=== PATIENT | female | born 1970 | race Caucasian/White ===

== ENCOUNTER 2016-07-06 16:05 | Inpatient (IN) | payer OTHER ==
[~2016-07-06] VITALS: Ht 160 cm; Wt 72.5 kg
[~2016-07-06 16:05] MED LIST: CYCL-36 PO; FURO20 PO; HYDR-3129 PO; HYDR-3533 PO; LABE100 PO; NYST100010 TOP; PREN0.01 PO; ZOLP1TAB32 PO
[2016-07-06 16:06] VITALS: BP 142/93; PULSE 133; RESP 16; TEMP 99; O2SAT 99
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
[2016-07-06] MEDS ORDERED: SODIUM CHLOR 0.9% 1000 ML INJ 1,000 ML IV ONE (16:45)
[2016-07-06 17:11] LABS: AUTOMATED NEUTROPHIL # 8.7 TH/MM3 (1.8-7.7); BASOPHIL # 0.1 TH/MM3 (0-0.2); BASOPHIL % 0.9 % (0.0-2.0); EOSINOPHIL # 0.5 TH/MM3 (0-0.4); EOSINOPHIL % 4.8 % (0.0-4.0); HEMATOCRIT 39.6 % (35.0-46.0); LYMPH % 3.5 % (9.0-44.0); LYMPHOCYTE # 0.4 TH/MM3 (1.0-4.8); MEAN CELL VOLUME 93.4 FL (80.0-100.0); MEAN CORPUSCULAR HEMOGLOBIN 30.7 PG (27.0-34.0); MEAN CORPUSCULAR HGB CONC 32.9 % (32.0-36.0); NEUT % 83.8 % (16.0-70.0); PLATELET COUNT 51 TH/MM3 (150-450); RED BLOOD COUNT 4.24 MIL/MM3 (4.00-5.30); RED CELL DISTRIBUTION WIDTH 16.9 % (11.6-17.2); WHITE BLOOD COUNT 10.3 TH/MM3 (4.0-11.0)
[2016-07-06 17:14] LABS: HEMO FLAGS AUTO DIFF
[2016-07-06 17:41] LABS: BICARBONATE 21.6 MEQ/L (21.0-32.0)
[2016-07-06 17:46] LABS: POTASSIUM 4.9 MEQ/L (3.5-5.1)
[2016-07-06 17:59] LABS: BANDS 35 % (0-6); METAMYELOCYTES 4 % (0-1); MYELOCYTES 1 % (0-0); NEUTROPHIL # MANUAL DIFF 8.9 TH/MM3 (1.8-7.7); PLATELET ESTIMATE SMEAR LOW (NORMAL); PLATELET MORPHOLOGY NORMAL (NORMAL); POLYS (SEG NEUTROPHILS) 46 % (16-70); SCAN/DIFF FINAL DIFF MANUAL; WBC DIFF SAMPLE 100
[2016-07-06] MEDS ORDERED: SODIUM CHLOR 0.9% 1000 ML INJ 1,000 ML IV SCH (19:01)
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
[2016-07-06 19:15] VITALS: BP 151/75; PULSE 127; RESP 21; TEMP 98.8; O2SAT 99
[2016-07-06] MEDS ORDERED: ACETAMINOPHEN/CODEINE 300 MG/30 MG TAB PO ONE (19:15)
--- NOTE | 2016-07-06 19:37 | RADRPT ---
EXAM DATE/TIME: 07/06/2016 19:23 [facility] COMPARISON: CHEST SINGLE AP, February 10, 2016, 15:49. INDICATIONS : Chest pain. MEDICAL HISTORY : SURGICAL HISTORY : None. ENCOUNTER: Initial ACUITY: 1 day PAIN SCORE: 0/10 LOCATION: Bilateral chest FINDINGS: A single view of the chest demonstrates the lungs to be symmetrically aerated without evidence of mas s, infiltrate or effusion. The cardiomediastinal contours are unremarkable. Osseous structures are intact. CONCLUSION: No acute disease. Iban Mann MD on July 06, 2016 at 19:34 Board Certified Radiologist. This report was verified electronically.
[2016-07-06 21:12] VITALS: BP 142/74; PULSE 110; RESP 20; O2SAT 97
[2016-07-06] MEDS ORDERED: ONDANSETRON HCL 4 MG/2 ML VIAL IV PUSH PRN (21:15)
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
[2016-07-06] MEDS: LORazepam 2 MG/ML VIAL IV PUSH PRN (21:44)
--- NOTE | 2016-07-06 23:30 | RADRPT ---
EXAM DATE/TIME: 07/06/2016 22:23 [facility] COMPARISON: No previous studies available for comparison. INDICATIONS : Increased labs. MEDICAL HISTORY : Hypertension. . Migraines. Asthma. Back pain. Anxiety. SURGICAL HISTORY : Tonsillectomy. Gastric bypass. Dilation and curettage. Urethral stretching. ENCOUNTER: Initial ACUITY: 1 day PAIN SCORE: 4/10 LOCATION: Bilateral flank MEASUREMENTS: RIGHT KIDNEY: 12.2 x 6.1 x 5.9 cm LEFT KIDNEY: 12.4 x 6.1 x 6.6 cm FINDINGS: RIGHT KIDNEY: Renal cortex is normal in thickness and echotexture. No hydronephrosis, stone, or mass. LEFT KIDNEY: Renal cortex is normal in thickness and echotexture. No hydronephrosis, stone, or mass. BLADDER: Within normal limits given the degree of distension. CONCLUSION: Normal examination. Juan Alberto Raya MD on July 06, 2016 at 23:28 Board Certified Radiologist. This report was verified electronically.
[2016-07-07] VITALS (9 sets, daily range): BP systolic 129–154; BP diastolic 66–92; PULSE 120–132; RESP 20–35; TEMP 97.6–99.8; O2SAT 94–96
[2016-07-07] MEDS: MORPHINE SULFATE 4 MG/ML INJ IV PUSH PRN ×4 (00:42→21:47)
[2016-07-07 05:43] LABS: HEMATOCRIT 32.8 % (35.0-46.0); MEAN CELL VOLUME 92.3 FL (80.0-100.0); MEAN CORPUSCULAR HEMOGLOBIN 31.7 PG (27.0-34.0); MEAN CORPUSCULAR HGB CONC 34.4 % (32.0-36.0); PLATELET COUNT 26 TH/MM3 (150-450); RED BLOOD COUNT 3.56 MIL/MM3 (4.00-5.30); RED CELL DISTRIBUTION WIDTH 17.1 % (11.6-17.2); WHITE BLOOD COUNT 6.2 TH/MM3 (4.0-11.0)
[2016-07-07 05:46] LABS: HEMO FLAGS AUTO DIFF
[2016-07-07 06:02] LABS: BICARBONATE 16.4 MEQ/L (21.0-32.0); POTASSIUM 3.8 MEQ/L (3.5-5.1)
[2016-07-07 06:12] LABS: CALCIUM-PROTEIN CORRECTED 7.7 MG/DL (8.5-10.1); TOTAL BILIRUBIN ADULT 1.7 MG/DL (0.2-1.0)
[2016-07-07 07:05] LABS: BANDS 21 % (0-6); METAMYELOCYTES 14 % (0-1); MYELOCYTES 3 % (0-0); NEUTROPHIL # MANUAL DIFF 5.1 TH/MM3 (1.8-7.7); POLYS (SEG NEUTROPHILS) 43 % (16-70); PROMYELOCYTES 1 % (0-0); WBC DIFF SAMPLE 100
[2016-07-07 07:06] LABS: PLATELET ESTIMATE SMEAR LOW (NORMAL); PLATELET MORPHOLOGY NORMAL (NORMAL); SCAN/DIFF FINAL DIFF MANUAL
[2016-07-07] MEDS ORDERED: DEXT 5%-NACL 0.9% 1000 ML INJ 1,000 ML IV ONE (10:00)
[2016-07-07] MEDS ORDERED: DIATRIZOATE MEGLUM/DIATRIZOATE SOD 9 ML CUP PO ONE (11:15)
--- NOTE | 2016-07-07 11:45 | EKG ---
Date Performed: 07/06/2016 Time Performed: 16:39:44 PTAGE: 46 years EKG: SINUS TACHYCARDIA MARKED LEFT AXIS DEVIATION INCOMPLETE RIGHT BUNDLE BRANCH BLOCK SEPTAL MY OCARDIAL INFARCTION ABNORMAL ECG NO PREVIOUS TRACING DOCTOR: Shayne Fraga Interpretating Date/Time 07/07/2016 11:44:21
[2016-07-07 12:08] LABS: BACTERIA, URINE MANY /hpf; BLOOD, URINE MOD (NEG); COMMENT (UR) CULTURE INDICATED; CULTURE IF INDICATED CULTURE INDICATED; GLUCOSE,URINE NEG (NEG); KETONE, URINE NEG (NEG); NITRITE,URINE NEG (NEG); SQUAMOUS EPITHELIAL CELL URINE 1 /hpf (0-5); URINE COLOR YELLOW (YELLW/STRAW)
--- NOTE | 2016-07-07 13:13 | HHI.PR ---
Objective Vitals Vital Signs Date Time Temp Pulse Resp B/P Pulse Ox O2 Delivery O2 Flow Rate FiO2 07/07/16 12:00 98.4 128 22 129/92 95 07/07/16 08:00 98.8 130 20 145/75 95 07/07/16 07:39 Room Air 07/07/16 04:00 99.2 132 22 154/79 96 07/07/16 00:42 22 07/07/16 00:00 97.6 120 22 139/84 95 07/06/16 23:52 Room Air 07/06/16 21:12 110 20 142/74 97 Room Air 07/06/16 19:15 98.8 127 21 151/75 99 Room Air 07/06/16 16:06 99.0 133 16 142/93 99 Room Air 07/06/16 07/06/16 07/07/16 15:00 23:00 07:00 Intake Total 240 ml Balance 240 ml Intake Oral 240 ml # Voids 1 # Bowel Movements 0 Result Diagram: 07/07/16 0400 07/07/16 0400 Imaging Last 72 hours Impressions Chest X-Ray 07/06/16 0000 Signed Impressions: Service Date/Time: Wednesday, July 06, 2016 19:23 - CONCLUSION: No acute disease. MD Perri Conley Richard L MD Jul 07, 2016 13:13
[2016-07-07] MEDS: AZTREONAM INJ 1,000 MG in SODIUM CHLORIDE 0.9% INJ 100 ML IV SCH (15:16)
--- NOTE | 2016-07-07 15:21 | RADRPT ---
EXAM DATE/TIME: 07/07/2016 14:39 [facility] COMPARISON: No previous studies available for comparison. INDICATIONS : Altered mental status RADIATION DOSE: 49.32 CTDIvol (mGy) MEDICAL HISTORY : Hypertension. SURGICAL HISTORY : ENCOUNTER: Initial ACUITY: 1 day PAIN SCALE: 2/10 LOCATION: TECHNIQUE: Multiple contiguous axial images were obtained of the head. Using automated exposure control and adj ustment of the mA and/or kV according to patient size, radiation dose was kept as low as reasonably a chievable to obtain optimal diagnostic quality images. FINDINGS: CEREBRUM: The ventricles are normal for age. No evidence of midline shift, mass lesion, hemorrhage or acute in farction. No extra-axial fluid collections are seen. POSTERIOR FOSSA: The cerebellum and brainstem are intact. The 4th ventricle is midline. The cerebellopontine angle i s unremarkable. EXTRACRANIAL: The visualized portion of the orbits is intact. SKULL: The calvaria is intact. No evidence of skull fracture. CONCLUSION: No acute disease. Scotty Shaw MD on July 07, 2016 at 15:19 Board Certified Radiologist. This report was verified electronically.
[2016-07-07 15:38] LABS: APTT (PATIENT) 40.6 SEC (24.3-30.1); INTERNATIONAL NORMALIZED RATIO 1.5 RATIO; PROTHROMBIN TIME - PATIENT 16.7 SEC (9.8-11.6)
--- NOTE | 2016-07-07 16:05 | RADRPT ---
EXAM DATE/TIME: 07/07/2016 14:42 [place] COMPARISON: US KIDNEY/RENAL/BLADDER, July 06, 2016, 22:23. INDICATIONS : Abdomen pain ORAL CONTRAST: Prescribed oral contrast ingested. RADIATION DOSE: 8.63 CTDIvol (mGy) MEDICAL HISTORY : Hypertension. SURGICAL HISTORY : ENCOUNTER: Initial ACUITY: 1 day PAIN SCALE: 4/10 LOCATION: TECHNIQUE: Volumetric scanning of the abdomen and pelvis was performed. Using automated exposure control and ad justment of the mA and/or kV according to patient size, radiation dose was kept as low as reasonably achievable to obtain optimal diagnostic quality images. FINDINGS: LOWER LUNGS: Small right pleural effusion is noted. Lung bases are otherwise clear. LIVER: No evidence of dilated biliary ducts or focal mass. Small gallstone is identified in the gallbladder. There is no pericholecystic fluid or wall thickening. SPLEEN: Normal size without lesion. PANCREAS: Within normal limits. KIDNEYS: The kidneys are symmetrically enlarged and demonstrate diffuse cortical thickening. There is no evide nce of hydronephrosis, nephrolithiasis or discrete mass. Mild perinephric stranding is noted. ADRENAL GLANDS: Within normal limits. VASCULAR: There is no aortic aneurysm. BOWEL/MESENTERY: Air is present throughout the GI tract. There are air-filled loops of small bowel containing air-flui d levels. Several are mildly distended. Significant gas and stool is present in the colon. There is n o significant wall edema. Post surgical changes are identified in the epigastric region. A staple line is identified along the lesser curvature of the stomach. The patient has undergone a gastric bypass with a gastrojejunos david. There is free flow of contrast into the jejunum. A fluid-filled gastric remnant is identified w hich leads to the duodenum. There is no contrast in this fluid-filled segments. ABDOMINAL WALL: Mild edematous changes are developing within the abdominal wall. RETROPERITONEUM: There is no lymphadenopathy. BLADDER: Catheter is identified. Urine bladder is collapsed. REPRODUCTIVE: Postsurgical clips are seen along the adnexa and broad ligament. INGUINAL: There is no lymphadenopathy or hernia. MUSCULOSKELETAL: Within normal limits for patient age. CONCLUSION: Status post gastric bypass with what may be a fluid-filled gastric remnant. This may be chronic howev er a blind loop syndrome should be excluded. Enlarged kidneys with diffuse cortical thickening; evaluate for possible bilateral pyelonephritis. Intestinal ileus without evidence of mechanical obstruction. Ischemic bowel should be excluded. Cholelithiasis without evidence of gallbladder inflammation. Developing anasarca Scotty Shaw MD on July 07, 2016 at 15:38 Board Certified Radiologist. This report was verified electronically.
[2016-07-07] MEDS ORDERED: SODIUM BICARBONATE 8.4% INJ 75 MEQ in SODIUM CHLOR 0.45% 1000 ML INJ 1,000 ML IV SCH (17:00)
[2016-07-07 18:08] LABS: INDIRECT BILIRUBIN 0.6 MG/DL (0.0-0.8); TOTAL BILIRUBIN ADULT 1.9 MG/DL (0.2-1.0)
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
[2016-07-07 20:01] LABS: AUTOMATED NEUTROPHIL # 7.4 TH/MM3 (1.8-7.7); BASOPHIL % 0.1 % (0.0-2.0); EOSINOPHIL # 0.2 TH/MM3 (0-0.4); EOSINOPHIL % 2.2 % (0.0-4.0); HEMATOCRIT 33.3 % (35.0-46.0); HEMO FLAGS AUTO DIFF; LYMPH % 7.2 % (9.0-44.0); LYMPHOCYTE # 0.6 TH/MM3 (1.0-4.8); MEAN CELL VOLUME 92.4 FL (80.0-100.0); MEAN CORPUSCULAR HEMOGLOBIN 31.5 PG (27.0-34.0); MEAN CORPUSCULAR HGB CONC 34.1 % (32.0-36.0); MONO % 6.3 % (0.0-8.0); NEUT % 84.2 % (16.0-70.0); RED CELL DISTRIBUTION WIDTH 17.3 % (11.6-17.2); WHITE BLOOD COUNT 8.8 TH/MM3 (4.0-11.0)
[2016-07-07 20:03] LABS: PLATELET COUNT 9 TH/MM3 (150-450)
[2016-07-07 20:28] LABS: BANDS 28 % (0-6); METAMYELOCYTES 4 % (0-1); MYELOCYTES 1 % (0-0); POLYS (SEG NEUTROPHILS) 58 % (16-70); WBC DIFF SAMPLE 100
[2016-07-07 20:29] LABS: DOHLE BODIES PRESENT (NONE SEEN); PLATELET ESTIMATE SMEAR LOW (NORMAL); PLATELET MORPHOLOGY ENLARGED (NORMAL); SCAN/DIFF FINAL DIFF MANUAL; TOXIC GRANULATION 1+ (NORMAL)
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
[2016-07-07] MEDS: SODIUM BICARBONATE 8.4% INJ 150 MEQ in DEXTROSE 5% IN WATE 1000ML INJ 1,000 ML IV SCH ×2 (21:20)
[2016-07-08] VITALS (15 sets, daily range): BP systolic 124–168; BP diastolic 65–94; PULSE 118–130; RESP 20–41; TEMP 97.8–98.8; O2SAT 88–96
[2016-07-08] MEDS: MORPHINE SULFATE 4 MG/ML INJ IV PUSH PRN (01:54)
[2016-07-08] MEDS: AZTREONAM INJ 1,000 MG in SODIUM CHLORIDE 0.9% INJ 100 ML IV SCH ×2 (01:54→15:00)
[2016-07-08] MEDS ORDERED: CHLORHEXIDINE GLUCONATE 2 % 1 PACK (2 CLOTHS)(extra cloths) TOPICAL PRN (02:45)
[2016-07-08] MEDS ORDERED: GLUCAGON 1 MG/ML VIAL OTHER PRN ×2 (04:00→09:30)
[2016-07-08] MEDS: CHLORHEXIDINE GLUCONATE 2 % 1 PACK (2 CLOTHS)(taper/protocol) TOPICAL SCH (04:00)
[2016-07-08] MEDS: DEXTROSE 50% IN WATER 50 ML VIAL(D50) IV PUSH PRN ×3 (04:25→09:35)
[2016-07-08 05:29] LABS: HEMATOCRIT 30.6 % (35.0-46.0); MEAN CORPUSCULAR HEMOGLOBIN 31.9 PG (27.0-34.0); MEAN CORPUSCULAR HGB CONC 34.7 % (32.0-36.0); PLATELET COUNT 33 TH/MM3 (150-450); RED BLOOD COUNT 3.32 MIL/MM3 (4.00-5.30); RED CELL DISTRIBUTION WIDTH 17.1 % (11.6-17.2); WHITE BLOOD COUNT 6.9 TH/MM3 (4.0-11.0)
[2016-07-08 05:32] LABS: HEMO FLAGS AUTO DIFF
[2016-07-08 05:59] LABS: APTT (PATIENT) 40.1 SEC (24.3-30.1); INTERNATIONAL NORMALIZED RATIO 1.5 RATIO; PROTHROMBIN TIME - PATIENT 16.7 SEC (9.8-11.6)
[2016-07-08 06:04] LABS: ALKALINE PHOSPHATASE 131 U/L (45-117); ALT (GPT) 160 U/L (10-53); ANION GAP 16 MEQ/L (5-15); AST (GOT) 111 U/L (15-37); BICARBONATE 18.1 MEQ/L (21.0-32.0); BLOOD UREA NITROGEN 60 MG/DL (7-18); CHLORIDE 90 MEQ/L (98-107); FERRITIN 222 NG/ML (8-252); GLOMERULAR FILTRATION RATE 9 ML/MIN (>89); MAGNESIUM 1.4 MG/DL (1.5-2.5); POTASSIUM 4.4 MEQ/L (3.5-5.1); TOTAL BILIRUBIN ADULT 2.5 MG/DL (0.2-1.0); TRANSFERRIN IRON PROFILE 131 MG/DL (200-360)
[2016-07-08 06:21] LABS: CALCIUM-PROTEIN CORRECTED 7.2 MG/DL (8.5-10.1); SODIUM (NA) 124 MEQ/L (136-145)
[2016-07-08 08:55] LABS: BANDS 49 % (0-6); METAMYELOCYTES 1 % (0-1); NEUTROPHIL # MANUAL DIFF 6.6 TH/MM3 (1.8-7.7); POLYS (SEG NEUTROPHILS) 45 % (16-70); WBC DIFF SAMPLE 100
[2016-07-08 08:56] LABS: DOHLE BODIES PRESENT (NONE SEEN)
[2016-07-08 08:57] LABS: PLATELET ESTIMATE SMEAR LOW (NORMAL); PLATELET MORPHOLOGY NORMAL (NORMAL); SCAN/DIFF FINAL DIFF MANUAL; TOXIC VACUOLATION PRESENT (NONE SEEN)
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
[2016-07-08] MEDS ORDERED: RESP: ALBUTEROL 2.5 MG/IPRATROPIUM 0.5 MG NEB (PRN) NEB (09:30)
[2016-07-08] MEDS ORDERED: DEXTROSE 50% IN WATER 50 ML VIAL(D50) IV PUSH PRN (09:30)
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
[2016-07-08] MEDS: INSULIN NovoLIN REGULAR SUPPLEMENTAL SCALE SQ SCH ×4 (10:00→22:00)
[2016-07-08] MEDS ORDERED: MAGNESIUM SULFATE 1 GM PREMIX 100 ML IV ONE (10:00)
[2016-07-08] MEDS: DILTIAZEM HCL 60 MG TAB PO SCH ×4 (10:06→20:42)
[2016-07-08] MEDS ORDERED: CALCIUM GLUCONATE INJ 1 GM in SODIUM CHLORIDE 0.9% INJ 100 ML IV ONE (11:00)
--- NOTE | 2016-07-08 12:11 | PD.ONC.PN ---
Subjective Subjective Remarks Afebrile overnight. Patient feeling fatigued. No bleeding. Just finished with echo. Objective Data Date Time Temp Pulse Resp B/P Pulse Ox O2 Delivery O2 Flow Rate FiO2 07/08/16 08:00 Nasal Cannula 5.00 07/08/16 06:00 128 07/08/16 04:00 130 07/08/16 04:00 97.8 130 32 168/72 92 07/08/16 02:00 130 07/08/16 00:00 128 07/08/16 00:00 98.0 128 32 151/70 90 07/07/16 22:00 130 07/07/16 20:00 130 07/07/16 20:00 98.3 130 35 145/66 94 07/07/16 19:00 89 Nasal Cannula 3.00 07/07/16 18:00 129 07/07/16 16:00 99.8 132 22 131/84 94 07/07/16 12:00 98.4 128 22 129/92 95 07/08/16 07/08/16 07/08/16 07:00 15:00 23:00 Intake Total 964 ml Output Total 100 ml Balance 864 ml Result Diagram: 07/08/16 0443 07/08/16 0443 Laboratory Results Laboratory Tests Test 07/07/16 07/07/16 07/07/16 07/07/16 15:10 17:35 18:45 19:40 Prothrombin Time 16.7 SEC Prothromb Time International 1.5 RATIO Ratio Activated Partial 40.6 SEC Thromboplast Time Fibrinogen 443 mg/dL Haptoglobin 182 MG/DL Phosphorus Level 5.2 MG/DL Total Bilirubin 1.9 MG/DL Direct Bilirubin 1.3 MG/DL Indirect Bilirubin 0.6 MG/DL Aspartate Amino Transf 100 U/L (AST/SGOT) Alanine Aminotransferase 188 U/L (ALT/SGPT) Alkaline Phosphatase 135 U/L Lactate Dehydrogenase 666 U/L Total Protein 5.1 GM/DL Albumin 1.8 GM/DL Complement C3 73 MG/DL Complement C4 18 MG/DL Nasal Screen MRSA (PCR) NEGATIVE White Blood Count 8.8 TH/MM3 Red Blood Count 3.60 MIL/MM3 Hemoglobin 11.3 GM/DL Hematocrit 33.3 % Mean Corpuscular Volume 92.4 FL Mean Corpuscular Hemoglobin 31.5 PG Mean Corpuscular Hemoglobin 34.1 % Concent Red Cell Distribution Width 17.3 % Platelet Count 9 TH/MM3 Mean Platelet Volume 9.2 FL Neutrophils (%) (Auto) 84.2 % Lymphocytes (%) (Auto) 7.2 % Monocytes (%) (Auto) 6.3 % Eosinophils (%) (Auto) 2.2 % Basophils (%) (Auto) 0.1 % Neutrophils # (Auto) 7.4 TH/MM3 Lymphocytes # (Auto) 0.6 TH/MM3 Monocytes # (Auto) 0.6 TH/MM3 Eosinophils # (Auto) 0.2 TH/MM3 Basophils # (Auto) 0.0 TH/MM3 CBC Comment AUTO DIFF Differential Total Cells 100 Counted Neutrophils % (Manual) 58 % Band Neutrophils % 28 % Lymphocytes % 7 % Monocytes % 2 % Neutrophils # (Manual) 8.0 TH/MM3 Metamyelocytes 4 % Myelocytes 1 % Differential Comment FINAL DIFF MANUAL Toxic Granulation 1+ Dohle Bodies PRESENT Platelet Estimate LOW Platelet Morphology Comment ENLARGED Red Cell Morphology Comment NORMAL Lactic Acid Level 2.6 mmol/L Test 07/08/16 07/08/16 07/08/16 01:29 04:43 05:18 Blood Type A POSITIVE Blood Bank Comment White Blood Count 6.9 TH/MM3 Red Blood Count 3.32 MIL/MM3 Hemoglobin 10.6 GM/DL Hematocrit 30.6 % Mean Corpuscular Volume 92.0 FL Mean Corpuscular Hemoglobin 31.9 PG Mean Corpuscular Hemoglobin 34.7 % Concent Red Cell Distribution Width 17.1 % Platelet Count 33 TH/MM3 Mean Platelet Volume 8.3 FL Neutrophils (%) (Auto) % Lymphocytes (%) (Auto) % Monocytes (%) (Auto) % Eosinophils (%) (Auto) % Basophils (%) (Auto) % Neutrophils # (Auto) TH/MM3 Lymphocytes # (Auto) TH/MM3 Monocytes # (Auto) TH/MM3 Eosinophils # (Auto) TH/MM3 Basophils # (Auto) TH/MM3 CBC Comment AUTO DIFF Differential Total Cells 100 Counted Neutrophils % (Manual) 45 % Band Neutrophils % 49 % Lymphocytes % 5 % Neutrophils # (Manual) 6.6 TH/MM3 Metamyelocytes 1 % Differential Comment FINAL DIFF MANUAL Toxic Vacuolation PRESENT Dohle Bodies PRESENT Platelet Estimate LOW Platelet Morphology Comment NORMAL Red Cell Morphology Comment NORMAL Sodium Level 124 MEQ/L Potassium Level 4.4 MEQ/L Chloride Level 90 MEQ/L Carbon Dioxide Level 18.1 MEQ/L Anion Gap 16 MEQ/L Blood Urea Nitrogen 60 MG/DL Creatinine 5.18 MG/DL Estimat Glomerular Filtration 9 ML/MIN Rate Random Glucose 144 MG/DL Lactic Acid Level 3.3 mmol/L Calcium Level 6.2 MG/DL Protein Corrected Calcium 7.2 MG/DL Phosphorus Level 3.9 MG/DL Magnesium Level 1.4 MG/DL Iron Level 28 MCG/DL Total Iron Binding Capacity 183 MCG/DL Percent Iron Saturation 15.3 % Ferritin 222 NG/ML Total Bilirubin 2.5 MG/DL Aspartate Amino Transf 111 U/L (AST/SGOT) Alanine Aminotransferase 160 U/L (ALT/SGPT) Alkaline Phosphatase 131 U/L Total Protein 5.0 GM/DL Albumin 1.7 GM/DL Vitamin B12 Level GREATER THAN 2000 PG/ML Prothrombin Time 16.7 SEC Prothromb Time International 1.5 RATIO Ratio Activated Partial 40.1 SEC Thromboplast Time Fibrinogen 377 mg/dL Culture Results Microbiology Date/Time Procedure Status Source Growth 07/07/16 11:00 Urine Culture Received Urine Clean Catch Pending 07/07/16 12:45 Aerobic Blood Culture - Preliminary Resulted Blood Peripheral Gram Negative Stanton 07/07/16 12:45 Anaerobic Blood Culture - Preliminary Resulted Gram Negative Stanton 07/07/16 12:53 Aerobic Blood Culture - Preliminary Resulted Blood Peripheral Gram Negative Stanton 07/07/16 12:53 Anaerobic Blood Culture - Preliminary Resulted Gram Negative Stanton Administered Medications Medications (Trade) Dose Ordered Sig/Dulce Route PRN Reason Start Time Stop Time Status Last Admin Dose Admin Morphine Sulfate (Morphine Inj) 2 mg Q3H PRN IV PUSH pain level 3-10 07/06/16 21:15 07/08/16 01:54 Lorazepam 1 mg 1 mg Q6H PRN IV PUSH anxiety 07/06/16 21:15 07/06/16 21:44 Aztreonam 1000 mg/ Sodium Chloride 100 ml @ 200 mls/hr Q12H IV 07/07/16 15:00 07/08/16 01:54 Sodium Bicarbonate/ Dextrose (Sodium Bicarbonate 8.4% Inj/D5W 1000 ml Inj) 1,150 ml @ 84 mls/hr [id number] IV 07/07/16 21:00 07/07/16 21:20 Chlorhexidine Gluconate (Chlorhexidine 2% Cloth) 3 pack DAILY@04 TOPICAL 4/18/17 04:00 07/12/16 04:01 07/08/16 04:00 Dextrose (D50w (Vial) Inj) 25 ml UNSCH PRN IV PUSH HYPOGLYCEMIA-SEE COMMENTS 07/08/16 04:00 07/08/16 09:35 Diltiazem HCl (Cardizem) 60 mg QID PO 07/08/16 10:00 07/08/16 10:06 Objective Remarks GENERAL: Middle aged female, lying in bed, appears weak. SKIN: Warm and dry. HEAD: Atraumatic. Normocephalic. EYES: No injection or drainage. ENT: No nasal bleeding or discharge. NECK: Trachea midline. CARDIOVASCULAR: Regular rate and rhythm. RESPIRATORY: diminished at bases. occasional rhonchi. on 5L O2 via NC. GASTROINTESTINAL: Abdomen soft, non-tender, nondistended. MUSCULOSKELETAL: Extremities without clubbing, cyanosis, or edema. No obvious deformities. NEUROLOGICAL: Awake and alert. lethargic. Assessment/Plan Problem List: (1) Thrombocytopenia Status: Acute Plan: 07/08: coags remain prolonged. thrombocytopenia likely d/t consumption with sepsis. will order u/s LE to r/o DVT. expect thrombocytopenia to resolve as sepsis resolves. --most likely due to sepsis syndrome. --other differential is TTP versus HUS versus ITP versus HIT. --peripheral blood smear reviewed with pathologist-->Significant numbers of red cell fragment schistocytes are not present and the microangiopathic hemolytic process is not favored. L --LDH is high at 666 which I believe is due to liver injury and not from the hemolysis. Therefore, I do not think that we are dealing with either TTP or HUS. --if platelet count drops to less than 10, recommend transfusion of platelets Assessment 46y/o female with acute thrombocytopenia. h/o Morbid obesity, s/p gastric bypass Anxiety Ureteral stenosis Attending Statement sob and rtestless BC = Gram negative E. Coli Thrombocytopenia is due to sepsis and DIC consult ID for A/B MG. Has Dawna Guy Jul 08, 2016 12:11 Kalpana Logan MD Jul 08, 2016 20:52
[2016-07-08] MEDS: RESP: ALBUTEROL 2.5 MG/IPRATROPIUM 0.5 MG NEB (SCH) NEB ×3 (12:34→21:09)
[2016-07-08] MEDS: SODIUM BICARBONATE 8.4% INJ 150 MEQ in DEXTROSE 5% IN WATE 1000ML INJ 1,000 ML IV SCH ×2 (12:36)
--- NOTE | 2016-07-08 14:54 | EC ---
Study Study Date:07/08/2016 STUDY CONCLUSIONS SUMMARY - Left ventricle: The cavity size was normal. Wall thickness was normal. Systolic function was mildly reduced. The estimated ejection fraction was in the range of 45% to 50%. Diffuse hypokinesis. - Aortic valve: Valve area: 3.14cm^2 (Vmax). Impressions: No evidence of endocarditis. If LV function is below 40, please consider prescribing an ACEI or ARB or document rationale for non-use. PROCEDURE DATA STUDY STATUS: Elective. Procedure: Transthoracic echocardiography. Image quality was good. Scanning was performed from the parasternal, apical, and subcostal acoustic windows. Study completion: The patient tolerated the procedure well. Transthoracic echocardiography. M-mode, complete 2D, complete spectral Doppler, and color Doppler. Height: Height: 63in. Weight: Weight: 153.7lb. Body mass index: BMI: 27.3kg/m^2. Body surface area: BSA: 1.73m^2. Patient status: Inpatient. CARDIAC ANATOMY LEFT VENTRICLE: The cavity size was normal. Wall thickness was normal. Systolic function was mildly reduced. The estimated ejection fraction was in the range of 45% to 50%. Diffuse hypokinesis. AORTIC VALVE: Trileaflet; normal thickness leaflets. Doppler: Transvalvular velocity was within the normal range. There was no stenosis. No regurgitation. Valve area: 3.14cm^2 (Vmax). Indexed valve area: 1.82cm^2/m^2 (Vmax). AORTA: Aortic root: The aortic root was normal in size. MITRAL VALVE: Structurally normal valve. Doppler: Transvalvular velocity was within the normal range. There was no evidence for stenosis. No regurgitation. Valve area by pressure half-time: 5.79cm^2. Indexed valve area by pressure half-time: 3.35cm^2/m^2. LEFT ATRIUM: The atrium was normal in size. RIGHT VENTRICLE: The cavity size was normal. Wall thickness was normal. PULMONIC VALVE: Doppler: Transvalvular velocity was within the normal range. There was no evidence for stenosis. No regurgitation. TRICUSPID VALVE: Structurally normal valve. Doppler: Transvalvular velocity was within the normal range. No regurgitation. PULMONARY ARTERY: The main pulmonary artery was normal-sized. Systolic pressure was within the normal range. RIGHT ATRIUM: The atrium was normal in size. PERICARDIUM: There was no pericardial effusion. SYSTEMIC VEINS: Inferior vena cava: The vessel was normal in size. Patient weight: 153.7lb _Ejection fraction:_ 65-75% _Fractional shortening:_ 32% up to 5Kg 5-11.5Kg 11.6-22.9Kg 23-45Kg 45-57Kg Aortic Root 7-13 <17 13-22 17-27 17-27 LA diam 6-13 <23 24-38 33-47 37-40 RVID 10-17 7-15 7-15 7-18 8-17 LVIDd 12-22 <32 24-38 33-47 37-40 LVPW 2-4 3-6 5-7 6-8 7-8 IVS 2-4 3-6 5-7 6-8 7-8 BASIC MEASUREMENTS ADULT NORMAL Left ventricle LV internal dimension, ED, chordal *41.7 mm 43-52 level, PLAX LV internal dimension, ES, chordal 33.9 mm 23-38 level, PLAX Fractional shortening, chordal level, *19 % >29 PLAX LV posterior wall thickness, ED 10.4 mm IVS/LVPW ratio, ED 1.03 <1.3 Volume, ED, MOD, 1-plane 79 ml Volume, ES, MOD, 1-plane 42 ml Ejection fraction, MOD, 1-plane 47 % Stroke volume, MOD, 1-plane 37 ml Volume index, ED, MOD, 1-plane 46 ml/m^2 Volume index, ES, MOD, 1-plane 24 ml/m^2 Stroke index, MOD, 1-plane 21.4 ml/m^2 Ventricular septum Septal thickness, ED 10.7 mm Aortic valve Leaflet separation 21 mm 15-26 Aorta Root diameter, ED 32 mm Left atrium Anterior-posterior dimension 29 mm Anterior-posterior dimension index 1.68 cm/m^2 <2.2 Right ventricle RV internal dimension, ED, PLAX 23.7 mm 19-38 BASIC MEASUREMENTS ADULT NORMAL Aortic valve Leaflet separation 21 mm 15-26 Aorta Root diameter, ED 32 mm 20-37 DOPPLER MEASUREMENTS ADULT NORMAL Aortic valve Peak velocity, S 113 cm/s Valve area, Vmax 3.14 cm^2 Valve area index, Vmax 1.82 cm^2/m^2 Mitral valve Pressure half-time 38 ms Valve area, pressure half-time 5.79 cm^2 Valve area index, pressure half-time 3.35 cm^2/m^2 Pulmonic valve Peak velocity, S 105 cm/s LEGEND: Mean values are shown as u=mean value. Asterisk (*) tenorio values outside specified normal range. Prepared and signed by Lainey Meza [id number]
--- NOTE | 2016-07-08 17:10 | HHI.NPPN ---
Subjective General Problems: Anemia Renal Failure: Acute History of Present Illness 46-year-old female with a past medical history of morbid obesity, anxiety, history of urethral stenosis came to the hospital with back pain and dark urine. I was called to see the patient for elevated BUN and creatinine. The patient previously has creatinine of 0.4-0.5 this was in 2014. Additional Remarks Patient is alert, with nasal cannula, not in distress. Review of Systems General Constitutional: Fatigue Cardiovascular Cardiac: Palpitations, LEA Objective Data Data 07/07/16 07/08/16 19:00 07:00 Intake Total 500 ml 1114 ml Output Total 600 ml 150 ml Balance -100 ml 964 ml Intake Oral 240 ml IV Total 260 ml 920 ml Platelets 194 ml Output Urine Total 600 ml 150 ml # Bowel Movements 0 Vital Signs Date Time Temp Pulse Resp B/P Pulse Ox O2 Delivery O2 Flow Rate FiO2 07/08/16 14:00 121 07/08/16 12:00 98.3 121 22 155/71 92 07/08/16 12:00 121 07/08/16 10:00 128 07/08/16 08:00 Nasal Cannula 5.00 07/08/16 08:00 98.2 126 20 166/94 92 07/08/16 08:00 126 07/08/16 06:00 128 07/08/16 04:00 130 07/08/16 04:00 97.8 130 32 168/72 92 07/08/16 02:00 130 07/08/16 00:00 128 07/08/16 00:00 98.0 128 32 151/70 90 07/07/16 22:00 130 07/07/16 20:00 130 07/07/16 20:00 98.3 130 35 145/66 94 07/07/16 19:00 89 Nasal Cannula 3.00 07/07/16 18:00 129 -: 07/08/16 0443 07/08/16 0443 Physical Exam General Appearance: No Acute Distress, Anxious Eyes Eye Exam: Pupils Equal Neck Neck Exam: Neck Supple Pulmonary Resp Exam: Breath Sounds Equal, No Distress, Rhonchi, Decreased Bases Cardiology CV Exam: Tachycardia Gastrointestinal/Abdomen GI Exam: Soft, Non-Tender, Bowel Sounds Present Extremeties Extremities Exam: Trace Edema Neurologic Neuro Exam: Alert, Awake, Oriented Psychiatric Psych Exam: Appropriate Responses Assessment/Plan Assessment Summary: MICHAEL/Acute Renal Failure Problem List: (1) Sinus tachycardia (2) Thrombocytopenia (3) Hyponatremia (4) UTI (lower urinary tract infection) (5) Bandemia (6) Elevated LFTs (7) Lactic acidosis (8) Sepsis (9) Acute kidney injury Plan Patient has low urine out put. BUN and Creatinine increased. HR still elevated, BP is stable. Peripheral smear results noted. Most likely has MICHAEL related to sepsis. MELCHOR and ANCA pending. BC growing E.Coli I will start on Lasix and if no improvement , will nee Dialysis. Fernie Vega MD Jul 08, 2016 17:10
[2016-07-08] MEDS: FUROSEMIDE 40 MG/4 ML VIAL IV PUSH SCH ×2 (17:26→20:42)
[2016-07-08 20:23] LABS: BLOOD GAS BASE EXCESS -0.7 mmol/L (-2-2); BLOOD GAS CARBOXYHEMOGLOBIN 0.5 % (0-4); BLOOD GAS HCO3 23 mmol/L (22-26); BLOOD GAS METHEMOGLOBIN 3.7 % (0-2); BLOOD GAS O2 HGB SATURATION 89 % (90-100); BLOOD GAS PCO2 33 mmHg (38-42); BLOOD GAS PO2 79 mmHg (61-120); BLOOD GAS TOTAL HGB 11.1 G/DL (12.0-16.0); TEMP CORR TO 98.6
[2016-07-08 20:24] LABS: CRITICAL VALUE YES; DRAW SITE RT RADIAL; FIO2 100 %; NUMBER OF ARTERIAL PUNCTURES 1; STAT YES; ULNAR PULSE PRESENT
--- NOTE | 2016-07-08 20:25 | RADRPT ---
EXAM DATE/TIME: 07/08/2016 18:43 [facility] COMPARISON: No previous studies available for comparison. INDICATIONS : Bilateral leg pain and swelling. MEDICAL HISTORY : Hypertension. Asthma. Sleep apnea. Urethral stretching. SURGICAL HISTORY : Tonsillectomy.Gastric bypass. D&C. ENCOUNTER: Initial ACUITY: 4 - 6 days PAIN SCORE: 5/10 LOCATION: Bilateral legs. TECHNIQUE: Venous ultrasound of the left and right leg was performed from the inguinal ligament to the proximal calf. Real-time, color Doppler and spectral tracing, compression and augmentation techniques were us ed. FINDINGS: RIGHT LEG: There is normal compressibility of the deep venous system from the inguinal region to the proximal ca lf. No echogenic clot is seen in the lumen of the common femoral, femoral, popliteal, and posterior tibial veins. There is a normal response of the venous system to proximal and distal augmentation an d respiration. LEFT LEG: There is normal compressibility of the deep venous system from the inguinal region to the proximal ca lf. No echogenic clot is seen in the lumen of the common femoral, femoral, popliteal, and posterior tibial veins. There is a normal response of the venous system to proximal and distal augmentation an d respiration. CONCLUSION: Normal examination. Iban Mann MD on July 08, 2016 at 20:22 Board Certified Radiologist. This report was verified electronically.
[2016-07-08] MEDS ORDERED: Vancomycin Consult Pharmacy 1 EA OTHER SCH (20:45)
[2016-07-08] MEDS ORDERED: FUROSEMIDE 40 MG/4 ML VIAL IV PUSH ONE (20:45)
[2016-07-08] MEDS ORDERED: VANCOMYCIN INJ 1,000 MG in SODIUM CHLOR 0.9% 250 ML INJ 250 ML IV SCH (20:45)
[2016-07-08] MEDS ORDERED: AZITHROMYCIN INJ 500 MG in SODIUM CHLOR 0.9% 250 ML INJ 250 ML IV SCH (21:00)
--- NOTE | 2016-07-08 21:40 | RADRPT ---
EXAM DATE/TIME: 07/08/2016 20:22 [facility] COMPARISON: CHEST SINGLE AP, July 06, 2016, 19:23. INDICATIONS : Short of breath. MEDICAL HISTORY : Renal insufficiency, chronic. SURGICAL HISTORY : None. ENCOUNTER: Initial ACUITY: 4 - 6 days PAIN SCORE: 10/10 LOCATION: Bilateral chest FINDINGS: There is development of bilateral airspace disease in the lungs since July 06, left greater than rig ht. Differential diagnosis includes asymmetric edema and infection. Heart size enlarged. Probable tra ce pleural fluid. No pneumothorax. CONCLUSION: 1. Development of bilateral airspace disease since July 06, left worse than right. Differential diag nosis includes asymmetric edema and infection/aspiration. Iban Mann MD on July 08, 2016 at 21:36 Board Certified Radiologist. This report was verified electronically.
[2016-07-08] MEDS ORDERED: VANCOMYCIN INJ 800 MG in SODIUM CHLOR 0.9% 250 ML INJ 250 ML IV ONE (22:00)
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
[2016-07-08] MEDS: methylPREDNISolone SOD SUCC 40 MG/1 ML VIAL IV SCH (23:16)
[2016-07-08] MEDS: MEROPENEM 1,000 MG/NS 100 ML IV SCH ×2 (23:17)
[2016-07-09] VITALS (21 sets, daily range): BP systolic 96–139; BP diastolic 55–67; PULSE 103–117; RESP 12–40; TEMP 97.8–100; O2SAT 91–99
[2016-07-09] MEDS ORDERED: ETOMIDATE 20 MG/10 ML VIAL ONE (00:46)
[2016-07-09] MEDS ORDERED: PROPOFOL 1000 MG/100 ML INJ 100 ML ONE ×2 (00:47→04:01)
[2016-07-09] MEDS ORDERED: SUCCINYLCHOLINE CHLORIDE 200 MG/10 ML VIAL ONE (00:48)
[2016-07-09 01:44] LABS: BLOOD GAS BASE EXCESS -1.1 mmol/L (-2-2); BLOOD GAS CARBOXYHEMOGLOBIN 0.1 % (0-4); BLOOD GAS HCO3 23 mmol/L (22-26); BLOOD GAS METHEMOGLOBIN 3.8 % (0-2); BLOOD GAS O2 HGB SATURATION 93 % (90-100); BLOOD GAS OXYGEN CONTENT 15.5 Vol % (12.0-20.0); BLOOD GAS PCO2 40 mmHg (38-42); BLOOD GAS PO2 283 mmHg (61-120); BLOOD GAS TOTAL HGB 11.3 G/DL (12.0-16.0); TEMP CORR TO 98.6
[2016-07-09 01:45] LABS: CRITICAL VALUE YES; OXYGEN DEVICE VENTILATOR
[2016-07-09 01:47] LABS: DRAW SITE RT RADIAL; FIO2 100 %; NUMBER OF ARTERIAL PUNCTURES 1; STAT NO; ULNAR PULSE PRESENT; VENT SETTINGS APRV/BIPHASIC
[2016-07-09] MEDS: INSULIN NovoLIN REGULAR SUPPLEMENTAL SCALE SQ SCH ×6 (02:00→21:00)
[2016-07-09] MEDS: SODIUM BICARBONATE 8.4% INJ 150 MEQ in DEXTROSE 5% IN WATE 1000ML INJ 1,000 ML IV SCH ×2 (02:27)
--- NOTE | 2016-07-09 02:58 | RADRPT ---
EXAM DATE/TIME: 07/09/2016 02:29 [facility] COMPARISON: CHEST SINGLE AP, July 08, 2016, 20:22. INDICATIONS : Respiratory disease. MEDICAL HISTORY : None. SURGICAL HISTORY : None. ENCOUNTER: Initial ACUITY: 1 day PAIN SCORE: 0/10 LOCATION: Bilateral chest FINDINGS: A single view of the chest demonstrates bilateral diffuse airspace disease with endotracheal tube and nasogastric both in good position. The cardiomediastinal contours are unremarkable. Osseous structu res are intact. CONCLUSION: Bilateral diffuse infiltrates left greater than right. Endotracheal tube is in good position Juan Alberto Raya MD on July 09, 2016 at 2:56 Board Certified Radiologist. This report was verified electronically.
[2016-07-09] MEDS: AZTREONAM INJ 1,000 MG in SODIUM CHLORIDE 0.9% INJ 100 ML IV SCH ×2 (03:50→14:10)
[2016-07-09] MEDS: CHLORHEXIDINE GLUCONATE 2 % 1 PACK (2 CLOTHS)(taper/protocol) TOPICAL SCH (03:50)
[2016-07-09] MEDS: RESP: ALBUTEROL 2.5 MG/IPRATROPIUM 0.5 MG NEB (SCH) NEB ×4 (04:01→21:31)
[2016-07-09 05:18] LABS: AUTOMATED NEUTROPHIL # 11.3 TH/MM3 (1.8-7.7); EOSINOPHIL % 0.2 % (0.0-4.0); HEMATOCRIT 32.9 % (35.0-46.0); LYMPH % 5.2 % (9.0-44.0); LYMPHOCYTE # 0.6 TH/MM3 (1.0-4.8); MEAN CELL VOLUME 91.6 FL (80.0-100.0); MEAN CORPUSCULAR HEMOGLOBIN 30.9 PG (27.0-34.0); MEAN CORPUSCULAR HGB CONC 33.7 % (32.0-36.0); MONO % 1.6 % (0.0-8.0); RED BLOOD COUNT 3.59 MIL/MM3 (4.00-5.30); RED CELL DISTRIBUTION WIDTH 16.6 % (11.6-17.2); WHITE BLOOD COUNT 12.2 TH/MM3 (4.0-11.0)
[2016-07-09 05:20] LABS: HEMO FLAGS AUTO DIFF
[2016-07-09 05:21] LABS: PLATELET COUNT 5 TH/MM3 (150-450)
[2016-07-09 05:29] LABS: INTERNATIONAL NORMALIZED RATIO 1.5 RATIO; PROTHROMBIN TIME - PATIENT 16.3 SEC (9.8-11.6)
[2016-07-09 06:04] LABS: BICARBONATE 26.6 MEQ/L (21.0-32.0); CALCIUM-PROTEIN CORRECTED 7.7 MG/DL (8.5-10.1); TOTAL BILIRUBIN ADULT 4.5 MG/DL (0.2-1.0)
[2016-07-09 06:58] LABS: BANDS 29 % (0-6); DOHLE BODIES PRESENT (NONE SEEN); MYELOCYTES 1 % (0-0); NEUTROPHIL # MANUAL DIFF 10.5 TH/MM3 (1.8-7.7); POLYS (SEG NEUTROPHILS) 56 % (16-70); TOXIC GRANULATION 1+ (NORMAL); WBC DIFF SAMPLE 100
[2016-07-09 06:59] LABS: PLATELET ESTIMATE SMEAR RARE (NORMAL); PLATELET MORPHOLOGY NORMAL (NORMAL); SCAN/DIFF FINAL DIFF MANUAL; TARGET CELLS 1+ (NORMAL)
[2016-07-09 07:00] LABS: STOMATOCYTES 1+ (NORMAL)
[2016-07-09] MEDS: PROPOFOL 1000 MG/100 ML INJ 100 ML IV SCH ×4 (08:34→23:18)
[2016-07-09] MEDS: FUROSEMIDE 40 MG/4 ML VIAL IV PUSH SCH ×2 (09:17→17:22)
[2016-07-09] MEDS: methylPREDNISolone SOD SUCC 40 MG/1 ML VIAL IV SCH ×2 (09:17→21:00)
[2016-07-09] MEDS: DILTIAZEM HCL 60 MG TAB PO SCH ×5 (09:17→21:00)
[2016-07-09] MEDS: MEROPENEM 1,000 MG/NS 100 ML IV SCH ×2 (10:35)
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
[2016-07-09] MEDS: DEXT 5%-NACL 0.9% 1000 ML INJ 1,000 ML IV SCH (10:58)
[2016-07-09] MEDS ORDERED: CALCIUM GLUCONATE INJ 1 GM in SODIUM CHLORIDE 0.9% INJ 100 ML IV ONE (11:00)
[2016-07-09] MEDS ORDERED: SODIUM CHLOR 0.9% 1000 ML INJ 1,000 ML IV PRN ×2 (11:18)
--- NOTE | 2016-07-09 11:18 | HHI.NPPN ---
Subjective General Problems: Anemia Renal Failure: Acute History of Present Illness 46-year-old female with a past medical history of morbid obesity, anxiety, history of urethral stenosis came to the hospital with back pain and dark urine. I was called to see the patient for elevated BUN and creatinine. The patient previously has creatinine of 0.4-0.5 this was in 2014. Additional Remarks Patient is now intubated and sedated. Review of Systems General Constitutional: Fatigue Cardiovascular Cardiac: Palpitations, LEA Objective Data Data 07/08/16 07/09/16 19:00 07:00 Intake Total 1128 ml 2305 ml Output Total 100 ml 100 ml Balance 1028 ml 2205 ml Intake Oral 120 ml 240 ml IV Total 1008 ml 2004 ml Tube Feeding 61 ml Output Urine Total 100 ml 100 ml # Bowel Movements 0 0 Vital Signs Date Time Temp Pulse Resp B/P Pulse Ox O2 Delivery O2 Flow Rate FiO2 07/09/16 10:45 50 07/09/16 10:00 110 07/09/16 08:42 97 50 07/09/16 08:30 100.0 113 18 139/63 96 07/09/16 08:00 114 07/09/16 08:00 50 07/09/16 08:00 100.0 114 12 136/65 96 07/09/16 07:00 96 Mechanical Ventilator 50 07/09/16 06:00 115 07/09/16 06:00 50 07/09/16 04:01 97 70 07/09/16 04:00 114 07/09/16 04:00 98.6 114 12 133/57 97 07/09/16 04:00 100 07/09/16 02:00 116 07/09/16 01:48 97 75 07/09/16 01:00 100 07/09/16 01:00 96 100 07/09/16 00:00 117 07/09/16 00:00 97.8 117 40 131/67 94 07/08/16 22:00 118 07/08/16 21:09 96 Non-Rebreather 07/08/16 20:00 121 07/08/16 20:00 118 07/08/16 20:00 98.5 121 41 124/65 88 07/08/16 19:00 93 Non-Rebreather 15.00 07/08/16 18:05 94 Non-Rebreather 15.00 07/08/16 18:00 122 07/08/16 16:48 90 Nasal Cannula 6.00 07/08/16 16:00 124 07/08/16 16:00 98.8 124 24 145/66 90 07/08/16 14:00 121 07/08/16 12:00 98.3 121 22 155/71 92 07/08/16 12:00 121 -: 07/09/16 0446 07/09/16 0446 Microbiology 07/09/16 Legionella Antigen - Final, Complete PRESUMPTIVE NEGATIVE FOR LEGIONELLA P... 07/09/16 Streptococcus pneumoniae Antigen (M - Final, Complete PRESUMPTIVE NEGATIVE FOR STREPTOCOCCU... Physical Exam General Appearance Remarks Intubated and sedated. Eyes Eye Exam: Pupils Equal Neck Neck Exam: Neck Supple Pulmonary Resp Exam: Breath Sounds Equal, No Distress, Rhonchi, Decreased Bases Cardiology CV Exam: Tachycardia Gastrointestinal/Abdomen GI Exam: Soft, Non-Tender, Bowel Sounds Present Extremeties Extremities Exam: Trace Edema Neurologic Neuro Exam: Sedated Assessment/Plan Assessment Summary: MICHAEL/Acute Renal Failure Problem List: (1) Sinus tachycardia (2) Thrombocytopenia (3) Hyponatremia (4) UTI (lower urinary tract infection) (5) Bandemia (6) Elevated LFTs (7) Lactic acidosis (8) Sepsis (9) Acute kidney injury Plan Patient has low urine out put. BUN and Creatinine increased. HR still elevated, BP is stable. Peripheral smear results noted. Most likely has MICHAEL related to sepsis. MELCHOR and ANCA pending. BC growing E.Coli ID following. Now platelets decrease to 5, got transfusion. Will need to start HD. To get Vascath by Fernie Blue MD Jul 09, 2016 11:18
[2016-07-09] MEDS ORDERED: ONDANSETRON HCL 4 MG/2 ML VIAL IV PRN (11:30)
[2016-07-09] MEDS ORDERED: ALBUMIN HUMAN 25% 25 GM/100 ML BAGP IV PRN (11:30)
[2016-07-09] MEDS ORDERED: diphenhydrAMINE HCL 25 MG CAP PO PRN (11:30)
[2016-07-09] MEDS ORDERED: ACETAMINOPHEN 325 MG TAB PO PRN (11:30)
[2016-07-09] MEDS ORDERED: GELATIN 12 MM/7 MM FOAM TOP PRN (11:30)
[2016-07-09] MEDS ORDERED: NITROGLYCERIN 0.4 MG SL 25 TABS/BTL SL PRN (11:30)
[2016-07-09] MEDS ORDERED: cloNIDine HCL 0.1 MG TAB PO PRN (11:30)
[2016-07-09] MEDS ORDERED: MANNITOL 12.5 GM/50 ML VIAL IV PRN (11:30)
[2016-07-09 12:00] LABS: APTT (PATIENT) 31.3 SEC (24.3-30.1)
[2016-07-09 12:08] LABS: BLOOD GAS BASE EXCESS 1.3 mmol/L (-2-2); BLOOD GAS CARBOXYHEMOGLOBIN 0.2 % (0-4); BLOOD GAS HCO3 25 mmol/L (22-26); BLOOD GAS METHEMOGLOBIN 3.7 % (0-2); BLOOD GAS O2 HGB SATURATION 88 % (90-100); BLOOD GAS OXYGEN CONTENT 12.7 Vol % (12.0-20.0); BLOOD GAS PCO2 39 mmHg (38-42); BLOOD GAS PO2 73 mmHg (61-120); BLOOD GAS TOTAL HGB 10.2 G/DL (12.0-16.0); CRITICAL VALUE YES; OXYGEN DEVICE VENTILATOR; TEMP CORR TO 98.6
[2016-07-09 12:09] LABS: DRAW SITE RT RADIAL; FIO2 50 %; NUMBER OF ARTERIAL PUNCTURES 1; VENT SETTINGS VT 450/14/5PEEP
[2016-07-09 12:10] LABS: STAT NO; ULNAR PULSE PRESENT
--- NOTE | 2016-07-09 13:46 | PD.ONC.PN ---
Subjective Subjective Remarks Tmax 100F overnight. Patient intubated last night. No reported bleeding. Objective Data Date Time Temp Pulse Resp B/P Pulse Ox O2 Delivery O2 Flow Rate FiO2 07/09/16 10:45 50 07/09/16 10:00 110 07/09/16 08:42 97 50 07/09/16 08:30 100.0 113 18 139/63 96 07/09/16 08:00 114 07/09/16 08:00 50 07/09/16 08:00 100.0 114 12 136/65 96 07/09/16 07:00 96 Mechanical Ventilator 50 07/09/16 06:00 115 07/09/16 06:00 50 07/09/16 04:01 97 70 07/09/16 04:00 114 07/09/16 04:00 98.6 114 12 133/57 97 07/09/16 04:00 100 07/09/16 02:00 116 07/09/16 01:48 97 75 07/09/16 01:00 100 07/09/16 01:00 96 100 07/09/16 00:00 117 07/09/16 00:00 97.8 117 40 131/67 94 07/08/16 22:00 118 07/08/16 21:09 96 Non-Rebreather 07/08/16 20:00 121 07/08/16 20:00 118 07/08/16 20:00 98.5 121 41 124/65 88 07/08/16 19:00 93 Non-Rebreather 15.00 07/08/16 18:05 94 Non-Rebreather 15.00 07/08/16 18:00 122 07/08/16 16:48 90 Nasal Cannula 6.00 07/08/16 16:00 124 07/08/16 16:00 98.8 124 24 145/66 90 07/08/16 14:00 121 07/09/16 07/09/16 07/09/16 07:00 15:00 23:00 Intake Total 1214 ml Output Total 50 ml Balance 1164 ml Result Diagram: 07/09/16 0446 07/09/16 0446 Laboratory Results Laboratory Tests Test 07/08/16 07/09/16 07/09/16 07/09/16 20:14 01:32 04:46 07:45 Blood Gas Puncture Site RT RADIAL RT RADIAL Blood Gas Patient Temperature 98.6 98.6 Blood Gas HCO3 23 mmol/L 23 mmol/L Blood Gas Base Excess -0.7 mmol/L -1.1 mmol/L Blood Gas Oxygen Saturation 89 % 93 % Arterial Blood pH 7.46 7.38 Arterial Blood Partial 33 mmHg 40 mmHg Pressure CO2 Arterial Blood Partial 79 mmHg 283 mmHg Pressure O2 Arterial Blood Oxygen Content 14.0 Vol % 15.5 Vol % Arterial Blood 0.5 % 0.1 % Carboxyhemoglobin Arterial Blood Methemoglobin 3.7 % 3.8 % Blood Gas Hemoglobin 11.1 G/DL 11.3 G/DL Oxygen Delivery Device Non-Rebreathing VENTILATOR Mask Blood Gas Inspired Oxygen 100 % 100 % Blood Gas Ventilator Setting APRV/BIPHASIC White Blood Count 12.2 TH/MM3 Red Blood Count 3.59 MIL/MM3 Hemoglobin 11.1 GM/DL Hematocrit 32.9 % Mean Corpuscular Volume 91.6 FL Mean Corpuscular Hemoglobin 30.9 PG Mean Corpuscular Hemoglobin 33.7 % Concent Red Cell Distribution Width 16.6 % Platelet Count 5 TH/MM3 Mean Platelet Volume 10.3 FL Neutrophils (%) (Auto) 93.0 % Lymphocytes (%) (Auto) 5.2 % Monocytes (%) (Auto) 1.6 % Eosinophils (%) (Auto) 0.2 % Basophils (%) (Auto) 0.0 % Neutrophils # (Auto) 11.3 TH/MM3 Lymphocytes # (Auto) 0.6 TH/MM3 Monocytes # (Auto) 0.2 TH/MM3 Eosinophils # (Auto) 0.0 TH/MM3 Basophils # (Auto) 0.0 TH/MM3 CBC Comment AUTO DIFF Differential Total Cells 100 Counted Neutrophils % (Manual) 56 % Band Neutrophils % 29 % Lymphocytes % 8 % Monocytes % 6 % Neutrophils # (Manual) 10.5 TH/MM3 Myelocytes 1 % Differential Comment FINAL DIFF MANUAL Toxic Granulation 1+ Dohle Bodies PRESENT Platelet Estimate RARE Platelet Morphology Comment NORMAL Target Cells 1+ Stomatocytes 1+ Prothrombin Time 16.3 SEC Prothromb Time International 1.5 RATIO Ratio Sodium Level 124 MEQ/L Potassium Level 5.0 MEQ/L Chloride Level 84 MEQ/L Carbon Dioxide Level 26.6 MEQ/L Anion Gap 13 MEQ/L Blood Urea Nitrogen 68 MG/DL Creatinine 5.79 MG/DL Estimat Glomerular Filtration 8 ML/MIN Rate Random Glucose 93 MG/DL Calcium Level 6.6 MG/DL Protein Corrected Calcium 7.7 MG/DL Total Bilirubin 4.5 MG/DL Aspartate Amino Transf 83 U/L (AST/SGOT) Alanine Aminotransferase 118 U/L (ALT/SGPT) Alkaline Phosphatase 146 U/L Total Protein 5.0 GM/DL Albumin 1.6 GM/DL Blood Bank Comment Test 07/09/16 07/09/16 11:15 12:00 Activated Partial 31.3 SEC Thromboplast Time Fibrinogen 443 mg/dL Blood Gas Puncture Site RT RADIAL Blood Gas Patient Temperature 98.6 Blood Gas HCO3 25 mmol/L Blood Gas Base Excess 1.3 mmol/L Blood Gas Oxygen Saturation 88 % Arterial Blood pH 7.43 Arterial Blood Partial 39 mmHg Pressure CO2 Arterial Blood Partial 73 mmHg Pressure O2 Arterial Blood Oxygen Content 12.7 Vol % Arterial Blood 0.2 % Carboxyhemoglobin Arterial Blood Methemoglobin 3.7 % Blood Gas Hemoglobin 10.2 G/DL Oxygen Delivery Device VENTILATOR Blood Gas Ventilator Setting VT 450/14/5PEEP Blood Gas Inspired Oxygen 50 % Culture Results Microbiology Date/Time Procedure Status Source Growth 07/07/16 11:00 Urine Culture - Final Complete Urine Clean Catch Escherichia Coli 07/07/16 12:45 Aerobic Blood Culture - Preliminary Resulted Blood Peripheral Escherichia Coli 07/07/16 12:45 Anaerobic Blood Culture - Final Resulted Escherichia Coli 07/07/16 12:53 Aerobic Blood Culture - Final Complete Blood Peripheral Escherichia Coli 07/07/16 12:53 Anaerobic Blood Culture - Final Complete Escherichia Coli 07/09/16 02:50 Legionella Antigen - Final Complete Urine Catheterized Urine PRESUMPTIVE NEGATIVE FOR LEGIONELLA P... 07/09/16 02:50 Streptococcus pneumoniae Antigen (M - Final Complete Urine Catheterized Urine PRESUMPTIVE NEGATIVE FOR STREPTOCOCCU... Imaging Studies Last 24 hours Impressions Chest X-Ray 07/09/16 0000 Signed Impressions: Service Date/Time: Saturday, July 09, 2016 02:29 - CONCLUSION: Bilateral diffuse infiltrates left greater than right. Endotracheal tube is in good position Juan Alberto Raya MD Administered Medications Medications (Trade) Dose Ordered Sig/Dulce Route PRN Reason Start Time Stop Time Status Last Admin Dose Admin Morphine Sulfate (Morphine Inj) 2 mg Q3H PRN IV PUSH pain level 3-10 07/06/16 21:15 07/08/16 01:54 Lorazepam 1 mg 1 mg Q6H PRN IV PUSH anxiety 07/06/16 21:15 07/06/16 21:44 Aztreonam/Sodium Chloride (Azactam Inj/NS Inj) 100 ml @ 200 mls/hr Q12H IV 07/07/16 15:00 07/09/16 03:50 Chlorhexidine Gluconate (Chlorhexidine 2% Cloth) 3 pack DAILY@04 TOPICAL 07/08/16 04:00 07/12/16 04:01 07/09/16 03:50 Dextrose (D50w (Vial) Inj) 25 ml UNSCH PRN IV PUSH HYPOGLYCEMIA-SEE COMMENTS 07/08/16 04:00 07/08/16 09:35 Diltiazem HCl (Cardizem) 60 mg QID PO 07/08/16 10:00 07/09/16 09:17 Furosemide (Lasix Inj) 40 mg Q8H IV PUSH 07/08/16 18:00 07/09/16 09:17 Methylprednisolone Sodium Succinate 40 mg 40 mg Q12H IV 07/08/16 21:00 07/09/16 09:17 Propofol 100 ml @ 0 mls/hr TITRATE IV 07/09/16 04:45 07/09/16 12:53 Dextrose/Sodium Chloride (D5W-NS 1000 ml Inj) 1,000 ml @ 75 mls/hr [id number] IV 07/09/16 10:00 07/09/16 10:58 Objective Remarks GENERAL: Intubated, sedated female supine in bed. SKIN: Warm and dry. HEAD: Normocephalic. EYES: No injection or drainage. NECK: Supple, trachea midline. CARDIOVASCULAR: Regular rate and rhythm RESPIRATORY: Breath sounds equal bilaterally. No accessory muscle use. GASTROINTESTINAL: Abdomen soft nondistended. EXTREMITIES: No cyanosis NEUROLOGICAL: sedated. Assessment/Plan Problem List: (1) Thrombocytopenia Status: Acute Plan: 07/09: monitor and transfuse as needed. expect platelets to improve as sepsis improves. agree with platelet transfusion this morning 07/08: coags remain prolonged. thrombocytopenia likely d/t consumption with sepsis. will order u/s LE to r/o DVT. expect thrombocytopenia to resolve as sepsis resolves. --most likely due to sepsis syndrome. --other differential is TTP versus HUS versus ITP versus HIT. --peripheral blood smear reviewed with pathologist-->Significant numbers of red cell fragment schistocytes are NOT present and the microangiopathic hemolytic process is not favored. L --LDH is high at 666 which I believe is due to liver injury and not from the hemolysis. Therefore, I do not think that we are dealing with either TTP or HUS. --if platelet count drops to less than 10, recommend transfusion of platelets --LE U/S shows no DVT Assessment 46y/o female with acute thrombocytopenia. h/o Morbid obesity, s/p gastric bypass Anxiety Ureteral stenosis Attending Statement now on vent. plat 5K, tx plat today. monitor fibrinogen and transfuse cryo if <100. pt has E.coli urosepsis. ID is managing A/B. Dawna López Jul 09, 2016 13:45 Kalpana Logan MD Jul 09, 2016 22:45
[2016-07-09] MEDS: LEVOFLOXACIN 500 MG PREMIX INJ 100 ML IV SCH (16:26)
--- NOTE | 2016-07-09 16:37 | PD.RAD ---
Post Procedure Progress Note Pre Procedure Diagnosis: (1) Sepsis (2) Lactic acidosis (3) Renal insufficiency Post Procedure Diagnosis: (1) Sepsis (2) Lactic acidosis (3) Renal insufficiency Procedure Date: Jul 09, 2016 Supervising Radiologist: Hoang Kirk Proceduralist/Assist: Iris Cameron RT(R), RT Ashleigh(R)() Anesthesia: Local Plan of Activity Patient to Unit: Critical Care Patient Condition: Poor See PACS Report for procedural detail/treatment Central Venous Access Device Procedure 1 Right Subclavian Central Line Placement triple lumen Romanian: 7 PICC Line Length (cm): 20 Procedure 2 Right Internal Jugular Hemodialysis Catheter Non-Tunneled Placement dual lumen Romanian: 14 Length (cm): 15 Hoang Kirk MD Jul 09, 2016 16:37
[2016-07-09] MEDS ORDERED: HEPARIN SODIUM - IV 2,000 UNITS/2 ML VIAL IV FLUSH PRN (16:45)
[2016-07-09] MEDS ORDERED: SODIUM CHLORIDE 0.9% FLUSH 10 ML FLUSH IVF PRN (16:45)
--- NOTE | 2016-07-09 16:50 | HHI.IDPN ---
Subjective Subjective Remarks events noted now intubated Anuric + low grade fevers Mom, sster @ b/s Pt had rash to PCN in childhood, took Keflex in the past in her 30-ies - uneventfully: per mom Antibiotics azactam meropenem Allergies: Coded Allergies: Ibuprofen (Unverified Allergy, Severe, S/P GASTRIC BYPASS, 07/06/16) Penicillin (Verified Allergy, Severe, 07/06/16) Toradol (Unverified Allergy, Severe, S/P GASTRIC BYPASS, 07/06/16) Objective . Vital Signs Date Time Temp Pulse Resp B/P Pulse Ox O2 Delivery O2 Flow Rate FiO2 07/09/16 12:00 50 07/09/16 10:45 50 07/09/16 10:00 110 07/09/16 08:42 97 50 07/09/16 08:30 100.0 113 18 139/63 96 07/09/16 08:00 114 07/09/16 08:00 50 07/09/16 08:00 100.0 114 12 136/65 96 07/09/16 07:00 96 Mechanical Ventilator 50 07/09/16 06:00 115 07/09/16 06:00 50 07/09/16 04:01 97 70 07/09/16 04:00 114 07/09/16 04:00 98.6 114 12 133/57 97 07/09/16 04:00 100 07/09/16 02:00 116 07/09/16 01:48 97 75 07/09/16 01:00 100 07/09/16 01:00 96 100 07/09/16 00:00 117 07/09/16 00:00 97.8 117 40 131/67 94 07/08/16 22:00 118 07/08/16 21:09 96 Non-Rebreather 07/08/16 20:00 121 07/08/16 20:00 118 07/08/16 20:00 98.5 121 41 124/65 88 07/08/16 19:00 93 Non-Rebreather 15.00 07/08/16 18:05 94 Non-Rebreather 15.00 07/08/16 18:00 122 07/08/16 16:48 90 Nasal Cannula 6.00 07/08/16 07/08/16 07/09/16 15:00 23:00 07:00 Intake Total 1128 ml 1091 ml 1214 ml Output Total 100 ml 50 ml 50 ml Balance 1028 ml 1041 ml 1164 ml Intake Oral 120 ml 240 ml 0 ml IV Total 1008 ml 851 ml 1153 ml Tube Feeding 61 ml Output Urine Total 100 ml 50 ml 50 ml # Bowel Movements 0 0 0 . Laboratory Tests Test 07/07/16 07/07/16 07/08/16 07/09/16 17:35 19:40 04:43 04:46 Haptoglobin 182 MG/DL White Blood Count 8.8 TH/MM3 6.9 TH/MM3 12.2 TH/MM3 Red Blood Count 3.60 MIL/MM3 3.32 MIL/MM3 3.59 MIL/MM3 Hemoglobin 11.3 GM/DL 10.6 GM/DL 11.1 GM/DL Hematocrit 33.3 % 30.6 % 32.9 % Mean Corpuscular Volume 92.4 FL 92.0 FL 91.6 FL Mean Corpuscular Hemoglobin 31.5 PG 31.9 PG 30.9 PG Mean Corpuscular Hemoglobin 34.1 % 34.7 % 33.7 % Concent Red Cell Distribution Width 17.3 % 17.1 % 16.6 % Platelet Count 9 TH/MM3 33 TH/MM3 5 TH/MM3 Mean Platelet Volume 9.2 FL 8.3 FL 10.3 FL Neutrophils (%) (Auto) 84.2 % % 93.0 % Lymphocytes (%) (Auto) 7.2 % % 5.2 % Monocytes (%) (Auto) 6.3 % % 1.6 % Eosinophils (%) (Auto) 2.2 % % 0.2 % Basophils (%) (Auto) 0.1 % % 0.0 % Neutrophils # (Auto) 7.4 TH/MM3 TH/MM3 11.3 TH/MM3 Lymphocytes # (Auto) 0.6 TH/MM3 TH/MM3 0.6 TH/MM3 Monocytes # (Auto) 0.6 TH/MM3 TH/MM3 0.2 TH/MM3 Eosinophils # (Auto) 0.2 TH/MM3 TH/MM3 0.0 TH/MM3 Basophils # (Auto) 0.0 TH/MM3 TH/MM3 0.0 TH/MM3 CBC Comment AUTO DIFF AUTO DIFF AUTO DIFF Differential Total Cells 100 100 100 Counted Neutrophils % (Manual) 58 % 45 % 56 % Band Neutrophils % 28 % 49 % 29 % Lymphocytes % 7 % 5 % 8 % Monocytes % 2 % 6 % Neutrophils # (Manual) 8.0 TH/MM3 6.6 TH/MM3 10.5 TH/MM3 Metamyelocytes 4 % 1 % Myelocytes 1 % 1 % Differential Comment FINAL DIFF FINAL DIFF FINAL DIFF MANUAL MANUAL MANUAL Toxic Granulation 1+ 1+ Dohle Bodies PRESENT PRESENT PRESENT Platelet Estimate LOW LOW RARE Platelet Morphology Comment ENLARGED NORMAL NORMAL Red Cell Morphology Comment NORMAL NORMAL Toxic Vacuolation PRESENT Target Cells 1+ Stomatocytes 1+ Test 07/09/16 13:25 Platelet Count 33 TH/MM3 Laboratory Tests Test 07/07/16 07/07/16 07/08/16 07/08/16 17:35 19:40 04:43 11:20 Phosphorus Level 5.2 MG/DL 3.9 MG/DL Total Bilirubin 1.9 MG/DL 2.5 MG/DL Direct Bilirubin 1.3 MG/DL Indirect Bilirubin 0.6 MG/DL Aspartate Amino Transf 100 U/L 111 U/L (AST/SGOT) Alanine Aminotransferase 188 U/L 160 U/L (ALT/SGPT) Alkaline Phosphatase 135 U/L 131 U/L Lactate Dehydrogenase 666 U/L Total Protein 5.1 GM/DL 5.0 GM/DL Albumin 1.8 GM/DL 1.7 GM/DL Lactic Acid Level 2.6 mmol/L 3.3 mmol/L 3.1 mmol/L Sodium Level 124 MEQ/L Potassium Level 4.4 MEQ/L Chloride Level 90 MEQ/L Carbon Dioxide Level 18.1 MEQ/L Anion Gap 16 MEQ/L Blood Urea Nitrogen 60 MG/DL Creatinine 5.18 MG/DL Estimat Glomerular Filtration 9 ML/MIN Rate Random Glucose 144 MG/DL Calcium Level 6.2 MG/DL Protein Corrected Calcium 7.2 MG/DL Magnesium Level 1.4 MG/DL Iron Level 28 MCG/DL Total Iron Binding Capacity 183 MCG/DL Percent Iron Saturation 15.3 % Ferritin 222 NG/ML Vitamin B12 Level GREATER THAN 2000 PG/ML Test 07/09/16 04:46 Sodium Level 124 MEQ/L Potassium Level 5.0 MEQ/L Chloride Level 84 MEQ/L Carbon Dioxide Level 26.6 MEQ/L Anion Gap 13 MEQ/L Blood Urea Nitrogen 68 MG/DL Creatinine 5.79 MG/DL Estimat Glomerular Filtration 8 ML/MIN Rate Random Glucose 93 MG/DL Calcium Level 6.6 MG/DL Protein Corrected Calcium 7.7 MG/DL Total Bilirubin 4.5 MG/DL Aspartate Amino Transf 83 U/L (AST/SGOT) Alanine Aminotransferase 118 U/L (ALT/SGPT) Alkaline Phosphatase 146 U/L Total Protein 5.0 GM/DL Albumin 1.6 GM/DL Microbiology Date/Time Procedure Status Source Growth 07/07/16 11:00 Urine Culture - Final Complete Urine Clean Catch Escherichia Coli 07/07/16 12:45 Aerobic Blood Culture - Preliminary Resulted Blood Peripheral Escherichia Coli 07/07/16 12:45 Anaerobic Blood Culture - Final Resulted Escherichia Coli 07/07/16 12:53 Aerobic Blood Culture - Final Complete Blood Peripheral Escherichia Coli 07/07/16 12:53 Anaerobic Blood Culture - Final Complete Escherichia Coli 07/09/16 02:50 Legionella Antigen - Final Complete Urine Catheterized Urine PRESUMPTIVE NEGATIVE FOR LEGIONELLA P... 07/09/16 02:50 Streptococcus pneumoniae Antigen (M - Final Complete Urine Catheterized Urine PRESUMPTIVE NEGATIVE FOR STREPTOCOCCU... Imaging Last Impressions Chest X-Ray 07/09/16 0000 Signed Impressions: Service Date/Time: Saturday, July 09, 2016 02:29 - CONCLUSION: Bilateral diffuse infiltrates left greater than right. Endotracheal tube is in good position Juan Alberto Raya MD Lower Extremity Ultrasound 07/08/16 0000 Signed Impressions: Service Date/Time: Friday, July 08, 2016 18:43 - CONCLUSION: Normal examination. Iban Mann MD Head CT 07/07/16 0000 Signed Impressions: Service Date/Time: Thursday, July 07, 2016 14:39 - CONCLUSION: No acute disease. Scotty Shaw MD Abdomen/Pelvis CT 07/07/16 0000 Signed Impressions: Service Date/Time: Thursday, July 07, 2016 14:42 - CONCLUSION: Status post gastric bypass with what may be a fluid-filled gastric remnant. This may be chronic however a blind loop syndrome should be excluded. Enlarged kidneys with diffuse cortical thickening; evaluate for possible bilateral pyelonephritis. Intestinal ileus without evidence of mechanical obstruction. Ischemic bowel should be excluded. Cholelithiasis without evidence of gallbladder inflammation. Developing anasarca Scotty Shaw MD Renal Ultrasound 07/06/16 0000 Signed Impressions: Service Date/Time: Wednesday, July 06, 2016 22:23 - CONCLUSION: Normal examination. Juan Alberto Raya MD Physical Exam CONSTITUTIONAL/GENERAL: This is an adequately nourished patient, in no apparent distress. TUBES/LINES/DRAINS: SKIN: No jaundice, rashes, or lesions. Ecchymoses on upper extremities. No wounds seen anteriorly. Skin temperature appropriate. Not diaphoretic. HEAD: Atraumatic. Normocephalic. EYES: Pupils equal and round and reactive. Extraocular motions intact. Minimal scleral icterus. No injection or drainage. Fundi not examined. ENT: Hearing grossly normal. Nose without bleeding or purulent drainage. Dry mucosae . NECK: Trachea midline. Supple, nontender. No palpable thyroid enlargement or nodularity. CARDIOVASCULAR: Regular rate and rhythm without murmurs, gallops, or rubs. No JVD. Peripheral pulses symmetric. RESPIRATORY/CHEST: Symmetric, unlabored respirations. Clear to auscultation. Breath sounds equal bilaterally. No wheezes, rales, or rhonchi. GASTROINTESTINAL: Abdomen soft, non-tender, nondistended. No hepato-splenomegaly , or palpable masses. No guarding. Bowel sounds present. GENITOURINARY: Without palpable bladder distension. Quesada catheter in place with small amount of cloudy bloody urine + CVA tenderness on the R MUSCULOSKELETAL: Extremities without clubbing, cyanosis, or edema. No joint tenderness or effusion noted. No calf tenderness. No mottling or clubbing. LYMPHATICS: No palpable cervical or supraclavicular adenopathy. NEUROLOGICAL: Awake and alert. Motor and sensory grossly within normal limits. Follows commands. Normal speech, confused; oriented x 2 only Moves all extremities. PSYCHIATRIC: calm, cooperative Assessment & Plan Remarks Sepsis, E.coli 2/2 UTI 2/2 E.coli ARF 2/2 sepsis - HD is planned VDRF probably 2/2 ARDS in sepsis settings DIC trombocytoepna, severe leukocytos Bandemia Toleartaed Keflex in the past uneventfully - dc azacrtam - dc meropenem - levaquine - CFTX - FU P blood clx dw family @ b/s Tiffany Lang MD Jul 09, 2016 16:49
[2016-07-09] MEDS: cefTRIAXone INJ 1,000 MG in SODIUM CHLORIDE 0.9% INJ 100 ML IV SCH (17:22)
[2016-07-09] MEDS: GENTAMICIN SULFATE (DIALYSIS USE ONLY) 20 MG/2 ML VIAL IV PRN (19:24)
[2016-07-09] MEDS: HEPARIN SODIUM - IV 10,000 UNITS/10 ML VIAL PRN (19:24)
[2016-07-10] VITALS (18 sets, daily range): BP systolic 107–161; BP diastolic 57–84; PULSE 97–106; RESP 22–27; TEMP 97.6–99.6; O2SAT 93–96
[2016-07-10] MEDS: DEXT 5%-NACL 0.9% 1000 ML INJ 1,000 ML IV SCH (01:08)
[2016-07-10] MEDS: INSULIN NovoLIN REGULAR SUPPLEMENTAL SCALE SQ SCH ×6 (02:00→22:00)
[2016-07-10] MEDS: FUROSEMIDE 40 MG/4 ML VIAL IV PUSH SCH ×3 (02:36→17:18)
[2016-07-10] MEDS: PROPOFOL 1000 MG/100 ML INJ 100 ML IV SCH ×4 (02:37→20:43)
[2016-07-10] MEDS: RESP: ALBUTEROL 2.5 MG/IPRATROPIUM 0.5 MG NEB (SCH) NEB ×4 (03:25→19:34)
[2016-07-10] MEDS: CHLORHEXIDINE GLUCONATE 2 % 1 PACK (2 CLOTHS)(taper/protocol) TOPICAL SCH (04:00)
[2016-07-10 05:44] LABS: AUTOMATED NEUTROPHIL # 19.3 TH/MM3 (1.8-7.7); BASOPHIL % 0.1 % (0.0-2.0); EOSINOPHIL % 0.1 % (0.0-4.0); HEMATOCRIT 26.7 % (35.0-46.0); LYMPH % 2.3 % (9.0-44.0); LYMPHOCYTE # 0.5 TH/MM3 (1.0-4.8); MEAN CELL VOLUME 91.4 FL (80.0-100.0); MEAN CORPUSCULAR HGB CONC 33.9 % (32.0-36.0); MONO % 0.9 % (0.0-8.0); NEUT % 96.6 % (16.0-70.0); RED BLOOD COUNT 2.92 MIL/MM3 (4.00-5.30); RED CELL DISTRIBUTION WIDTH 16.4 % (11.6-17.2)
[2016-07-10 05:50] LABS: INTERNATIONAL NORMALIZED RATIO 1.2 RATIO; PROTHROMBIN TIME - PATIENT 13.6 SEC (9.8-11.6)
[2016-07-10 05:55] LABS: ALKALINE PHOSPHATASE 174 U/L (45-117); ALT (GPT) 80 U/L (10-53); ANION GAP 9 MEQ/L (5-15); AST (GOT) 80 U/L (15-37); BICARBONATE 30.7 MEQ/L (21.0-32.0); BLOOD UREA NITROGEN 51 MG/DL (7-18); CHLORIDE 94 MEQ/L (98-107); GLOMERULAR FILTRATION RATE 11 ML/MIN (>89); POTASSIUM 4.1 MEQ/L (3.5-5.1); SODIUM (NA) 134 MEQ/L (136-145); TOTAL BILIRUBIN ADULT 5.2 MG/DL (0.2-1.0)
[2016-07-10 05:56] LABS: HEMO FLAGS AUTO DIFF
[2016-07-10 05:57] LABS: PLATELET COUNT 14 TH/MM3 (150-450)
[2016-07-10 07:00] LABS: BANDS 20 % (0-6); METAMYELOCYTES 1 % (0-1); NEUTROPHIL # MANUAL DIFF 18.8 TH/MM3 (1.8-7.7); POLYS (SEG NEUTROPHILS) 73 % (16-70); WBC DIFF SAMPLE 100
[2016-07-10 07:01] LABS: PLATELET ESTIMATE SMEAR LOW (NORMAL); PLATELET MORPHOLOGY NORMAL (NORMAL); TARGET CELLS 1+ (NORMAL)
[2016-07-10 07:02] LABS: SCAN/DIFF FINAL DIFF MANUAL
[2016-07-10] MEDS: methylPREDNISolone SOD SUCC 40 MG/1 ML VIAL IV SCH ×2 (08:18→20:43)
[2016-07-10] MEDS: SODIUM CHLORIDE 0.9% FLUSH 10 ML FLUSH IVF SCH (08:19)
[2016-07-10] MEDS: SODIUM CHLORIDE 0.9% FLUSH 10 ML FLUSH IVF PRN (08:19)
[2016-07-10] MEDS: DILTIAZEM HCL 60 MG TAB PO SCH ×4 (09:00→20:43)
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
--- NOTE | 2016-07-10 11:01 | RADRPT ---
EXAM DATE/TIME: 07/09/2016 15:12 [facility] COMPARISON: No previous studies available for comparison. INDICATIONS : Patient with sepsis in need of central line for access. MEDICAL HISTORY : Acute renal failure Sinus tachycardia Thrombocytopenia Hyponatremia Bandemia Sepsis Lactic acidosis Urethrostenosis History of obesity Anxiety SURGICAL HISTORY : Urethral dilatation approximately 10 years ago Gastric bypass in 2000 Tonsillectomy Adenoidectomy ENCOUNTER: Initial ACUITY: 2 days PAIN SCORE: Nonresponsive. FLUORO TIME: 0.80 minutes IMAGE SERIES: 0 ACCESS: Right subclavian vein DEVICE(S): 1.) 7 Khmer triple lumen 20 cm ABX coated catheter PROCEDURE : 1. Ultrasound guided venipuncture. 2. Fluoroscopic guidance. 3. Central line placement. The risks, benefits and alternatives to the procedure were explained and verbal and written consent w as obtained. The site was prepped in sterile fashion. Full sterile technique was used, including ca p, mask, sterile gloves and gown and a large sterile sheet. Hand hygiene and 2% chlorhexidine prep w as utilized per protocol for cutaneous antisepsis with appropriate dry time for site. The skin and subcutaneous tissues were infiltrated with local anesthetic solution. A suitable site a rosa m the vein was selected with ultrasound and fluoroscopic guidance. A small incision was made. Th e vein was accessed under direct ultrasound visualization using the micropuncture technique. The shena ropuncture set was exchanged for a 0.035 wire. The tract was dilated. The catheter was advanced int o position under direct fluoroscopic visualization. The catheter was fixed in place with suture and a sterile dressing was applied. The patient tolerated the procedure well and there were no complications. CONCLUSION: Uncomplicated line placement as above. Procedure was done in conjunction with a [facility] IJ Vas-Cath placement. Hoang Kirk MD on July 10, 2016 at 10:59 Board Certified Radiologist. This report was verified electronically.
--- NOTE | 2016-07-10 11:02 | RADRPT ---
EXAM DATE/TIME: 07/09/2016 15:34 [facility] COMPARISON: No previous studies available for comparison. INDICATIONS : Patient with renal failure in need of temporary dialysis catheter placement. MEDICAL HISTORY : Acute renal failure Sinus tachycardia Thrombocytopenia Hyponatremia Bandemia Sepsis Lactic acidosis Urethrostenosis History of obesity Anxiety SURGICAL HISTORY : Urethral dilatation approximately 10 years ago Gastric bypass in 2000 Tonsillectomy Adenoidectomy ENCOUNTER: Initial ACUITY: 2 days PAIN SCORE: Nonresponsive. FLUORO TIME: 0.80 minutes IMAGE SERIES: 0 ACCESS: Right internal jugular vein DEVICE(S): 1.) 14 Tajik dual lumen 15 cm Schon catheter PROCEDURE : 1. Ultrasound guided venipuncture. 2. Fluoroscopic guidance. 3. Central line placement. The risks, benefits and alternatives to the procedure were explained and verbal and written consent w as obtained. The site was prepped in sterile fashion. Full sterile technique was used, including ca p, mask, sterile gloves and gown and a large sterile sheet. Hand hygiene and 2% chlorhexidine prep w as utilized per protocol for cutaneous antisepsis with appropriate dry time for site. The skin and subcutaneous tissues were infiltrated with local anesthetic solution. A suitable site a rosa m the vein was selected with ultrasound and fluoroscopic guidance. A small incision was made. Th e vein was accessed under direct ultrasound visualization using the micropuncture technique. The shena ropuncture set was exchanged for a 0.035 wire. The tract was dilated. The catheter was advanced int o position under direct fluoroscopic visualization. The catheter was fixed in place with suture and a sterile dressing was applied. The patient tolerated the procedure well and there were no complications. CONCLUSION: Uncomplicated line placement as above. The procedure was done in conjunction with a right subclavian central venous catheter placement Hoang Kirk MD on July 10, 2016 at 10:59 Board Certified Radiologist. This report was verified electronically.
[2016-07-10] MEDS: GENTAMICIN SULFATE (DIALYSIS USE ONLY) 20 MG/2 ML VIAL IV PRN (13:15)
[2016-07-10] MEDS: HEPARIN SODIUM - IV 10,000 UNITS/10 ML VIAL PRN (13:15)
[2016-07-10] MEDS: SODIUM CHLOR 0.9% 1000 ML INJ 1,000 ML IV PRN (13:15)
[2016-07-10 13:51] LABS: MYELOPEROXIDASE LESS THAN 1.0 AI (<1.0); PROTEINASE-3 LESS THAN 1.0 AI (<1.0)
--- NOTE | 2016-07-10 14:00 | PD.ONC.PN ---
Subjective Subjective Remarks Afebrile overnight. Remains on mechanical ventilation. No family members at bedside. Objective Data Result Diagram: 07/10/16 0500 07/10/16 0500 Culture Results Microbiology Date/Time Procedure Status Source Growth 07/09/16 02:50 Legionella Antigen - Final Complete Urine Catheterized Urine PRESUMPTIVE NEGATIVE FOR LEGIONELLA P... 07/09/16 02:50 Streptococcus pneumoniae Antigen (M - Final Complete Urine Catheterized Urine PRESUMPTIVE NEGATIVE FOR STREPTOCOCCU... 07/10/16 11:20 Aerobic Blood Culture Received Blood Peripheral Pending 07/10/16 11:20 Anaerobic Blood Culture Received Blood Peripheral Pending 07/10/16 11:23 Aerobic Blood Culture Received Blood Peripheral Pending 07/10/16 11:23 Anaerobic Blood Culture Received Blood Peripheral Pending Objective Remarks GENERAL: Intubated female supine in bed. SKIN: Warm and dry. HEAD: Normocephalic. EYES: No injection or drainage. NECK: Supple, trachea midline. CARDIOVASCULAR: +S1/S2 RESPIRATORY: anterior kim clear. GASTROINTESTINAL: Abdomen soft nondistended. EXTREMITIES: No cyanosis NEUROLOGICAL: sedated. Assessment/Plan Problem List: (1) Thrombocytopenia Status: Acute Plan: 07/10: coags improving. monitor CBC, coags. no transfusion today. 07/08: coags remain prolonged. thrombocytopenia likely d/t consumption with sepsis. will order u/s LE to r/o DVT. expect thrombocytopenia to resolve as sepsis resolves. --most likely due to sepsis syndrome. --other differential is TTP versus HUS versus ITP versus HIT. --peripheral blood smear reviewed with pathologist-->Significant numbers of red cell fragment schistocytes are NOT present and the microangiopathic hemolytic process is not favored. L --LDH is high at 666 which I believe is due to liver injury and not from the hemolysis. Therefore, I do not think that we are dealing with either TTP or HUS. --if platelet count drops to less than 10, recommend transfusion of platelets --LE U/S shows no DVT Assessment 46y/o female with acute thrombocytopenia. h/o Morbid obesity, s/p gastric bypass Anxiety Ureteral stenosis Attending Statement remains on vent blood counts slowly improving continue same plan Dawna López Jul 10, 2016 14:00 Kalpana Logan MD Jul 11, 2016 18:34
--- NOTE | 2016-07-10 16:11 | HHI.NPPN ---
Subjective General Problems: Anemia Renal Failure: Acute History of Present Illness 46-year-old female with a past medical history of morbid obesity, anxiety, history of urethral stenosis came to the hospital with back pain and dark urine. I was called to see the patient for elevated BUN and creatinine. The patient previously has creatinine of 0.4-0.5 this was in 2014. Additional Remarks Patient is clinically same, remain intubated and sedated. Review of Systems General Constitutional: Fatigue Cardiovascular Cardiac: Palpitations, LEA Objective Data Data 07/09/16 07/10/16 19:00 07:00 Intake Total 1729 ml 1650 ml Output Total 10 ml 1260 ml Balance 1719 ml 390 ml Intake Oral 0 ml IV Total 1416 ml 1200 ml Tube Feeding 253 ml 390 ml Other 60 ml 60 ml Output Urine Total 10 ml 260 ml Stool Total 0 ml 0 ml Hemodialysis 1000 ml # Bowel Movements 0 Vital Signs Date Time Temp Pulse Resp B/P Pulse Ox O2 Delivery O2 Flow Rate FiO2 07/10/16 16:00 98.6 106 22 161/84 96 07/10/16 16:00 40 07/10/16 16:00 106 07/10/16 14:00 101 07/10/16 12:00 40 07/10/16 12:00 99.6 97 27 139/79 95 07/10/16 12:00 97 07/10/16 11:32 95 40 07/10/16 10:00 98 07/10/16 08:42 95 40 07/10/16 08:00 99.5 97 24 110/57 94 07/10/16 08:00 40 07/10/16 08:00 97 07/10/16 07:00 93 Mechanical Ventilator 45 07/10/16 06:00 98 07/10/16 04:18 94 50 07/10/16 04:00 50 07/10/16 04:00 99.3 98 24 107/60 93 07/10/16 04:00 98 07/10/16 02:20 94 50 07/10/16 02:00 100 07/10/16 00:00 97.6 101 25 108/63 95 07/10/16 00:00 101 07/10/16 00:00 65 07/09/16 22:00 103 07/09/16 21:56 94 60 07/09/16 20:00 65 07/09/16 20:00 104 07/09/16 20:00 98.6 105 26 96/55 95 07/09/16 19:00 96 Mechanical Ventilator 65 07/09/16 18:00 104 07/09/16 17:34 93 60 07/09/16 17:00 105 -: 07/10/16 0500 07/10/16 0500 Microbiology 07/10/16 Aerobic Blood Culture, Received Pending 07/10/16 Anaerobic Blood Culture, Received Pending 07/10/16 Aerobic Blood Culture, Received Pending 07/10/16 Anaerobic Blood Culture, Received Pending Physical Exam General Appearance Remarks Intubated and sedated. Eyes Eye Exam: Pupils Equal Neck Neck Exam: Neck Supple Pulmonary Resp Exam: Breath Sounds Equal, No Distress, Rhonchi, Decreased Bases Cardiology CV Exam: Tachycardia Gastrointestinal/Abdomen GI Exam: Soft, Non-Tender, Bowel Sounds Present Extremeties Extremities Exam: Trace Edema Neurologic Neuro Exam: Sedated Assessment/Plan Assessment Summary: MICHAEL/Acute Renal Failure Problem List: (1) Sinus tachycardia (2) Thrombocytopenia (3) Hyponatremia (4) UTI (lower urinary tract infection) (5) Bandemia (6) Elevated LFTs (7) Lactic acidosis (8) Sepsis (9) Acute kidney injury Plan Patient has low urine out put. BUN and Creatinine increased. HR still elevated, BP is stable. Peripheral smear results noted. Most likely has MICHAEL related to sepsis. MELCHOR and ANCA negative. Only C3 slightly low. BC growing E.Coli ID following. platelets remain low. Started on HD. HD done today and 4 liters removed. Follow urine out put and BMP. HD as needed. Fernie Vega MD Jul 10, 2016 16:11
[2016-07-10] MEDS: cefTRIAXone INJ 1,000 MG in SODIUM CHLORIDE 0.9% INJ 100 ML IV SCH (17:17)
[2016-07-10] MEDS: MORPHINE SULFATE 4 MG/ML INJ IV PUSH PRN (22:22)
[2016-07-11] VITALS (19 sets, daily range): BP systolic 118–143; BP diastolic 67–92; PULSE 90–111; RESP 19–29; TEMP 98.1–100; O2SAT 95–99
[2016-07-11] MEDS: CHLORHEXIDINE GLUCONATE 2 % 1 PACK (2 CLOTHS)(taper/protocol) TOPICAL SCH (01:00)
[2016-07-11] MEDS: FUROSEMIDE 40 MG/4 ML VIAL IV PUSH SCH ×3 (01:57→17:03)
[2016-07-11] MEDS: PROPOFOL 1000 MG/100 ML INJ 100 ML IV SCH ×4 (01:57→23:11)
[2016-07-11] MEDS: INSULIN NovoLIN REGULAR SUPPLEMENTAL SCALE SQ SCH ×6 (01:58→22:00)
[2016-07-11] MEDS: RESP: ALBUTEROL 2.5 MG/IPRATROPIUM 0.5 MG NEB (SCH) NEB ×4 (03:04→21:48)
[2016-07-11 04:34] LABS: AUTOMATED NEUTROPHIL # 19.8 TH/MM3 (1.8-7.7); BASOPHIL % 0.1 % (0.0-2.0); HEMATOCRIT 27.5 % (35.0-46.0); LYMPH % 3.6 % (9.0-44.0); LYMPHOCYTE # 0.8 TH/MM3 (1.0-4.8); MEAN CELL VOLUME 92.7 FL (80.0-100.0); MEAN CORPUSCULAR HEMOGLOBIN 30.6 PG (27.0-34.0); MONO % 2.9 % (0.0-8.0); NEUT % 93.4 % (16.0-70.0); PLATELET COUNT 28 TH/MM3 (150-450); RED BLOOD COUNT 2.97 MIL/MM3 (4.00-5.30); RED CELL DISTRIBUTION WIDTH 16.6 % (11.6-17.2); WHITE BLOOD COUNT 21.2 TH/MM3 (4.0-11.0)
[2016-07-11 04:38] LABS: HEMO FLAGS AUTO DIFF
[2016-07-11 05:03] LABS: ANION GAP 8 MEQ/L (5-15); AST (GOT) 90 U/L (15-37); BICARBONATE 29.9 MEQ/L (21.0-32.0); BLOOD UREA NITROGEN 52 MG/DL (7-18); CHLORIDE 98 MEQ/L (98-107); GLOMERULAR FILTRATION RATE 14 ML/MIN (>89); SODIUM (NA) 136 MEQ/L (136-145)
[2016-07-11 05:08] LABS: ALKALINE PHOSPHATASE 208 U/L (45-117); ALT (GPT) 71 U/L (10-53); TOTAL BILIRUBIN ADULT 3.8 MG/DL (0.2-1.0)
[2016-07-11 05:21] LABS: BANDS 26 % (0-6); METAMYELOCYTES 1 % (0-1); NEUTROPHIL # MANUAL DIFF 19.5 TH/MM3 (1.8-7.7); PLATELET ESTIMATE SMEAR LOW (NORMAL); PLATELET MORPHOLOGY NORMAL (NORMAL); POLYS (SEG NEUTROPHILS) 65 % (16-70); SCAN/DIFF FINAL DIFF MANUAL; STOMATOCYTES 1+ (NORMAL); WBC DIFF SAMPLE 100
[2016-07-11] MEDS: SODIUM CHLORIDE 0.9% FLUSH 10 ML FLUSH IVF SCH (08:04)
[2016-07-11] MEDS: DILTIAZEM HCL 60 MG TAB PO SCH ×4 (08:04→21:19)
[2016-07-11] MEDS: methylPREDNISolone SOD SUCC 40 MG/1 ML VIAL IV SCH ×2 (08:04→21:19)
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
--- NOTE | 2016-07-11 10:20 | RADRPT ---
EXAM DATE/TIME: 07/11/2016 09:55 [facility] COMPARISON: CHEST SINGLE AP, July 09, 2016, 2:29. INDICATIONS : Respiratory distress. MEDICAL HISTORY : Hypertension. SURGICAL HISTORY : None. ENCOUNTER: Subsequent ACUITY: 4 - 6 days PAIN SCORE: Non-responsive. LOCATION: Bilateral chest FINDINGS: ET tube, and NG tube have not changed. Right IJ line is present with tip overlapping the expected reg ion of the SVC. Right subclavian line is present with tip overlapping the expected region of the SVC. There is improvement in the aeration of the lungs since the prior examination with residual mainly i nterstitial process remaining bilaterally. No definite pneumothorax is seen for technique. CONCLUSION: Overall improvement in the aeration of the lungs. Manny Mckeon MD on July 11, 2016 at 10:17 Board Certified Radiologist. This report was verified electronically.
--- NOTE | 2016-07-11 13:18 | PD.ONC.PN ---
Subjective Subjective Remarks Afebrile overnight. Patient remains intubated, but is off sedation and not responding yet. On CPAP today. Objective Data Date Time Temp Pulse Resp B/P Pulse Ox O2 Delivery O2 Flow Rate FiO2 07/11/16 08:13 99 40 07/11/16 08:13 40 07/11/16 08:00 40 07/11/16 07:00 96 Mechanical Ventilator 40 07/11/16 06:00 95 07/11/16 04:10 98 40 07/11/16 04:00 40 07/11/16 04:00 98.1 90 19 118/67 97 07/11/16 04:00 90 07/11/16 02:00 93 07/11/16 00:10 96 40 07/11/16 00:00 40 07/11/16 00:00 100.0 102 24 143/78 96 07/11/16 00:00 102 07/10/16 22:27 21 07/10/16 22:00 104 07/10/16 20:00 40 07/10/16 20:00 105 07/10/16 20:00 96 Mechanical Ventilator 40 07/10/16 20:00 99.2 105 26 156/78 96 07/10/16 19:33 96 40 07/10/16 18:00 106 07/10/16 16:23 96 40 07/10/16 16:00 98.6 106 22 161/84 96 07/10/16 16:00 40 07/10/16 16:00 106 07/10/16 14:00 101 07/11/16 07/11/16 07/11/16 07:00 15:00 23:00 Intake Total 392 ml Output Total 275 ml 0 ml Balance 117 ml 0 ml Result Diagram: 07/11/16 0330 07/11/16 0330 Laboratory Results Laboratory Tests Test 07/11/16 03:30 White Blood Count 21.2 TH/MM3 Red Blood Count 2.97 MIL/MM3 Hemoglobin 9.1 GM/DL Hematocrit 27.5 % Mean Corpuscular Volume 92.7 FL Mean Corpuscular Hemoglobin 30.6 PG Mean Corpuscular Hemoglobin 33.0 % Concent Red Cell Distribution Width 16.6 % Platelet Count 28 TH/MM3 Mean Platelet Volume 11.0 FL Neutrophils (%) (Auto) 93.4 % Lymphocytes (%) (Auto) 3.6 % Monocytes (%) (Auto) 2.9 % Eosinophils (%) (Auto) 0.0 % Basophils (%) (Auto) 0.1 % Neutrophils # (Auto) 19.8 TH/MM3 Lymphocytes # (Auto) 0.8 TH/MM3 Monocytes # (Auto) 0.6 TH/MM3 Eosinophils # (Auto) 0.0 TH/MM3 Basophils # (Auto) 0.0 TH/MM3 CBC Comment AUTO DIFF Differential Total Cells 100 Counted Neutrophils % (Manual) 65 % Band Neutrophils % 26 % Lymphocytes % 3 % Monocytes % 5 % Neutrophils # (Manual) 19.5 TH/MM3 Metamyelocytes 1 % Differential Comment FINAL DIFF MANUAL Platelet Estimate LOW Platelet Morphology Comment NORMAL Stomatocytes 1+ Sodium Level 136 MEQ/L Potassium Level 4.0 MEQ/L Chloride Level 98 MEQ/L Carbon Dioxide Level 29.9 MEQ/L Anion Gap 8 MEQ/L Blood Urea Nitrogen 52 MG/DL Creatinine 3.55 MG/DL Estimat Glomerular Filtration 14 ML/MIN Rate Random Glucose 120 MG/DL Calcium Level 7.7 MG/DL Total Bilirubin 3.8 MG/DL Aspartate Amino Transf 90 U/L (AST/SGOT) Alanine Aminotransferase 71 U/L (ALT/SGPT) Alkaline Phosphatase 208 U/L Total Protein 5.0 GM/DL Albumin 0.4 GM/DL Culture Results Microbiology Date/Time Procedure Status Source Growth 07/09/16 02:50 Legionella Antigen - Final Complete Urine Catheterized Urine PRESUMPTIVE NEGATIVE FOR LEGIONELLA P... 07/09/16 02:50 Streptococcus pneumoniae Antigen (M - Final Complete Urine Catheterized Urine PRESUMPTIVE NEGATIVE FOR STREPTOCOCCU... 07/10/16 11:20 Aerobic Blood Culture - Preliminary Resulted Blood Peripheral NO GROWTH IN 1 DAY 07/10/16 11:20 Anaerobic Blood Culture - Preliminary Resulted Blood Peripheral NO GROWTH IN 1 DAY 07/10/16 11:23 Aerobic Blood Culture - Preliminary Resulted Blood Peripheral NO GROWTH IN 1 DAY 07/10/16 11:23 Anaerobic Blood Culture - Preliminary Resulted Blood Peripheral NO GROWTH IN 1 DAY Imaging Studies Last 24 hours Impressions Chest X-Ray 07/11/16 0000 Signed Impressions: Service Date/Time: Monday, July 11, 2016 09:55 - CONCLUSION: Overall improvement in the aeration of the lungs. K. Mike Mckeon MD Administered Medications Medications (Trade) Dose Ordered Sig/Dulce Route PRN Reason Start Time Stop Time Status Last Admin Dose Admin Morphine Sulfate (Morphine Inj) 2 mg Q3H PRN IV PUSH pain level 3-10 07/06/16 21:15 07/10/16 22:22 Lorazepam (Ativan Inj) 1 mg Q6H PRN IV PUSH anxiety 07/06/16 21:15 07/06/16 21:44 Chlorhexidine Gluconate (Chlorhexidine 2% Cloth) 3 pack DAILY@04 TOPICAL 07/08/16 04:00 07/12/16 04:01 07/11/16 01:00 Dextrose (D50w (Vial) Inj) 25 ml UNSCH PRN IV PUSH HYPOGLYCEMIA-SEE COMMENTS 07/08/16 04:00 07/08/16 09:35 Diltiazem HCl (Cardizem) 60 mg QID PO 07/08/16 10:00 07/11/16 08:04 Furosemide (Lasix Inj) 40 mg Q8H IV PUSH 07/08/16 18:00 07/11/16 10:09 Methylprednisolone Sodium Succinate 40 mg 40 mg Q12H IV 07/08/16 21:00 07/11/16 08:04 Propofol 100 ml @ 0 mls/hr TITRATE IV 07/09/16 04:45 07/11/16 08:03 Sodium Chloride (NS 1000 ml Inj) 1,000 ml @ 0 mls/hr Q0M PRN IV For Prime & Rinse Back 07/09/16 11:18 07/10/16 13:15 Heparin Sodium (Porcine) (Heparin Inj) UNSCH PRN .XX WITH DIALYSIS 07/09/16 11:30 07/10/16 13:15 Gentamicin Sulfate 20 mg 20 mg UNSCH PRN IV WITH DIALYSIS 07/09/16 11:30 07/10/16 13:15 Levofloxacin/ Dextrose (Levaquin 500 Mg Premix Inj) 100 ml @ 100 mls/hr Q48H IV 07/09/16 14:00 07/09/16 16:26 Sodium Chloride (NS Flush) UNSCH PRN IVF SEE PROTOCOL 07/09/16 16:45 07/10/16 08:19 Sodium Chloride DAILY IVF 07/10/16 09:00 07/11/16 08:04 Ceftriaxone Sodium/Sodium Chloride (Rocephin Inj/NS Inj) 100 ml @ 200 mls/hr Q24H IV 07/09/16 18:00 07/10/16 17:17 Objective Remarks GENERAL: Intubated female supine in bed. SKIN: Warm and dry. HEAD: Normocephalic. EYES: No injection or drainage. NECK: Supple, trachea midline. CARDIOVASCULAR: +S1/S2 RESPIRATORY: anterior kim clear. GASTROINTESTINAL: Abdomen soft nondistended. EXTREMITIES: No cyanosis NEUROLOGICAL: +opens eyes. does not follow commands. does not track with eyes. Assessment/Plan Problem List: (1) Thrombocytopenia Status: Acute Plan: 07/11: platelets improved to 28K today without transfusion. will check coags. 07/10: coags improving. monitor CBC, coags. no transfusion today. 07/08: coags remain prolonged. thrombocytopenia likely d/t consumption with sepsis. will order u/s LE to r/o DVT. expect thrombocytopenia to resolve as sepsis resolves. --most likely due to sepsis syndrome. --other differential is TTP versus HUS versus ITP versus HIT. --peripheral blood smear reviewed with pathologist-->Significant numbers of red cell fragment schistocytes are NOT present and the microangiopathic hemolytic process is not favored. L --LDH is high at 666 which I believe is due to liver injury and not from the hemolysis. Therefore, I do not think that we are dealing with either TTP or HUS. --if platelet count drops to less than 10, recommend transfusion of platelets --LE U/S shows no DVT Assessment 46y/o female with acute thrombocytopenia. h/o Morbid obesity, s/p gastric bypass Anxiety Ureteral stenosis Attending Statement remains on vent. low grade fever. leucocytosis with bandemia due to sepsis plat improve to 28k without tx. a/b per ID. Dawna López Jul 11, 2016 13:18 Kalpana Logan MD Jul 11, 2016 18:37
[2016-07-11] MEDS: LEVOFLOXACIN 500 MG PREMIX INJ 100 ML IV SCH (14:11)
[2016-07-11 14:51] LABS: APTT (PATIENT) 25.6 SEC (24.3-30.1); INTERNATIONAL NORMALIZED RATIO 1.2 RATIO; PROTHROMBIN TIME - PATIENT 13.2 SEC (9.8-11.6)
[2016-07-11] MEDS ORDERED: Vancomycin Consult Pharmacy 1 EA OTHER SCH (15:00)
[2016-07-11] MEDS ORDERED: VANCOMYCIN INJ 1,250 MG in SODIUM CHLOR 0.9% 250 ML INJ 250 ML IV ONE (16:00)
[2016-07-11] MEDS: cefTRIAXone INJ 1,000 MG in SODIUM CHLORIDE 0.9% INJ 100 ML IV SCH (17:03)
--- NOTE | 2016-07-11 17:55 | HHI.NPPN ---
Subjective General Problems: Anemia Renal Failure: Acute History of Present Illness 46-year-old female with a past medical history of morbid obesity, anxiety, history of urethral stenosis came to the hospital with back pain and dark urine. I was called to see the patient for elevated BUN and creatinine. The patient previously has creatinine of 0.4-0.5 this was in 2014. Additional Remarks Patient remain intubated and sedated, now going for CT brain. Review of Systems General Constitutional: Fatigue Cardiovascular Cardiac: Palpitations, LEA Objective Data Data 07/10/16 07/11/16 19:00 07:00 Intake Total 908 ml 941 ml Output Total 4280 ml 525.0 ml Balance -3372 ml 416.0 ml IV Total 536 ml 347 ml Tube Feeding 312 ml 474 ml Other 60 ml 120 ml Output Urine Total 280 ml 525 ml Stool Total 0 ml Tube Feeding Residual Discard 0 ml Hemodialysis 4000 ml # Bowel Movements 0 0 Vital Signs Date Time Temp Pulse Resp B/P Pulse Ox O2 Delivery O2 Flow Rate FiO2 07/11/16 17:24 97 40 07/11/16 16:17 19 07/11/16 14:00 111 07/11/16 13:15 96 40 07/11/16 12:00 99.7 96 19 135/73 97 07/11/16 12:00 96 07/11/16 12:00 40 07/11/16 10:00 97 07/11/16 08:13 99 40 07/11/16 08:13 40 07/11/16 08:00 100 07/11/16 08:00 99.4 104 29 140/92 99 07/11/16 08:00 40 07/11/16 07:00 96 Mechanical Ventilator 40 07/11/16 06:00 95 07/11/16 04:10 98 40 07/11/16 04:00 40 07/11/16 04:00 98.1 90 19 118/67 97 07/11/16 04:00 90 07/11/16 02:00 93 07/11/16 00:10 96 40 07/11/16 00:00 40 07/11/16 00:00 100.0 102 24 143/78 96 07/11/16 00:00 102 07/10/16 22:27 21 07/10/16 22:00 104 07/10/16 20:00 40 07/10/16 20:00 105 07/10/16 20:00 96 Mechanical Ventilator 40 07/10/16 20:00 99.2 105 26 156/78 96 07/10/16 19:33 96 40 07/10/16 18:00 106 -: 07/11/16 0330 07/11/16 0330 Physical Exam General Appearance Remarks Intubated and sedated. Eyes Eye Exam: Pupils Equal Neck Neck Exam: Neck Supple Pulmonary Resp Exam: Breath Sounds Equal, No Distress, Rhonchi, Decreased Bases Cardiology CV Exam: Tachycardia Gastrointestinal/Abdomen GI Exam: Soft, Non-Tender, Bowel Sounds Present Extremeties Extremities Exam: Trace Edema Neurologic Neuro Exam: Sedated Assessment/Plan Assessment Summary: MICHAEL/Acute Renal Failure Problem List: (1) Sinus tachycardia (2) Thrombocytopenia (3) Hyponatremia (4) UTI (lower urinary tract infection) (5) Bandemia (6) Elevated LFTs (7) Lactic acidosis (8) Sepsis (9) Acute kidney injury Plan Patient has low urine out put. BUN and Creatinine increased. HR still elevated, BP is stable. Peripheral smear results noted. Most likely has MICHAEL related to sepsis. MELCHOR and ANCA negative. Only C3 slightly low. BC growing E.Coli ID following. platelets remain low. Started on HD. HD done yesterday. Now the urine out put is better. Will follow BMP and HD as needed. CT brain as she was not waking off sedation. Fernie Vega MD Jul 11, 2016 17:55
--- NOTE | 2016-07-11 18:02 | RADRPT ---
EXAM DATE/TIME: 07/11/2016 17:40 [facility] COMPARISON: CT BRAIN W/O CONTRAST, July 07, 2016, 14:39. INDICATIONS : Altered mental status. RADIATION DOSE: 56.35 CTDIvol (mGy) MEDICAL HISTORY : Hypertension. SURGICAL HISTORY : Tonsillectomy. ENCOUNTER: Initial ACUITY: 1 day PAIN SCALE: Non-responsive LOCATION: cranial TECHNIQUE: Multiple contiguous axial images were obtained of the head. Using automated exposure control and adj ustment of the mA and/or kV according to patient size, radiation dose was kept as low as reasonably a chievable to obtain optimal diagnostic quality images. FINDINGS: CEREBRUM: The ventricles are normal for age. No evidence of midline shift, mass lesion, hemorrhage or acute in farction. No extra-axial fluid collections are seen. POSTERIOR FOSSA: The cerebellum and brainstem are intact. The 4th ventricle is midline. The cerebellopontine angle i s unremarkable. EXTRACRANIAL: The visualized portion of the orbits is intact. SKULL: The calvaria is intact. No evidence of skull fracture. CONCLUSION: No acute intracranial process. Hoang Kirk MD on July 11, 2016 at 17:58 Board Certified Radiologist. This report was verified electronically.
[2016-07-11 19:16] LABS: BACTERIA, URINE OCC /hpf; BLOOD, URINE MOD (NEG); COMMENT (UR) CATH-CULTURE IND; CULTURE IF INDICATED CATH CULTURE IND; GLUCOSE,URINE NEG (NEG); KETONE, URINE NEG (NEG); NITRITE,URINE NEG (NEG); PH, URINE 5.5 (5.0-8.5); SQUAMOUS EPITHELIAL CELL URINE 1 /hpf (0-5); URINE COLOR YELLOW (YELLW/STRAW)
--- NOTE | 2016-07-11 21:42 | RADRPT ---
EXAM DATE/TIME: 07/11/2016 20:14 [facility] COMPARISON: CT ABDOMEN & PELVIS W/O CONTRAST, July 07, 2016, 14:42. INDICATIONS : Increased lab values. MEDICAL HISTORY : Hypertension. Migraines. Asthma. Sleep apnea. Anxiety. SURGICAL HISTORY : Tonsillectomy. Adenoidectomy. Gastric bypass. D&C. Urethral stretching. ENCOUNTER: Initial ACUITY: 1 day PAIN SCORE: 0/10 LOCATION: Bilateral upper quadrant MEASUREMENTS: LIVER: 18.43 cm length COMMON DUCT: 7 mm RIGHT KIDNEY: 12.4 x 6.3 x 6.2 cm SPLEEN: 10.6 cm length FINDINGS: LIVER: Normal echotexture without focal lesion or ductal dilatation. Hepatopedal flow. COMMON DUCT: No intraluminal mass or stone visualized. GALLBLADDER: Contains a gallstone in the neck stones, demonstrates wall thickening without pericholecystic fluid. PANCREAS: Not well seen. RIGHT KIDNEY: No hydronephrosis, stone or mass. SPLEEN: No focal lesion. CONCLUSION: 1. Small gallstone in the region of the gallbladder neck and mild gallbladder wall thickening. 2. Common bile duct is slightly prominent 7 mm. Warren Mayorga MD on July 11, 2016 at 21:38 Board Certified Radiologist. This report was verified electronically.
--- NOTE | 2016-07-11 21:49 | HHI.IDPN ---
Subjective Subjective Remarks delayed entry - pt was seen earlier today Dw RN Pt has GPC in clusters in his blood clx remins on vent UOP improved no fever , aerlier had T max 100.0 Antibiotics CFTX Allergies: Coded Allergies: Ibuprofen (Unverified Allergy, Severe, S/P GASTRIC BYPASS, 07/06/16) Penicillin (Verified Allergy, Severe, 07/06/16) Toradol (Unverified Allergy, Severe, S/P GASTRIC BYPASS, 07/06/16) Objective . Vital Signs Date Time Temp Pulse Resp B/P Pulse Ox O2 Delivery O2 Flow Rate FiO2 07/11/16 18:00 92 07/11/16 17:30 97 100 07/11/16 17:24 97 40 07/11/16 16:17 19 07/11/16 16:00 99.2 101 23 131/75 95 07/11/16 16:00 101 07/11/16 16:00 40 07/11/16 14:00 111 07/11/16 13:15 96 40 07/11/16 12:00 99.7 96 19 135/73 97 07/11/16 12:00 96 07/11/16 12:00 40 07/11/16 10:00 97 07/11/16 08:13 99 40 07/11/16 08:13 40 07/11/16 08:00 100 07/11/16 08:00 99.4 104 29 140/92 99 07/11/16 08:00 40 07/11/16 07:00 96 Mechanical Ventilator 40 07/11/16 06:00 95 07/11/16 04:10 98 40 07/11/16 04:00 40 07/11/16 04:00 98.1 90 19 118/67 97 07/11/16 04:00 90 07/11/16 02:00 93 07/11/16 00:10 96 40 07/11/16 00:00 40 07/11/16 00:00 100.0 102 24 143/78 96 07/11/16 00:00 102 07/10/16 22:27 21 07/10/16 22:00 104 07/10/16 07/10/16 07/11/16 15:00 23:00 07:00 Intake Total 908 ml 549 ml 392 ml Output Total 280 ml 4250.0 ml 275 ml Balance 628 ml -3701.0 ml 117 ml IV Total 536 ml 228 ml 119 ml Tube Feeding 312 ml 261 ml 213 ml Other 60 ml 60 ml 60 ml Output Urine Total 280 ml 250 ml 275 ml Stool Total 0 ml Tube Feeding Residual Discard 0 ml 0 ml Hemodialysis 4000 ml # Bowel Movements 0 0 0 . Laboratory Tests Test 07/10/16 07/11/16 05:00 03:30 White Blood Count 20.0 TH/MM3 21.2 TH/MM3 Red Blood Count 2.92 MIL/MM3 2.97 MIL/MM3 Hemoglobin 9.1 GM/DL 9.1 GM/DL Hematocrit 26.7 % 27.5 % Mean Corpuscular Volume 91.4 FL 92.7 FL Mean Corpuscular Hemoglobin 31.0 PG 30.6 PG Mean Corpuscular Hemoglobin 33.9 % 33.0 % Concent Red Cell Distribution Width 16.4 % 16.6 % Platelet Count 14 TH/MM3 28 TH/MM3 Mean Platelet Volume 9.9 FL 11.0 FL Neutrophils (%) (Auto) 96.6 % 93.4 % Lymphocytes (%) (Auto) 2.3 % 3.6 % Monocytes (%) (Auto) 0.9 % 2.9 % Eosinophils (%) (Auto) 0.1 % 0.0 % Basophils (%) (Auto) 0.1 % 0.1 % Neutrophils # (Auto) 19.3 TH/MM3 19.8 TH/MM3 Lymphocytes # (Auto) 0.5 TH/MM3 0.8 TH/MM3 Monocytes # (Auto) 0.2 TH/MM3 0.6 TH/MM3 Eosinophils # (Auto) 0.0 TH/MM3 0.0 TH/MM3 Basophils # (Auto) 0.0 TH/MM3 0.0 TH/MM3 CBC Comment AUTO DIFF AUTO DIFF Differential Total Cells 100 100 Counted Neutrophils % (Manual) 73 % 65 % Band Neutrophils % 20 % 26 % Lymphocytes % 2 % 3 % Monocytes % 4 % 5 % Neutrophils # (Manual) 18.8 TH/MM3 19.5 TH/MM3 Metamyelocytes 1 % 1 % Differential Comment FINAL DIFF FINAL DIFF MANUAL MANUAL Platelet Estimate LOW LOW Platelet Morphology Comment NORMAL NORMAL Target Cells 1+ Stomatocytes 1+ Laboratory Tests Test 07/10/16 07/11/16 05:00 03:30 Sodium Level 134 MEQ/L 136 MEQ/L Potassium Level 4.1 MEQ/L 4.0 MEQ/L Chloride Level 94 MEQ/L 98 MEQ/L Carbon Dioxide Level 30.7 MEQ/L 29.9 MEQ/L Anion Gap 9 MEQ/L 8 MEQ/L Blood Urea Nitrogen 51 MG/DL 52 MG/DL Creatinine 4.40 MG/DL 3.55 MG/DL Estimat Glomerular Filtration 11 ML/MIN 14 ML/MIN Rate Random Glucose 124 MG/DL 120 MG/DL Calcium Level 7.5 MG/DL 7.7 MG/DL Total Bilirubin 5.2 MG/DL 3.8 MG/DL Aspartate Amino Transf 80 U/L 90 U/L (AST/SGOT) Alanine Aminotransferase 80 U/L 71 U/L (ALT/SGPT) Alkaline Phosphatase 174 U/L 208 U/L Total Protein 4.8 GM/DL 5.0 GM/DL Albumin 1.4 GM/DL 0.4 GM/DL Microbiology Date/Time Procedure Status Source Growth 07/09/16 02:50 Legionella Antigen - Final Complete Urine Catheterized Urine PRESUMPTIVE NEGATIVE FOR LEGIONELLA P... 07/09/16 02:50 Streptococcus pneumoniae Antigen (M - Final Complete Urine Catheterized Urine PRESUMPTIVE NEGATIVE FOR STREPTOCOCCU... 07/10/16 11:20 Aerobic Blood Culture - Preliminary Resulted Blood Peripheral NO GROWTH IN 1 DAY 07/10/16 11:20 Anaerobic Blood Culture - Preliminary Resulted Blood Peripheral NO GROWTH IN 1 DAY 07/10/16 11:23 Aerobic Blood Culture - Preliminary Resulted Blood Peripheral Gram Positive Cocci 07/10/16 11:23 Anaerobic Blood Culture - Preliminary Resulted Blood Peripheral NO GROWTH IN 1 DAY 07/11/16 15:30 Aerobic Blood Culture Received Blood Peripheral Pending 07/11/16 15:30 Anaerobic Blood Culture Received Blood Peripheral Pending 07/11/16 15:30 Urine Culture Received Urine Clean Catch Pending 07/11/16 16:00 Gram Stain Received Sputum Endotracheal Pending 07/11/16 16:00 Sputum Culture Received Sputum Endotracheal Pending 07/11/16 19:29 Aerobic Blood Culture Received Blood Peripheral Pending 07/11/16 19:29 Anaerobic Blood Culture Received Blood Peripheral Pending Imaging Last Impressions Head CT 07/11/16 0000 Signed Impressions: Service Date/Time: Monday, July 11, 2016 17:40 - CONCLUSION: No acute intracranial process. Hoang Kirk MD Chest X-Ray 07/11/16 0000 Signed Impressions: Service Date/Time: Monday, July 11, 2016 09:55 - CONCLUSION: Overall improvement in the aeration of the lungs. Manny Mckeon MD Central Venous Line 07/09/16 0000 Signed Impressions: Service Date/Time: Saturday, July 09, 2016 15:12 - CONCLUSION: Uncomplicated line placement as above. Procedure was done in conjunction with a right IJ Vas-Cath placement. Hoang Kirk MD Catheter Placement X-Ray 07/09/16 0000 Signed Impressions: Service Date/Time: Saturday, July 09, 2016 15:34 - CONCLUSION: Uncomplicated line placement as above. The procedure was done in conjunction with a right subclavian central venous catheter placement Hoang Kirk MD Lower Extremity Ultrasound 07/08/16 0000 Signed Impressions: Service Date/Time: Friday, July 08, 2016 18:43 - CONCLUSION: Normal examination. Iban Mann MD Abdomen/Pelvis CT 07/07/16 0000 Signed Impressions: Service Date/Time: Thursday, July 07, 2016 14:42 - CONCLUSION: Status post gastric bypass with what may be a fluid-filled gastric remnant. This may be chronic however a blind loop syndrome should be excluded. Enlarged kidneys with diffuse cortical thickening; evaluate for possible bilateral pyelonephritis. Intestinal ileus without evidence of mechanical obstruction. Ischemic bowel should be excluded. Cholelithiasis without evidence of gallbladder inflammation. Developing anasarca Scotty Shaw MD Renal Ultrasound 07/06/16 0000 Signed Impressions: Service Date/Time: Wednesday, July 06, 2016 22:23 - CONCLUSION: Normal examination. Juan Alberto Raya MD Physical Exam CONSTITUTIONAL/GENERAL: This is an adequately nourished patient, in no apparent distress. TUBES/LINES/DRAINS: SKIN: No jaundice, rashes, or lesions. Ecchymoses on upper extremities. No wounds seen anteriorly. Skin temperature appropriate. Not diaphoretic. HEAD: Atraumatic. Normocephalic. EYES: Pupils equal and round and reactive. Extraocular motions intact. Minimal scleral icterus. No injection or drainage. Fundi not examined. ENT: Hearing grossly normal. Nose without bleeding or purulent drainage. Dry mucosae . NECK: Trachea midline. Supple, nontender. No palpable thyroid enlargement or nodularity. CARDIOVASCULAR: Regular rate and rhythm without murmurs, gallops, or rubs. No JVD. Peripheral pulses symmetric. RESPIRATORY/CHEST: Symmetric, unlabored respirations. Clear to auscultation. Breath sounds equal bilaterally. No wheezes, rales, or rhonchi. GASTROINTESTINAL: Abdomen soft, non-tender, nondistended. No hepato-splenomegaly , or palpable masses. No guarding. Bowel sounds present. GENITOURINARY: Without palpable bladder distension. Quesada catheter in place with small amount of less cloudy less bloody urine MUSCULOSKELETAL: Extremities without clubbing, cyanosis, or edema. No joint tenderness or effusion noted. No calf tenderness. No mottling or clubbing. NEUROLOGICAL: Awake and alert. Motor and sensory grossly within normal limits. Follows commands. Normal speech, confused; oriented x 2 only Moves all extremities. PSYCHIATRIC: calm, cooperative Assessment & Plan Remarks Sepsis, E.coli 2/2 UTI 2/2 E.coli ARF 2/2 sepsis - HD is planned VDRF probably 2/2 ARDS in sepsis settings DIC trombocytoepna, severe leukocytos Bandemia Toleartaed Keflex in the past uneventfully New + blood clx: GPC bacteremia ? vascath - central line? - cont levaquine - cont CFTX - will chk vanco level in am; redose - fu P blood clx - dw Dr Melissa Lang,Tiffany Morton MD Jul 11, 2016 21:49
[2016-07-12] VITALS (19 sets, daily range): BP systolic 111–142; BP diastolic 69–83; PULSE 66–104; RESP 18–22; TEMP 98.2–100.5; O2SAT 96–99
[2016-07-12] MEDS: INSULIN NovoLIN REGULAR SUPPLEMENTAL SCALE SQ SCH ×6 (02:00→21:41)
[2016-07-12] MEDS: FUROSEMIDE 40 MG/4 ML VIAL IV PUSH SCH ×3 (02:30→16:48)
[2016-07-12] MEDS: RESP: ALBUTEROL 2.5 MG/IPRATROPIUM 0.5 MG NEB (SCH) NEB ×2 (03:37→08:49)
[2016-07-12] MEDS: CHLORHEXIDINE GLUCONATE 2 % 1 PACK (2 CLOTHS)(taper/protocol) TOPICAL SCH (04:00)
[2016-07-12 04:13] LABS: HEMATOCRIT 26.8 % (35.0-46.0); MEAN CELL VOLUME 91.6 FL (80.0-100.0); MEAN CORPUSCULAR HEMOGLOBIN 31.1 PG (27.0-34.0); PLATELET COUNT 81 TH/MM3 (150-450); RED BLOOD COUNT 2.93 MIL/MM3 (4.00-5.30); RED CELL DISTRIBUTION WIDTH 16.4 % (11.6-17.2); WHITE BLOOD COUNT 22.1 TH/MM3 (4.0-11.0)
[2016-07-12 04:17] LABS: HEMO FLAGS AUTO DIFF
[2016-07-12 04:41] LABS: BICARBONATE 29.2 MEQ/L (21.0-32.0); CALCIUM-PROTEIN CORRECTED 7.7 MG/DL (8.5-10.1); POTASSIUM 4.3 MEQ/L (3.5-5.1); TOTAL BILIRUBIN ADULT 2.3 MG/DL (0.2-1.0)
[2016-07-12] MEDS: PROPOFOL 1000 MG/100 ML INJ 100 ML IV SCH (06:14)
[2016-07-12 07:01] LABS: BANDS 8 % (0-6); NEUTROPHIL # MANUAL DIFF 21.7 TH/MM3 (1.8-7.7); POLYS (SEG NEUTROPHILS) 90 % (16-70); TARGET CELLS 1+ (NORMAL); WBC DIFF SAMPLE 100
[2016-07-12 07:02] LABS: PLATELET ESTIMATE SMEAR LOW (NORMAL); PLATELET MORPHOLOGY ENLARGED (NORMAL); SCAN/DIFF FINAL DIFF MANUAL; STOMATOCYTES 1+ (NORMAL)
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
[2016-07-12] MEDS: SODIUM CHLORIDE 0.9% FLUSH 10 ML FLUSH IVF SCH (08:21)
[2016-07-12] MEDS: DILTIAZEM HCL 60 MG TAB PO SCH ×4 (08:21→19:49)
[2016-07-12] MEDS: methylPREDNISolone SOD SUCC 40 MG/1 ML VIAL IV SCH ×2 (08:21→19:49)
[2016-07-12] MEDS: MORPHINE SULFATE 4 MG/ML INJ IV PUSH PRN ×2 (08:44→16:57)
[2016-07-12] MEDS: DEXMEDETOMIDINE INJ 200 MCG in SODIUM CHLORIDE 0.9% INJ 50 ML IV SCH ×5 (11:17→22:52)
--- NOTE | 2016-07-12 12:06 | PD.ONC.PN ---
Subjective Subjective Remarks Afebrile overnight. Pt intubated on ventilator. She is awake, shaking her head "no". Per RN, she failed CPAP trials and her sedation has recently been turned back on. No bleeding. Objective Data Date Time Temp Pulse Resp B/P Pulse Ox O2 Delivery O2 Flow Rate FiO2 07/12/16 08:49 40 07/12/16 08:49 96 40 07/12/16 06:00 101 07/12/16 04:21 98 40 07/12/16 04:00 91 07/12/16 04:00 40 07/12/16 04:00 98.2 91 19 128/75 96 07/12/16 02:00 93 07/12/16 01:14 96 40 07/12/16 00:00 40 07/12/16 00:00 99.1 93 19 127/74 97 07/12/16 00:00 91 07/11/16 22:00 93 07/11/16 20:18 97 40 07/11/16 20:00 97 Mechanical Ventilator 40 07/11/16 20:00 40 07/11/16 20:00 91 07/11/16 20:00 99.1 91 20 126/76 97 07/11/16 19:00 97 Bi-Pap 40 07/11/16 18:00 92 07/11/16 17:30 97 100 07/11/16 17:24 97 40 07/11/16 16:17 19 07/11/16 16:00 99.2 101 23 131/75 95 07/11/16 16:00 101 07/11/16 16:00 40 07/11/16 14:00 111 07/11/16 13:15 96 40 07/11/16 12:00 99.7 96 19 135/73 97 07/11/16 12:00 96 07/11/16 12:00 40 07/12/16 07/12/16 07/12/16 07:00 15:00 23:00 Intake Total 213 ml Output Total 800 ml Balance -587 ml Result Diagram: 07/12/16 0335 07/12/16 0335 Laboratory Results Laboratory Tests Test 07/11/16 07/11/16 07/12/16 13:37 15:30 03:35 Prothrombin Time 13.2 SEC Prothromb Time International 1.2 RATIO Ratio Activated Partial 25.6 SEC Thromboplast Time Fibrinogen 415 mg/dL Urine Color YELLOW Urine Turbidity HAZY Urine pH 5.5 Urine Specific [place] 1.010 Urine Protein 30 mg/dL Urine Glucose (UA) NEG mg/dL Urine Ketones NEG mg/dL Urine Occult Blood MOD Urine Nitrite NEG Urine Bilirubin NEG Urine Urobilinogen LESS THAN 2.0 MG/DL Urine Leukocyte Esterase MOD Urine RBC 16 /hpf Urine WBC 49 /hpf Urine Squamous Epithelial 1 /hpf Cells Urine Amorphous Sediment RARE Urine Bacteria OCC /hpf Microscopic Urinalysis Comment CATH-CULTURE IND White Blood Count 22.1 TH/MM3 Red Blood Count 2.93 MIL/MM3 Hemoglobin 9.1 GM/DL Hematocrit 26.8 % Mean Corpuscular Volume 91.6 FL Mean Corpuscular Hemoglobin 31.1 PG Mean Corpuscular Hemoglobin 34.0 % Concent Red Cell Distribution Width 16.4 % Platelet Count 81 TH/MM3 Mean Platelet Volume 10.2 FL Neutrophils (%) (Auto) % Lymphocytes (%) (Auto) % Monocytes (%) (Auto) % Eosinophils (%) (Auto) % Basophils (%) (Auto) % Neutrophils # (Auto) TH/MM3 Lymphocytes # (Auto) TH/MM3 Monocytes # (Auto) TH/MM3 Eosinophils # (Auto) TH/MM3 Basophils # (Auto) TH/MM3 CBC Comment AUTO DIFF Differential Total Cells 100 Counted Neutrophils % (Manual) 90 % Band Neutrophils % 8 % Monocytes % 2 % Neutrophils # (Manual) 21.7 TH/MM3 Differential Comment FINAL DIFF MANUAL Platelet Estimate LOW Platelet Morphology Comment ENLARGED Target Cells 1+ Stomatocytes 1+ Sodium Level 137 MEQ/L Potassium Level 4.3 MEQ/L Chloride Level 95 MEQ/L Carbon Dioxide Level 29.2 MEQ/L Anion Gap 13 MEQ/L Blood Urea Nitrogen 102 MG/DL Creatinine 3.76 MG/DL Estimat Glomerular Filtration 13 ML/MIN Rate Random Glucose 105 MG/DL Calcium Level 6.6 MG/DL Protein Corrected Calcium 7.7 MG/DL Total Bilirubin 2.3 MG/DL Aspartate Amino Transf 46 U/L (AST/SGOT) Alanine Aminotransferase 60 U/L (ALT/SGPT) Alkaline Phosphatase 178 U/L Total Protein 4.9 GM/DL Albumin 1.5 GM/DL Random Vancomycin Level 25.5 COMMENT Culture Results Microbiology Date/Time Procedure Status Source Growth 07/10/16 11:20 Aerobic Blood Culture - Preliminary Resulted Blood Peripheral NO GROWTH IN 2 DAYS 07/10/16 11:20 Anaerobic Blood Culture - Preliminary Resulted Blood Peripheral NO GROWTH IN 2 DAYS 07/10/16 11:23 Aerobic Blood Culture - Preliminary Resulted Blood Peripheral Gram Positive Cocci 07/10/16 11:23 Anaerobic Blood Culture - Preliminary Resulted Gram Positive Cocci 07/11/16 15:30 Aerobic Blood Culture - Preliminary Resulted Blood Peripheral NO GROWTH IN 1 DAY 07/11/16 15:30 Anaerobic Blood Culture - Preliminary Resulted Blood Peripheral NO GROWTH IN 1 DAY 07/11/16 15:30 Urine Culture Received Urine Clean Catch Pending 07/11/16 16:00 Gram Stain - Final Resulted Sputum Endotracheal 07/11/16 16:00 Sputum Culture - Preliminary Resulted Sputum Endotracheal IMMATURE GROWTH - REINCUBATE 07/11/16 19:29 Aerobic Blood Culture - Preliminary Resulted Blood Peripheral NO GROWTH IN 1 DAY 07/11/16 19:29 Anaerobic Blood Culture - Preliminary Resulted Blood Peripheral NO GROWTH IN 1 DAY Administered Medications Medications (Trade) Dose Ordered Sig/Dulce Route PRN Reason Start Time Stop Time Status Last Admin Dose Admin Morphine Sulfate (Morphine Inj) 2 mg Q3H PRN IV PUSH pain level 3-10 07/06/16 21:15 07/12/16 08:44 Lorazepam (Ativan Inj) 1 mg Q6H PRN IV PUSH anxiety 07/06/16 21:15 07/06/16 21:44 Dextrose (D50w (Vial) Inj) 25 ml UNSCH PRN IV PUSH HYPOGLYCEMIA-SEE COMMENTS 07/08/16 04:00 07/08/16 09:35 Diltiazem HCl (Cardizem) 60 mg QID PO 07/08/16 10:00 07/12/16 08:21 Furosemide (Lasix Inj) 40 mg Q8H IV PUSH 07/08/16 18:00 07/12/16 08:22 Methylprednisolone Sodium Succinate 40 mg 40 mg Q12H IV 07/08/16 21:00 07/12/16 08:21 Propofol 100 ml @ 0 mls/hr TITRATE IV 07/09/16 04:45 07/12/16 06:14 Sodium Chloride (NS 1000 ml Inj) 1,000 ml @ 0 mls/hr Q0M PRN IV For Prime & Rinse Back 07/09/16 11:18 07/10/16 13:15 Heparin Sodium (Porcine) (Heparin Inj) UNSCH PRN .XX WITH DIALYSIS 07/09/16 11:30 07/10/16 13:15 Gentamicin Sulfate (Gentamicin (Dialysis) Inj) 20 mg UNSCH PRN IV WITH DIALYSIS 07/09/16 11:30 07/10/16 13:15 Acetaminophen 650 mg 650 mg UNSCH PRN PO for headach, pain, temp > 101F 07/09/16 11:30 07/11/16 14:11 Levofloxacin/ Dextrose (Levaquin 500 Mg Premix Inj) 100 ml @ 100 mls/hr Q48H IV 07/09/16 14:00 07/11/16 14:11 Sodium Chloride (NS Flush) UNSCH PRN IVF SEE PROTOCOL 07/09/16 16:45 07/10/16 08:19 Sodium Chloride DAILY IVF 07/10/16 09:00 07/12/16 08:21 Ceftriaxone Sodium 1000 mg/ Sodium Chloride 100 ml @ 200 mls/hr Q24H IV 07/09/16 18:00 07/11/16 17:03 Dexmedetomidine HCl/Sodium Chloride (Precedex Inj/NS Inj) 52 ml @ 0 mls/hr TITRATE IV 07/12/16 10:30 07/12/16 11:17 Objective Remarks GENERAL: Intubated female supine in bed. She is awake. SKIN: Warm and dry. No oozing from lines. HEAD: Normocephalic. EYES: No injection or drainage. NECK: Supple, trachea midline. CARDIOVASCULAR: +S1/S2 RESPIRATORY: anterior kim clear. GASTROINTESTINAL: Abdomen soft nondistended. EXTREMITIES: No cyanosis NEUROLOGICAL: Eyes open. Per RN, Precedex was recently turned back on. Assessment/Plan Problem List: (1) Thrombocytopenia Status: Acute Plan: 07/12: Platelets 81k today. No bleeding per RN. Continue to monitor coags , CBC. 07/11: platelets improved to 28K today without transfusion. will check coags. 07/10: coags improving. monitor CBC, coags. no transfusion today. 07/08: coags remain prolonged. thrombocytopenia likely d/t consumption with sepsis. will order u/s LE to r/o DVT. expect thrombocytopenia to resolve as sepsis resolves. --most likely due to sepsis syndrome. --other differential is TTP versus HUS versus ITP versus HIT. --peripheral blood smear reviewed with pathologist-->Significant numbers of red cell fragment schistocytes are NOT present and the microangiopathic hemolytic process is not favored. L --LDH is high at 666 which I believe is due to liver injury and not from the hemolysis. Therefore, I do not think that we are dealing with either TTP or HUS. --if platelet count drops to less than 10, recommend transfusion of platelets --LE U/S shows no DVT Assessment 46y/o female with acute thrombocytopenia. h/o Morbid obesity, s/p gastric bypass Anxiety Ureteral stenosis Attending Statement The exam, history, and the medical decision-making described in the above note were completed with the assistance of the mid-level provider. I reviewed and agree with the findings presented. I attest that I had a [id number] encounter with the patient on the same day, and personally performed and documented my assessment and findings in the medical record. 46-year-old female with Escherichia coli urosepsis with resultant renal failure requiring hemodialysis, respiratory failure and partially compensated/poorly compensated peripheral consumptive coagulopathy. Gradually recovering from the sepsis syndrome however remains dialysis dependent, remains intubated. Her coagulopathy however is improving with improvement in her platelet counts, PT/ PTT and INR levels. I'm not certain what would provoke such a severe urosepsis in an otherwise reasonably healthy young woman. The hope is her respiratory status and renal status will improve with appropriate supportive care. From a hematologic standpoint she is up improving as would be anticipated with improvement of urosepsis. Jaclyn Zhou Jul 12, 2016 12:06 Lui Montgomery MD Jul 12, 2016 15:07
--- NOTE | 2016-07-12 12:23 | HHI.NPPN ---
Subjective General Problems: Anemia Renal Failure: Acute History of Present Illness 46-year-old female with a past medical history of morbid obesity, anxiety, history of urethral stenosis came to the hospital with back pain and dark urine. I was called to see the patient for elevated BUN and creatinine. The patient previously has creatinine of 0.4-0.5 this was in 2014. Additional Remarks Patient remain intubated and on mild sedation. Review of Systems General Constitutional: Fatigue Cardiovascular Cardiac: Palpitations, LEA Objective Data Data 07/11/16 07/12/16 19:00 07:00 Intake Total 261 ml 345 ml Output Total 650 ml 1450 ml Balance -389 ml -1105 ml Intake Oral 0 ml IV Total 110 ml 203 ml Tube Feeding 91 ml 52 ml Other 60 ml 90 ml Output Urine Total 650 ml 1450 ml Tube Feeding Residual Discard 0 ml # Bowel Movements 0 0 Vital Signs Date Time Temp Pulse Resp B/P Pulse Ox O2 Delivery O2 Flow Rate FiO2 07/12/16 08:49 40 07/12/16 08:49 96 40 07/12/16 08:00 104 07/12/16 06:00 101 07/12/16 04:21 98 40 07/12/16 04:00 91 07/12/16 04:00 40 07/12/16 04:00 98.2 91 19 128/75 96 07/12/16 02:00 93 07/12/16 01:14 96 40 07/12/16 00:00 40 07/12/16 00:00 99.1 93 19 127/74 97 07/12/16 00:00 91 07/11/16 22:00 93 07/11/16 20:18 97 40 07/11/16 20:00 97 Mechanical Ventilator 40 07/11/16 20:00 40 07/11/16 20:00 91 07/11/16 20:00 99.1 91 20 126/76 97 07/11/16 19:00 97 Bi-Pap 40 07/11/16 18:00 92 07/11/16 17:30 97 100 07/11/16 17:24 97 40 07/11/16 16:17 19 07/11/16 16:00 99.2 101 23 131/75 95 07/11/16 16:00 101 07/11/16 16:00 40 07/11/16 14:00 111 07/11/16 13:15 96 40 -: 07/12/16 0335 07/12/16 0335 Microbiology 07/11/16 Aerobic Blood Culture - Preliminary, Resulted NO GROWTH IN 1 DAY 07/11/16 Anaerobic Blood Culture - Preliminary, Resulted NO GROWTH IN 1 DAY 07/11/16 Urine Culture - Preliminary, Resulted NO GROWTH IN 24 HOURS. 07/11/16 Gram Stain - Final, Resulted 07/11/16 Sputum Culture - Preliminary, Resulted IMMATURE GROWTH - REINCUBATE 07/11/16 Aerobic Blood Culture - Preliminary, Resulted NO GROWTH IN 1 DAY 07/11/16 Anaerobic Blood Culture - Preliminary, Resulted NO GROWTH IN 1 DAY Physical Exam General Appearance Remarks Intubated and sedated. Eyes Eye Exam: Pupils Equal Neck Neck Exam: Neck Supple Pulmonary Resp Exam: Breath Sounds Equal, No Distress, Rhonchi, Decreased Bases Cardiology CV Exam: Tachycardia Gastrointestinal/Abdomen GI Exam: Soft, Non-Tender, Bowel Sounds Present Extremeties Extremities Exam: Trace Edema Neurologic Neuro Exam: Sedated Assessment/Plan Assessment Summary: MICHAEL/Acute Renal Failure Problem List: (1) Sinus tachycardia (2) Thrombocytopenia (3) Hyponatremia (4) UTI (lower urinary tract infection) (5) Bandemia (6) Elevated LFTs (7) Lactic acidosis (8) Sepsis (9) Acute kidney injury Plan Patient has low urine out put. BUN and Creatinine increased. HR is better and the BP is stable. Peripheral smear results noted. Most likely has MICHAEL related to sepsis. MELCHOR and ANCA negative. Only C3 slightly low. BC growing E.Coli ID following. platelets remain low. Started on HD. Last HD done on . Now the urine out put is better. HD today and then watch for renal recovery. Fernie Vega MD Jul 12, 2016 12:23
[2016-07-12] MEDS: SODIUM CHLOR 0.9% 1000 ML INJ 1,000 ML IV PRN (12:52)
[2016-07-12] MEDS: HEPARIN SODIUM - IV 10,000 UNITS/10 ML VIAL PRN (12:52)
[2016-07-12] MEDS: GENTAMICIN SULFATE (DIALYSIS USE ONLY) 20 MG/2 ML VIAL IV PRN (12:52)
[2016-07-12] MEDS: cefTRIAXone INJ 1,000 MG in SODIUM CHLORIDE 0.9% INJ 100 ML IV SCH (16:48)
--- NOTE | 2016-07-12 17:17 | HHI.IDPN ---
Subjective Subjective Remarks low grade fever good UOP no pressors Antibiotics CFTX levaquine vancomycin Allergies: Coded Allergies: Ibuprofen (Unverified Allergy, Severe, S/P GASTRIC BYPASS, 07/06/16) Penicillin (Verified Allergy, Severe, 07/06/16) Toradol (Unverified Allergy, Severe, S/P GASTRIC BYPASS, 07/06/16) Objective . Vital Signs Date Time Temp Pulse Resp B/P Pulse Ox O2 Delivery O2 Flow Rate FiO2 07/12/16 14:00 75 07/12/16 12:02 98 40 07/12/16 12:00 96 07/12/16 12:00 100.5 96 20 116/69 98 07/12/16 12:00 40 07/12/16 10:00 100 07/12/16 08:49 40 07/12/16 08:49 96 40 07/12/16 08:00 104 07/12/16 08:00 99.6 104 18 142/83 97 07/12/16 08:00 40 07/12/16 06:00 101 07/12/16 04:21 98 40 07/12/16 04:00 91 07/12/16 04:00 40 07/12/16 04:00 98.2 91 19 128/75 96 07/12/16 02:00 93 07/12/16 01:14 96 40 07/12/16 00:00 40 07/12/16 00:00 99.1 93 19 127/74 97 07/12/16 00:00 91 07/11/16 22:00 93 07/11/16 20:18 97 40 07/11/16 20:00 97 Mechanical Ventilator 40 07/11/16 20:00 40 07/11/16 20:00 91 07/11/16 20:00 99.1 91 20 126/76 97 07/11/16 19:00 97 Bi-Pap 40 07/11/16 18:00 92 07/11/16 17:30 97 100 07/11/16 17:24 97 40 07/11/16 07/11/16 07/12/16 15:00 23:00 07:00 Intake Total 261 ml 132 ml 213 ml Output Total 650 ml 650 ml 800 ml Balance -389 ml -518 ml -587 ml Intake Oral 0 ml IV Total 110 ml 102 ml 101 ml Tube Feeding 91 ml 52 ml Other 60 ml 30 ml 60 ml Output Urine Total 650 ml 650 ml 800 ml Tube Feeding Residual Discard 0 ml # Bowel Movements 0 0 0 . Laboratory Tests Test 07/11/16 07/12/16 03:30 03:35 White Blood Count 21.2 TH/MM3 22.1 TH/MM3 Red Blood Count 2.97 MIL/MM3 2.93 MIL/MM3 Hemoglobin 9.1 GM/DL 9.1 GM/DL Hematocrit 27.5 % 26.8 % Mean Corpuscular Volume 92.7 FL 91.6 FL Mean Corpuscular Hemoglobin 30.6 PG 31.1 PG Mean Corpuscular Hemoglobin 33.0 % 34.0 % Concent Red Cell Distribution Width 16.6 % 16.4 % Platelet Count 28 TH/MM3 81 TH/MM3 Mean Platelet Volume 11.0 FL 10.2 FL Neutrophils (%) (Auto) 93.4 % % Lymphocytes (%) (Auto) 3.6 % % Monocytes (%) (Auto) 2.9 % % Eosinophils (%) (Auto) 0.0 % % Basophils (%) (Auto) 0.1 % % Neutrophils # (Auto) 19.8 TH/MM3 TH/MM3 Lymphocytes # (Auto) 0.8 TH/MM3 TH/MM3 Monocytes # (Auto) 0.6 TH/MM3 TH/MM3 Eosinophils # (Auto) 0.0 TH/MM3 TH/MM3 Basophils # (Auto) 0.0 TH/MM3 TH/MM3 CBC Comment AUTO DIFF AUTO DIFF Differential Total Cells 100 100 Counted Neutrophils % (Manual) 65 % 90 % Band Neutrophils % 26 % 8 % Lymphocytes % 3 % Monocytes % 5 % 2 % Neutrophils # (Manual) 19.5 TH/MM3 21.7 TH/MM3 Metamyelocytes 1 % Differential Comment FINAL DIFF FINAL DIFF MANUAL MANUAL Platelet Estimate LOW LOW Platelet Morphology Comment NORMAL ENLARGED Stomatocytes 1+ 1+ Target Cells 1+ Laboratory Tests Test 07/11/16 07/12/16 03:30 03:35 Sodium Level 136 MEQ/L 137 MEQ/L Potassium Level 4.0 MEQ/L 4.3 MEQ/L Chloride Level 98 MEQ/L 95 MEQ/L Carbon Dioxide Level 29.9 MEQ/L 29.2 MEQ/L Anion Gap 8 MEQ/L 13 MEQ/L Blood Urea Nitrogen 52 MG/DL 102 MG/DL Creatinine 3.55 MG/DL 3.76 MG/DL Estimat Glomerular Filtration 14 ML/MIN 13 ML/MIN Rate Random Glucose 120 MG/DL 105 MG/DL Calcium Level 7.7 MG/DL 6.6 MG/DL Total Bilirubin 3.8 MG/DL 2.3 MG/DL Aspartate Amino Transf 90 U/L 46 U/L (AST/SGOT) Alanine Aminotransferase 71 U/L 60 U/L (ALT/SGPT) Alkaline Phosphatase 208 U/L 178 U/L Total Protein 5.0 GM/DL 4.9 GM/DL Albumin 0.4 GM/DL 1.5 GM/DL Protein Corrected Calcium 7.7 MG/DL Microbiology Date/Time Procedure Status Source Growth 07/10/16 11:20 Aerobic Blood Culture - Preliminary Resulted Blood Peripheral NO GROWTH IN 2 DAYS 07/10/16 11:20 Anaerobic Blood Culture - Preliminary Resulted Blood Peripheral NO GROWTH IN 2 DAYS 07/10/16 11:23 Aerobic Blood Culture - Preliminary Resulted Blood Peripheral Staph Sp Coagulase Negative 07/10/16 11:23 Anaerobic Blood Culture - Preliminary Resulted Staph Sp Coagulase Negative 07/11/16 15:30 Aerobic Blood Culture - Preliminary Resulted Blood Peripheral NO GROWTH IN 1 DAY 07/11/16 15:30 Anaerobic Blood Culture - Preliminary Resulted Blood Peripheral NO GROWTH IN 1 DAY 07/11/16 15:30 Urine Culture - Preliminary Resulted Urine Clean Catch NO GROWTH IN 24 HOURS. 07/11/16 16:00 Gram Stain - Final Resulted Sputum Endotracheal 07/11/16 16:00 Sputum Culture - Preliminary Resulted Sputum Endotracheal IMMATURE GROWTH - REINCUBATE 07/11/16 19:29 Aerobic Blood Culture - Preliminary Resulted Blood Peripheral NO GROWTH IN 1 DAY 07/11/16 19:29 Anaerobic Blood Culture - Preliminary Resulted Blood Peripheral NO GROWTH IN 1 DAY Imaging Last Impressions Head CT 07/11/16 0000 Signed Impressions: Service Date/Time: Monday, July 11, 2016 17:40 - CONCLUSION: No acute intracranial process. Hoang Kirk MD Chest X-Ray 07/11/16 0000 Signed Impressions: Service Date/Time: Monday, July 11, 2016 09:55 - CONCLUSION: Overall improvement in the aeration of the lungs. Manny Mckeon MD Central Venous Line 07/09/16 0000 Signed Impressions: Service Date/Time: Saturday, July 09, 2016 15:12 - CONCLUSION: Uncomplicated line placement as above. Procedure was done in conjunction with a right IJ Vas-Cath placement. Hoang Kirk MD Catheter Placement X-Ray 07/09/16 0000 Signed Impressions: Service Date/Time: Saturday, July 09, 2016 15:34 - CONCLUSION: Uncomplicated line placement as above. The procedure was done in conjunction with a right subclavian central venous catheter placement Hoang Kirk MD Lower Extremity Ultrasound 07/08/16 0000 Signed Impressions: Service Date/Time: Friday, July 08, 2016 18:43 - CONCLUSION: Normal examination. Iban Mann MD Abdomen/Pelvis CT 07/07/16 0000 Signed Impressions: Service Date/Time: Thursday, July 07, 2016 14:42 - CONCLUSION: Status post gastric bypass with what may be a fluid-filled gastric remnant. This may be chronic however a blind loop syndrome should be excluded. Enlarged kidneys with diffuse cortical thickening; evaluate for possible bilateral pyelonephritis. Intestinal ileus without evidence of mechanical obstruction. Ischemic bowel should be excluded. Cholelithiasis without evidence of gallbladder inflammation. Developing anasarca Scotty Shaw MD Renal Ultrasound 07/06/16 0000 Signed Impressions: Service Date/Time: Wednesday, July 06, 2016 22:23 - CONCLUSION: Normal examination. Juan Alberto Raya MD Physical Exam CONSTITUTIONAL/GENERAL: This is an adequately nourished patient, in no apparent distress. TUBES/LINES/DRAINS: SKIN: No jaundice, rashes, or lesions. Ecchymoses on upper extremities. No wounds seen anteriorly. Skin temperature appropriate. Not diaphoretic. HEAD: Atraumatic. Normocephalic. EYES: Pupils equal and round and reactive. Extraocular motions intact. Minimal scleral icterus. No injection or drainage. Fundi not examined. ENT: Hearing grossly normal. Nose without bleeding or purulent drainage. Dry mucosae . NECK: Trachea midline. Supple, nontender. No palpable thyroid enlargement or nodularity. CARDIOVASCULAR: Regular rate and rhythm without murmurs, gallops, or rubs. No JVD. Peripheral pulses symmetric. RESPIRATORY/CHEST: Symmetric, unlabored respirations. Clear to auscultation. Breath sounds equal bilaterally. No wheezes, rales, or rhonchi. GASTROINTESTINAL: Abdomen soft, non-tender, nondistended. No hepato-splenomegaly , or palpable masses. No guarding. Bowel sounds present. GENITOURINARY: Without palpable bladder distension. Quesada catheter in place with normal amount of clearer urine MUSCULOSKELETAL: Extremities without clubbing, cyanosis, or edema. No joint tenderness or effusion noted. No calf tenderness. No mottling or clubbing. NEUROLOGICAL: sedated, unresponsive PSYCHIATRIC:unable to assess Assessment & Plan Remarks Sepsis, E.coli 2/2 UTI 2/2 E.coli ARF 2/2 sepsis - HD is planned VDRF probably 2/2 ARDS in sepsis settings DIC -seem to resolve trombocytoepna, severe: resolving leukocytos - worsening Bandemia - persistent Toleartaed Keflex in the past uneventfully New + blood clx: coag neg staph bacteremia ? vascath - central line? - cont levaquine - cont CFTX - will rechk vanco level in am; redose when < 20 - fu blood clx untill final - dw Tiffany Kay MD Jul 12, 2016 17:17
[2016-07-13] VITALS (17 sets, daily range): BP systolic 123–164; BP diastolic 63–85; PULSE 61–98; RESP 15–28; TEMP 98–99.6; O2SAT 98–100
[2016-07-13] MEDS: DEXMEDETOMIDINE INJ 1,000 MCG in SODIUM CHLOR 0.9% 250 ML INJ 240 ML IV SCH ×2 (00:37→10:25)
[2016-07-13] MEDS: INSULIN NovoLIN REGULAR SUPPLEMENTAL SCALE SQ SCH ×6 (02:00→21:34)
[2016-07-13] MEDS: FUROSEMIDE 40 MG/4 ML VIAL IV PUSH SCH ×3 (02:16→18:04)
[2016-07-13 04:29] LABS: AUTOMATED NEUTROPHIL # 14.1 TH/MM3 (1.8-7.7); BASOPHIL # 0.1 TH/MM3 (0-0.2); BASOPHIL % 0.4 % (0.0-2.0); HEMO FLAGS DIFF FINAL; LYMPH % 2.9 % (9.0-44.0); LYMPHOCYTE # 0.4 TH/MM3 (1.0-4.8); MEAN CELL VOLUME 93.1 FL (80.0-100.0); MEAN CORPUSCULAR HEMOGLOBIN 31.2 PG (27.0-34.0); MEAN CORPUSCULAR HGB CONC 33.5 % (32.0-36.0); NEUT % 94.7 % (16.0-70.0); PLATELET COUNT 122 TH/MM3 (150-450); RED CELL DISTRIBUTION WIDTH 15.6 % (11.6-17.2); WHITE BLOOD COUNT 14.9 TH/MM3 (4.0-11.0)
[2016-07-13 05:06] LABS: BICARBONATE 31.2 MEQ/L (21.0-32.0); CALCIUM-PROTEIN CORRECTED 8.3 MG/DL (8.5-10.1); POTASSIUM 4.3 MEQ/L (3.5-5.1); TOTAL BILIRUBIN ADULT 2.2 MG/DL (0.2-1.0)
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
--- NOTE | 2016-07-13 10:21 | HHI.IDPN ---
Subjective Subjective Remarks ID COVERAGE 46 y/o female admitted for evaluation of back pain Has E coli urosepsis No obstruction on imaging studies Has developed severe DIC, thrombocytopenia, renal failure, now on HD Also intubated 07/09 Has developed now worsening leukocytosis - today better has low grade temps On precedex Awake on CPAP and following commands BP ok Antibiotics Rocephin Levaquin Vancomycin - per level Lines RSC TLC RIJ Vascath Past Medical History Reviewed Allergies: Coded Allergies: Ibuprofen (Unverified Allergy, Severe, S/P GASTRIC BYPASS, 07/06/16) Penicillin (Verified Allergy, Severe, 07/06/16) Toradol (Unverified Allergy, Severe, S/P GASTRIC BYPASS, 07/06/16) Objective . Vital Signs Date Time Temp Pulse Resp B/P Pulse Ox O2 Delivery O2 Flow Rate FiO2 07/13/16 09:55 35 07/13/16 09:55 99 35 07/13/16 06:00 65 07/13/16 04:18 99 35 07/13/16 04:00 74 07/13/16 04:00 99.6 74 28 129/77 100 07/13/16 04:00 40 07/13/16 02:00 67 07/13/16 01:15 99 40 07/13/16 00:00 64 07/13/16 00:00 40 07/13/16 00:00 98.0 64 18 135/74 98 07/12/16 22:12 99 40 07/12/16 22:00 66 07/12/16 20:00 69 07/12/16 20:00 40 07/12/16 20:00 98.8 70 18 115/69 98 07/12/16 19:22 98 40 07/12/16 18:00 75 07/12/16 17:15 97 40 07/12/16 16:00 40 07/12/16 16:00 81 07/12/16 16:00 100.1 81 22 111/73 99 07/12/16 14:00 75 07/12/16 12:02 98 40 07/12/16 12:00 96 07/12/16 12:00 100.5 96 20 116/69 98 07/12/16 12:00 40 07/12/16 07/12/16 07/13/16 15:00 23:00 07:00 Intake Total 273 ml 579 ml 450 ml Output Total 850 ml 2425 ml 525 ml Balance -577 ml -1846 ml -75 ml IV Total 64 ml 258 ml 203 ml Tube Feeding 209 ml 261 ml 247 ml Other 60 ml Output Urine Total 850 ml 425 ml 525 ml Hemodialysis 2000 ml # Bowel Movements 0 0 1 . Laboratory Tests Test 07/12/16 07/13/16 03:35 04:00 White Blood Count 22.1 TH/MM3 14.9 TH/MM3 Red Blood Count 2.93 MIL/MM3 3.00 MIL/MM3 Hemoglobin 9.1 GM/DL 9.4 GM/DL Hematocrit 26.8 % 28.0 % Mean Corpuscular Volume 91.6 FL 93.1 FL Mean Corpuscular Hemoglobin 31.1 PG 31.2 PG Mean Corpuscular Hemoglobin 34.0 % 33.5 % Concent Red Cell Distribution Width 16.4 % 15.6 % Platelet Count 81 TH/MM3 122 TH/MM3 Mean Platelet Volume 10.2 FL 10.4 FL Neutrophils (%) (Auto) % 94.7 % Lymphocytes (%) (Auto) % 2.9 % Monocytes (%) (Auto) % 2.0 % Eosinophils (%) (Auto) % 0.0 % Basophils (%) (Auto) % 0.4 % Neutrophils # (Auto) TH/MM3 14.1 TH/MM3 Lymphocytes # (Auto) TH/MM3 0.4 TH/MM3 Monocytes # (Auto) TH/MM3 0.3 TH/MM3 Eosinophils # (Auto) TH/MM3 0.0 TH/MM3 Basophils # (Auto) TH/MM3 0.1 TH/MM3 CBC Comment AUTO DIFF DIFF FINAL Differential Total Cells 100 Counted Neutrophils % (Manual) 90 % Band Neutrophils % 8 % Monocytes % 2 % Neutrophils # (Manual) 21.7 TH/MM3 Differential Comment FINAL DIFF MANUAL Platelet Estimate LOW Platelet Morphology Comment ENLARGED Target Cells 1+ Stomatocytes 1+ Laboratory Tests Test 07/12/16 07/13/16 03:35 04:00 Sodium Level 137 MEQ/L 140 MEQ/L Potassium Level 4.3 MEQ/L 4.3 MEQ/L Chloride Level 95 MEQ/L 99 MEQ/L Carbon Dioxide Level 29.2 MEQ/L 31.2 MEQ/L Anion Gap 13 MEQ/L 10 MEQ/L Blood Urea Nitrogen 102 MG/DL 78 MG/DL Creatinine 3.76 MG/DL 2.54 MG/DL Estimat Glomerular Filtration 13 ML/MIN 20 ML/MIN Rate Random Glucose 105 MG/DL 183 MG/DL Calcium Level 6.6 MG/DL 7.2 MG/DL Protein Corrected Calcium 7.7 MG/DL 8.3 MG/DL Total Bilirubin 2.3 MG/DL 2.2 MG/DL Aspartate Amino Transf 46 U/L 36 U/L (AST/SGOT) Alanine Aminotransferase 60 U/L 54 U/L (ALT/SGPT) Alkaline Phosphatase 178 U/L 153 U/L Total Protein 4.9 GM/DL 5.1 GM/DL Albumin 1.5 GM/DL 1.6 GM/DL Microbiology Date/Time Procedure Status Source Growth 07/10/16 11:20 Aerobic Blood Culture - Preliminary Resulted Blood Peripheral NO GROWTH IN 2 DAYS 07/10/16 11:20 Anaerobic Blood Culture - Preliminary Resulted Blood Peripheral NO GROWTH IN 2 DAYS 07/10/16 11:23 Aerobic Blood Culture - Preliminary Resulted Blood Peripheral Staph Sp Coagulase Negative 07/10/16 11:23 Anaerobic Blood Culture - Preliminary Resulted Staph Sp Coagulase Negative 07/11/16 15:30 Aerobic Blood Culture - Preliminary Resulted Blood Peripheral NO GROWTH IN 1 DAY 07/11/16 15:30 Anaerobic Blood Culture - Preliminary Resulted Blood Peripheral NO GROWTH IN 1 DAY 07/11/16 15:30 Urine Culture - Preliminary Resulted Urine Clean Catch NO GROWTH IN 24 HOURS. 07/11/16 16:00 Gram Stain - Final Complete Sputum Endotracheal 07/11/16 16:00 Sputum Culture - Final Complete Sputum Endotracheal 07/11/16 19:29 Aerobic Blood Culture - Preliminary Resulted Blood Peripheral NO GROWTH IN 1 DAY 07/11/16 19:29 Anaerobic Blood Culture - Preliminary Resulted Blood Peripheral NO GROWTH IN [address] 07/11/16 0000 Signed Impressions: Service Date/Time: Monday, July 11, 2016 17:40 - CONCLUSION: No acute intracranial process. Hoang Kirk MD Chest X-Ray 07/11/16 0000 Signed Impressions: Service Date/Time: Monday, July 11, 2016 09:55 - CONCLUSION: Overall improvement in the aeration of the lungs. Manny Mckeon MD Central Venous Line 07/09/16 0000 Signed Impressions: Service Date/Time: Saturday, July 09, 2016 15:12 - CONCLUSION: Uncomplicated line placement as above. Procedure was done in conjunction with a right IJ Vas-Cath placement. Hoang Kirk MD Catheter Placement X-Ray 07/09/16 0000 Signed Impressions: Service Date/Time: Saturday, July 09, 2016 15:34 - CONCLUSION: Uncomplicated line placement as above. The procedure was done in conjunction with a right subclavian central venous catheter placement Hoang Kirk MD Lower Extremity Ultrasound 07/08/16 0000 Signed Impressions: Service Date/Time: Friday, July 08, 2016 18:43 - CONCLUSION: Normal examination. Iban Mann MD Abdomen/Pelvis CT 07/07/16 0000 Signed Impressions: Service Date/Time: Thursday, July 07, 2016 14:42 - CONCLUSION: Status post gastric bypass with what may be a fluid-filled gastric remnant. This may be chronic however a blind loop syndrome should be excluded. Enlarged kidneys with diffuse cortical thickening; evaluate for possible bilateral pyelonephritis. Intestinal ileus without evidence of mechanical obstruction. Ischemic bowel should be excluded. Cholelithiasis without evidence of gallbladder inflammation. Developing anasarca Scotty Shaw MD Renal Ultrasound 07/06/16 0000 Signed Impressions: Service Date/Time: Wednesday, July 06, 2016 22:23 - CONCLUSION: Normal examination. Juan Alberto Raya MD Physical Exam GENERAL: Awake, responsive, NAD on CPAP SKIN: No jaundice, rashes, or lesions. Ecchymoses on upper extremities. Warm HEAD: Atraumatic. Normocephalic. EYES: Pupils equal and round and reactive. Minimal scleral icterus. No injection or drainage. ENT: Nose without bleeding or purulent drainage Orally intubated NECK: Trachea midline. Supple, nontender. Line ok CARDIOVASCULAR: Regular rate and rhythm without murmurs, gallops, or rubs. No JVD. Peripheral pulses symmetric. RESPIRATORY/CHEST: Coarse BS bilaterally ABDOMEN: Soft and not distended, not tender, BS (+), no organomegaly GENITOURINARY: Quesada catheter in place with clear urine MUSCULOSKELETAL: Extremities without clubbing, cyanosis, or edema. No joint effusion noted. No calf tenderness. No mottling or clubbing. NEUROLOGICAL: Awake and following commands PSYCHIATRIC:unable to assess LINE: NO evidence of infection Assessment & Plan Remarks Sepsis, E.coli due UTI ARF due sepsis - on HD Respiratory failure, ARDS in sepsis settings DIC -seem to resolve Thrombocytopenia, severe: resolving Leukocytosis - better today Tolerated Keflex in the past uneventfully New + blood clx: coag neg staph bacteremia - ?real or contaminant PLAN Continue Levaquin Continue Rocephin Give dose of Vanco Follow new C/S Follow CBC Monitor progress Weaning per CCM Edna Hendrickson MD Jul 13, 2016 10:21
[2016-07-13] MEDS: methylPREDNISolone SOD SUCC 40 MG/1 ML VIAL IV SCH ×2 (10:25→20:31)
[2016-07-13] MEDS: DILTIAZEM HCL 60 MG TAB PO SCH ×4 (10:26→20:31)
[2016-07-13] MEDS: DOCUSATE SODIUM 100 MG/10 ML UDC PO SCH ×2 (10:27→20:31)
[2016-07-13] MEDS: SENNOSIDES SYRUP 8.8 MG/5 ML CUP PO SCH (10:27)
[2016-07-13] MEDS: SODIUM CHLORIDE 0.9% FLUSH 10 ML FLUSH IVF PRN (10:28)
[2016-07-13] MEDS: SODIUM CHLORIDE 0.9% FLUSH 10 ML FLUSH IVF SCH (10:28)
[2016-07-13] MEDS ORDERED: VANCOMYCIN INJ 1,000 MG in SODIUM CHLOR 0.9% 250 ML INJ 250 ML IV ONE (11:00)
[2016-07-13] MEDS ORDERED: VANCOMYCIN INJ 1,250 MG in SODIUM CHLOR 0.9% 250 ML INJ 250 ML IV ONE (13:00)
[2016-07-13] MEDS: LEVOFLOXACIN 500 MG PREMIX INJ 100 ML IV SCH (13:52)
--- NOTE | 2016-07-13 14:43 | HHI.NPPN ---
Subjective General Problems: Anemia Renal Failure: Acute History of Present Illness 46-year-old female with a past medical history of morbid obesity, anxiety, history of urethral stenosis came to the hospital with back pain and dark urine. I was called to see the patient for elevated BUN and creatinine. The patient previously has creatinine of 0.4-0.5 this was in 2014. Additional Remarks Patient is extubated and now having BM. Review of Systems General Constitutional: Fatigue Cardiovascular Cardiac: Palpitations, LEA Objective Data Data 07/12/16 07/13/16 19:00 07:00 Intake Total 273 ml 1029 ml Output Total 2850 ml 950 ml Balance -2577 ml 79 ml IV Total 64 ml 461 ml Tube Feeding 209 ml 508 ml Other 60 ml Output Urine Total 850 ml 950 ml Hemodialysis 2000 ml # Bowel Movements 0 1 Vital Signs Date Time Temp Pulse Resp B/P Pulse Ox O2 Delivery O2 Flow Rate FiO2 07/13/16 09:55 35 07/13/16 09:55 99 35 07/13/16 06:00 65 07/13/16 04:18 99 35 07/13/16 04:00 74 07/13/16 04:00 99.6 74 28 129/77 100 07/13/16 04:00 40 07/13/16 02:00 67 07/13/16 01:15 99 40 07/13/16 00:00 64 07/13/16 00:00 40 07/13/16 00:00 98.0 64 18 135/74 98 07/12/16 22:12 99 40 07/12/16 22:00 66 07/12/16 20:00 69 07/12/16 20:00 40 07/12/16 20:00 98.8 70 18 115/69 98 07/12/16 19:22 98 40 07/12/16 18:00 75 07/12/16 17:15 97 40 07/12/16 16:00 40 07/12/16 16:00 81 07/12/16 16:00 100.1 81 22 111/73 99 -: 07/13/16 0400 07/13/16 0400 Physical Exam General Appearance: No Acute Distress, Comfortable Eyes Eye Exam: Pupils Equal Neck Neck Exam: Neck Supple Pulmonary Resp Exam: Breath Sounds Equal, No Distress, Rhonchi, Decreased Bases Cardiology CV Exam: Tachycardia Gastrointestinal/Abdomen GI Exam: Soft, Non-Tender, Bowel Sounds Present Extremeties Extremities Exam: Trace Edema Neurologic Neuro Exam: Alert, Awake, Oriented Psychiatric Psych Exam: Appropriate Responses Assessment/Plan Assessment Summary: MICHAEL/Acute Renal Failure Problem List: (1) Sinus tachycardia (2) Thrombocytopenia (3) Hyponatremia (4) UTI (lower urinary tract infection) (5) Bandemia (6) Elevated LFTs (7) Lactic acidosis (8) Sepsis (9) Acute kidney injury Plan Patient has low urine out put. BUN and Creatinine increased. HR is better and the BP is stable. Peripheral smear results noted. Most likely has MICHAEL related to sepsis. MELCHOR and ANCA negative. Only C3 slightly low. BC growing E.Coli ID following. platelets remain low. Started on HD. Last HD done yesterday and 2 liters removed. Urine out put is better. Continue antibiotics, follow urine out put and BMP. Watch for renal recovery. Fernie Vega MD Jul 13, 2016 14:43
[2016-07-13] MEDS: cefTRIAXone INJ 1,000 MG in SODIUM CHLORIDE 0.9% INJ 100 ML IV SCH (18:05)
[2016-07-13] MEDS: MORPHINE SULFATE 4 MG/ML INJ IV PUSH PRN ×2 (18:16→21:34)
[2016-07-13] MEDS: SODIUM CHLORIDE 0.9% FLUSH 10 ML FLUSH IV FLUSH PRN (20:31)
[2016-07-14] VITALS (13 sets, daily range): BP systolic 126–158; BP diastolic 60–72; PULSE 81–101; RESP 12–24; TEMP 97.7–98.8; O2SAT 94–100
[2016-07-14] MEDS: MORPHINE SULFATE 4 MG/ML INJ IV PUSH PRN ×5 (00:21→22:36)
[2016-07-14] MEDS: INSULIN NovoLIN REGULAR SUPPLEMENTAL SCALE SQ SCH ×6 (02:00→22:00)
[2016-07-14] MEDS: FUROSEMIDE 40 MG/4 ML VIAL IV PUSH SCH ×3 (02:49→18:00)
[2016-07-14 06:56] LABS: AUTOMATED NEUTROPHIL # 14.3 TH/MM3 (1.8-7.7); BASOPHIL # 0.1 TH/MM3 (0-0.2); BASOPHIL % 0.4 % (0.0-2.0); HEMATOCRIT 26.2 % (35.0-46.0); HEMO FLAGS DIFF FINAL; LYMPH % 3.6 % (9.0-44.0); LYMPHOCYTE # 0.5 TH/MM3 (1.0-4.8); MEAN CELL VOLUME 93.2 FL (80.0-100.0); MEAN CORPUSCULAR HEMOGLOBIN 30.9 PG (27.0-34.0); MEAN CORPUSCULAR HGB CONC 33.1 % (32.0-36.0); MONO % 2.2 % (0.0-8.0); NEUT % 93.8 % (16.0-70.0); PLATELET COUNT 121 TH/MM3 (150-450); RED BLOOD COUNT 2.81 MIL/MM3 (4.00-5.30); WHITE BLOOD COUNT 15.3 TH/MM3 (4.0-11.0)
[2016-07-14 07:17] LABS: BICARBONATE 27.1 MEQ/L (21.0-32.0); CALCIUM-PROTEIN CORRECTED 8.2 MG/DL (8.5-10.1); POTASSIUM 3.9 MEQ/L (3.5-5.1); TOTAL BILIRUBIN ADULT 1.9 MG/DL (0.2-1.0)
[2016-07-14] MEDS: methylPREDNISolone SOD SUCC 40 MG/1 ML VIAL IV SCH ×2 (08:11→22:21)
[2016-07-14] MEDS: DILTIAZEM HCL 60 MG TAB PO SCH ×4 (08:12→22:21)
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
[2016-07-14] MEDS: SENNOSIDES SYRUP 8.8 MG/5 ML CUP PO SCH (09:00)
[2016-07-14] MEDS: DOCUSATE SODIUM 100 MG/10 ML UDC PO SCH ×2 (09:00→22:21)
[2016-07-14] MEDS: SODIUM CHLORIDE 0.9% FLUSH 10 ML FLUSH IVF SCH (09:00)
--- NOTE | 2016-07-14 11:31 | HHI.NPPN ---
Subjective General Problems: Anemia Renal Failure: Acute History of Present Illness 46-year-old female with a past medical history of morbid obesity, anxiety, history of urethral stenosis came to the hospital with back pain and dark urine. I was called to see the patient for elevated BUN and creatinine. The patient previously has creatinine of 0.4-0.5 this was in 2014. Additional Remarks Patient is alert, no SOB, Review of Systems General Constitutional: Fatigue Cardiovascular Cardiac: Palpitations, LEA Objective Data Data 07/13/16 07/14/16 19:00 07:00 Intake Total 470 ml 1600 ml Output Total 600 ml 2050 ml Balance -130 ml -450 ml Intake Oral 1600 ml IV Total 300 ml Tube Feeding 170 ml Output Urine Total 600 ml 2050 ml # Bowel Movements 3 0 Vital Signs Date Time Temp Pulse Resp B/P Pulse Ox O2 Delivery O2 Flow Rate FiO2 07/14/16 09:15 100 Nasal Cannula 2.00 07/14/16 06:00 81 07/14/16 05:12 20 07/14/16 04:00 98.6 85 17 139/72 97 07/14/16 04:00 85 07/14/16 02:00 88 07/14/16 00:00 97 07/14/16 00:00 98.4 97 14 137/68 98 07/14/16 00:00 Nasal Cannula 2.00 07/13/16 22:00 97 07/13/16 21:38 98 Nasal Cannula 2.00 07/13/16 20:00 Nasal Cannula 2.00 07/13/16 20:00 98.6 95 20 127/63 99 07/13/16 19:30 97 07/13/16 18:00 98 07/13/16 16:00 86 07/13/16 16:00 98.7 86 18 127/70 100 07/13/16 14:00 97 07/13/16 12:00 78 07/13/16 12:00 99.0 78 15 123/71 99 07/13/16 12:00 40 -: 07/14/16 0500 07/14/16 0500 Physical Exam General Appearance: No Acute Distress, Comfortable Eyes Eye Exam: Pupils Equal Neck Neck Exam: Neck Supple Pulmonary Resp Exam: Breath Sounds Equal, No Distress, Rhonchi, Decreased Bases Cardiology CV Exam: Tachycardia Gastrointestinal/Abdomen GI Exam: Soft, Non-Tender, Bowel Sounds Present Extremeties Extremities Exam: Trace Edema Neurologic Neuro Exam: Alert, Awake, Oriented Psychiatric Psych Exam: Appropriate Responses Assessment/Plan Assessment Summary: MICHAEL/Acute Renal Failure Problem List: (1) Sinus tachycardia (2) Thrombocytopenia (3) Hyponatremia (4) UTI (lower urinary tract infection) (5) Bandemia (6) Elevated LFTs (7) Lactic acidosis (8) Sepsis (9) Acute kidney injury Plan Patient has low urine out put. BUN and Creatinine increased. HR is better and the BP is stable. Peripheral smear results noted. Most likely has MICHAEL related to sepsis. MELCHOR and ANCA negative. Only C3 slightly low. BC growing E.Coli ID following. platelets remain low. Started on HD. Last HD done Sat. Urine out put is better. Creatinine almost same. Follow urine out put and BMP in AM. HD tomorrow if needed. Fernie Vega MD Jul 14, 2016 11:31
--- NOTE | 2016-07-14 15:16 | PD.ONC.PN ---
Subjective Subjective Remarks Afebrile overnight. Patient asking to take a shower. She wants someone to wash her hair. She says she has been trying to eat so she can get better and go home. No bleeding. Objective Data Date Time Temp Pulse Resp B/P Pulse Ox O2 Delivery O2 Flow Rate FiO2 07/14/16 09:15 100 Nasal Cannula 2.00 07/14/16 06:00 81 07/14/16 05:12 20 07/14/16 04:00 98.6 85 17 139/72 97 07/14/16 04:00 85 07/14/16 02:00 88 07/14/16 00:00 97 07/14/16 00:00 98.4 97 14 137/68 98 07/14/16 00:00 Nasal Cannula 2.00 07/13/16 22:00 97 07/13/16 21:38 98 Nasal Cannula 2.00 07/13/16 20:00 Nasal Cannula 2.00 07/13/16 20:00 98.6 95 20 127/63 99 07/13/16 19:30 97 07/13/16 18:00 98 07/13/16 16:00 86 07/13/16 16:00 98.7 86 18 127/70 100 07/14/16 07/14/16 07/14/16 07:00 15:00 23:00 Intake Total 400 ml Output Total 700 ml Balance -300 ml Result Diagram: 07/14/16 0500 07/14/16 0500 Laboratory Results Laboratory Tests Test 07/14/16 05:00 White Blood Count 15.3 TH/MM3 Red Blood Count 2.81 MIL/MM3 Hemoglobin 8.7 GM/DL Hematocrit 26.2 % Mean Corpuscular Volume 93.2 FL Mean Corpuscular Hemoglobin 30.9 PG Mean Corpuscular Hemoglobin 33.1 % Concent Red Cell Distribution Width 15.0 % Platelet Count 121 TH/MM3 Mean Platelet Volume 11.0 FL Neutrophils (%) (Auto) 93.8 % Lymphocytes (%) (Auto) 3.6 % Monocytes (%) (Auto) 2.2 % Eosinophils (%) (Auto) 0.0 % Basophils (%) (Auto) 0.4 % Neutrophils # (Auto) 14.3 TH/MM3 Lymphocytes # (Auto) 0.5 TH/MM3 Monocytes # (Auto) 0.3 TH/MM3 Eosinophils # (Auto) 0.0 TH/MM3 Basophils # (Auto) 0.1 TH/MM3 CBC Comment DIFF FINAL Differential Comment Sodium Level 131 MEQ/L Potassium Level 3.9 MEQ/L Chloride Level 90 MEQ/L Carbon Dioxide Level 27.1 MEQ/L Anion Gap 14 MEQ/L Blood Urea Nitrogen 112 MG/DL Creatinine 2.58 MG/DL Estimat Glomerular Filtration 20 ML/MIN Rate Random Glucose 112 MG/DL Calcium Level 7.0 MG/DL Protein Corrected Calcium 8.2 MG/DL Total Bilirubin 1.9 MG/DL Aspartate Amino Transf 65 U/L (AST/SGOT) Alanine Aminotransferase 75 U/L (ALT/SGPT) Alkaline Phosphatase 142 U/L Total Protein 4.9 GM/DL Albumin 1.6 GM/DL Random Vancomycin Level 28.9 COMMENT Culture Results Microbiology Date/Time Procedure Status Source Growth 07/11/16 15:30 Aerobic Blood Culture - Preliminary Resulted Blood Peripheral NO GROWTH IN 3 DAYS 07/11/16 15:30 Anaerobic Blood Culture - Preliminary Resulted Blood Peripheral NO GROWTH IN 3 DAYS 07/11/16 15:30 Urine Culture - Final Complete Urine Clean Catch Love [place] 07/11/16 16:00 Gram Stain - Final Complete Sputum Endotracheal 07/11/16 16:00 Sputum Culture - Final Complete Sputum Endotracheal 07/11/16 19:29 Aerobic Blood Culture - Preliminary Resulted Blood Peripheral NO GROWTH IN 3 DAYS 07/11/16 19:29 Anaerobic Blood Culture - Preliminary Resulted Blood Peripheral NO GROWTH IN 3 DAYS Administered Medications Medications (Trade) Dose Ordered Sig/Dulce Route PRN Reason Start Time Stop Time Status Last Admin Dose Admin Morphine Sulfate (Morphine Inj) 2 mg Q3H PRN IV PUSH pain level 3-10 07/06/16 21:15 07/14/16 08:27 Lorazepam (Ativan Inj) 1 mg Q6H PRN IV PUSH anxiety 07/06/16 21:15 07/06/16 21:44 Dextrose (D50w (Vial) Inj) 25 ml UNSCH PRN IV PUSH HYPOGLYCEMIA-SEE COMMENTS 07/08/16 04:00 07/08/16 09:35 Insulin Human Regular (NovoLIN R SUPPLEMENTAL SCALE) 1 Q4H SQ 07/08/16 10:00 07/13/16 15:05 Diltiazem HCl (Cardizem) 60 mg QID PO 07/08/16 10:00 07/14/16 08:12 Furosemide (Lasix Inj) 40 mg Q8H IV PUSH 07/08/16 18:00 07/14/16 08:12 Methylprednisolone Sodium Succinate 40 mg 40 mg Q12H IV 07/08/16 21:00 07/14/16 08:11 Sodium Chloride (NS 1000 ml Inj) 1,000 ml @ 0 mls/hr Q0M PRN IV For Prime & Rinse Back 07/09/16 11:18 07/12/16 12:52 Sodium Chloride (NS Flush) 5 ml UNSCH PRN IV FLUSH WITH DIALYSIS 07/09/16 11:30 07/13/16 20:31 Heparin Sodium (Porcine) (Heparin Inj) UNSCH PRN .XX WITH DIALYSIS 07/09/16 11:30 07/12/16 12:52 Gentamicin Sulfate (Gentamicin (Dialysis) Inj) 20 mg UNSCH PRN IV WITH DIALYSIS 07/09/16 11:30 07/12/16 12:52 Acetaminophen 650 mg 650 mg UNSCH PRN PO for headach, pain, temp > 101F 07/09/16 11:30 07/11/16 14:11 Levofloxacin/ Dextrose (Levaquin 500 Mg Premix Inj) 100 ml @ 100 mls/hr Q48H IV 07/09/16 14:00 07/13/16 13:52 Sodium Chloride (NS Flush) UNSCH PRN IVF SEE PROTOCOL 07/09/16 16:45 07/13/16 10:28 Sodium Chloride DAILY IVF 07/10/16 09:00 07/13/16 10:28 Ceftriaxone Sodium/Sodium Chloride (Rocephin Inj/NS Inj) 100 ml @ 200 mls/hr Q24H IV 07/09/16 18:00 07/13/16 18:05 Docusate Sodium (Colace Liq) 100 mg Q12HR PO 07/13/16 09:00 07/13/16 20:31 Sennosides (Senna Liq) 8.8 mg DAILY PO 07/13/16 09:00 07/13/16 10:27 Objective Remarks GENERAL: Middle aged female, sitting up in bed in nad. SKIN: Warm and dry. central line, right neck, no bleeding. HEAD: Normocephalic. EYES: No injection or drainage. NECK: Supple, trachea midline. CARDIOVASCULAR: +S1/S2 RESPIRATORY: diminished at bases, anterior kim with occasional rhonchi GASTROINTESTINAL: Abdomen soft nondistended. EXTREMITIES: No cyanosis NEUROLOGICAL: awake and alert, normal speech. moving all extremities. Assessment/Plan Problem List: (1) Thrombocytopenia Status: Acute Plan: 07/14: platelets improved to 121K today. no bleeding. 07/12: Platelets 81k today. No bleeding per RN. Continue to monitor coags, CBC. 07/11: platelets improved to 28K today without transfusion. will check coags. 07/10: coags improving. monitor CBC, coags. no transfusion today. 07/08: coags remain prolonged. thrombocytopenia likely d/t consumption with sepsis. will order u/s LE to r/o DVT. expect thrombocytopenia to resolve as sepsis resolves. --most likely due to sepsis syndrome. --other differential is TTP versus HUS versus ITP versus HIT. --peripheral blood smear reviewed with pathologist-->Significant numbers of red cell fragment schistocytes are NOT present and the microangiopathic hemolytic process is not favored. L --LDH is high at 666 which I believe is due to liver injury and not from the hemolysis. Therefore, I do not think that we are dealing with either TTP or HUS. --if platelet count drops to less than 10, recommend transfusion of platelets --LE U/S shows no DVT Assessment 46y/o female with acute thrombocytopenia. h/o Morbid obesity, s/p gastric bypass Anxiety Ureteral stenosis Attending Statement pt is extubated. Eating lunch. ARF is improving.Off of HD plat are coming up. A/B per ID d/w Dawna Landin Jul 14, 2016 15:16 Kalpana Logan MD Jul 15, 2016 06:54
--- NOTE | 2016-07-14 18:59 | HHI.IDPN ---
Subjective Subjective Remarks doing good extubated UOP is good Antibiotics Rocephin Levaquin Vancomycin - per level Lines [facility] Past Medical History Reviewed Allergies: Coded Allergies: Ibuprofen (Unverified Allergy, Severe, S/P GASTRIC BYPASS, 07/06/16) Penicillin (Verified Allergy, Severe, 07/06/16) Toradol (Unverified Allergy, Severe, S/P GASTRIC BYPASS, 07/06/16) Objective . Vital Signs Date Time Temp Pulse Resp B/P Pulse Ox O2 Delivery O2 Flow Rate FiO2 07/14/16 09:15 100 Nasal Cannula 2.00 07/14/16 08:32 16 07/14/16 06:00 81 07/14/16 04:00 98.6 85 17 139/72 97 07/14/16 04:00 85 07/14/16 02:00 88 07/14/16 00:00 97 07/14/16 00:00 98.4 97 14 137/68 98 07/14/16 00:00 Nasal Cannula 2.00 07/13/16 22:00 97 07/13/16 21:38 98 Nasal Cannula 2.00 07/13/16 20:00 Nasal Cannula 2.00 07/13/16 20:00 98.6 95 20 127/63 99 07/13/16 19:30 97 07/13/16 07/13/16 07/14/16 15:00 23:00 07:00 Intake Total 470 ml 1200 ml 400 ml Output Total 600 ml 1350 ml 700 ml Balance -130 ml -150 ml -300 ml Intake Oral 1200 ml 400 ml IV Total 300 ml Tube Feeding 170 ml Output Urine Total 600 ml 1350 ml 700 ml # Bowel Movements 3 0 . Laboratory Tests Test 07/13/16 07/14/16 04:00 05:00 White Blood Count 14.9 TH/MM3 15.3 TH/MM3 Red Blood Count 3.00 MIL/MM3 2.81 MIL/MM3 Hemoglobin 9.4 GM/DL 8.7 GM/DL Hematocrit 28.0 % 26.2 % Mean Corpuscular Volume 93.1 FL 93.2 FL Mean Corpuscular Hemoglobin 31.2 PG 30.9 PG Mean Corpuscular Hemoglobin 33.5 % 33.1 % Concent Red Cell Distribution Width 15.6 % 15.0 % Platelet Count 122 TH/MM3 121 TH/MM3 Mean Platelet Volume 10.4 FL 11.0 FL Neutrophils (%) (Auto) 94.7 % 93.8 % Lymphocytes (%) (Auto) 2.9 % 3.6 % Monocytes (%) (Auto) 2.0 % 2.2 % Eosinophils (%) (Auto) 0.0 % 0.0 % Basophils (%) (Auto) 0.4 % 0.4 % Neutrophils # (Auto) 14.1 TH/MM3 14.3 TH/MM3 Lymphocytes # (Auto) 0.4 TH/MM3 0.5 TH/MM3 Monocytes # (Auto) 0.3 TH/MM3 0.3 TH/MM3 Eosinophils # (Auto) 0.0 TH/MM3 0.0 TH/MM3 Basophils # (Auto) 0.1 TH/MM3 0.1 TH/MM3 CBC Comment DIFF FINAL DIFF FINAL Differential Comment Laboratory Tests Test 07/13/16 07/14/16 04:00 05:00 Sodium Level 140 MEQ/L 131 MEQ/L Potassium Level 4.3 MEQ/L 3.9 MEQ/L Chloride Level 99 MEQ/L 90 MEQ/L Carbon Dioxide Level 31.2 MEQ/L 27.1 MEQ/L Anion Gap 10 MEQ/L 14 MEQ/L Blood Urea Nitrogen 78 MG/DL 112 MG/DL Creatinine 2.54 MG/DL 2.58 MG/DL Estimat Glomerular Filtration 20 ML/MIN 20 ML/MIN Rate Random Glucose 183 MG/DL 112 MG/DL Calcium Level 7.2 MG/DL 7.0 MG/DL Protein Corrected Calcium 8.3 MG/DL 8.2 MG/DL Total Bilirubin 2.2 MG/DL 1.9 MG/DL Aspartate Amino Transf 36 U/L 65 U/L (AST/SGOT) Alanine Aminotransferase 54 U/L 75 U/L (ALT/SGPT) Alkaline Phosphatase 153 U/L 142 U/L Total Protein 5.1 GM/DL 4.9 GM/DL Albumin 1.6 GM/DL 1.6 GM/DL Microbiology Date/Time Procedure Status Source Growth 07/11/16 19:29 Aerobic Blood Culture - Preliminary Resulted Blood Peripheral NO GROWTH IN 3 DAYS 07/11/16 19:29 Anaerobic Blood Culture - Preliminary Resulted Blood Peripheral NO GROWTH IN 3 DAYS Imaging Last Impressions Liver Ultrasound 07/11/16 0000 Signed Impressions: Service Date/Time: Monday, July 11, 2016 20:14 - CONCLUSION: 1. Small gallstone in the region of the gallbladder neck and mild gallbladder wall thickening. 2. Common bile duct is slightly prominent 7 mm. Warren Mayorga MD Head CT 07/11/16 0000 Signed Impressions: Service Date/Time: Monday, July 11, 2016 17:40 - CONCLUSION: No acute intracranial process. Hoang Kirk MD Chest X-Ray 07/11/16 0000 Signed Impressions: Service Date/Time: Monday, July 11, 2016 09:55 - CONCLUSION: Overall improvement in the aeration of the lungs. Manny Mckeon MD Central Venous Line 07/09/16 0000 Signed Impressions: Service Date/Time: Saturday, July 09, 2016 15:12 - CONCLUSION: Uncomplicated line placement as above. Procedure was done in conjunction with a right IJ Vas-Cath placement. Hoang Kirk MD Catheter Placement X-Ray 07/09/16 0000 Signed Impressions: Service Date/Time: Saturday, July 09, 2016 15:34 - CONCLUSION: Uncomplicated line placement as above. The procedure was done in conjunction with a right subclavian central venous catheter placement Hoang Kirk MD Lower Extremity Ultrasound 07/08/16 0000 Signed Impressions: Service Date/Time: Friday, July 08, 2016 18:43 - CONCLUSION: Normal examination. Iban Mann MD Abdomen/Pelvis CT 07/07/16 0000 Signed Impressions: Service Date/Time: Thursday, July 07, 2016 14:42 - CONCLUSION: Status post gastric bypass with what may be a fluid-filled gastric remnant. This may be chronic however a blind loop syndrome should be excluded. Enlarged kidneys with diffuse cortical thickening; evaluate for possible bilateral pyelonephritis. Intestinal ileus without evidence of mechanical obstruction. Ischemic bowel should be excluded. Cholelithiasis without evidence of gallbladder inflammation. Developing anasarca Scotty Shaw MD Renal Ultrasound 07/06/16 0000 Signed Impressions: Service Date/Time: Wednesday, July 06, 2016 22:23 - CONCLUSION: Normal examination. Juan Alberto Raya MD Physical Exam GENERAL: Awake, responsive, SKIN: No jaundice, rashes, or lesions. Ecchymoses on upper extremities. Warm CARDIOVASCULAR: Regular rate and rhythm without murmurs, gallops, or rubs. No JVD. Peripheral pulses symmetric. RESPIRATORY/CHEST: Coarse BS bilaterally ABDOMEN: Soft and not distended, not tender, BS (+), no organomegaly GENITOURINARY: Quesada catheter in place with clear urine MUSCULOSKELETAL: Extremities without clubbing, cyanosis, or edema. NEUROLOGICAL: Awake and following commands normal speech LINE: NO evidence of infection Assessment & Plan Remarks Sepsis, E.coli due UTI ARF due sepsis - off HD; non oliguric Respiratory failure, ARDS in sepsis settings DIC -seem to resolve Thrombocytopenia, resolved Leukocytosis - better today Tolerated Keflex in the past uneventfully coag neg staph bacteremia, different morpjhologies - likely contaminant PLAN Continue Levaquin - anticipate 14 days of abx total dc Rocephin dc Vanco Follow new C/S Follow CBC Monitor progress Tiffany Lang MD Jul 14, 2016 18:59
[2016-07-15] VITALS (13 sets, daily range): BP systolic 99–160; BP diastolic 60–95; PULSE 72–105; RESP 14–22; TEMP 97.7–99; O2SAT 95–99
[2016-07-15] MEDS: INSULIN NovoLIN REGULAR SUPPLEMENTAL SCALE SQ SCH ×2 (02:00→06:00)
[2016-07-15] MEDS: MORPHINE SULFATE 4 MG/ML INJ IV PUSH PRN ×2 (03:50→08:47)
[2016-07-15] MEDS: FUROSEMIDE 40 MG/4 ML VIAL IV PUSH SCH ×3 (03:51→18:00)
[2016-07-15 05:02] LABS: AUTOMATED NEUTROPHIL # 10.2 TH/MM3 (1.8-7.7); BASOPHIL % 0.2 % (0.0-2.0); HEMATOCRIT 27.2 % (35.0-46.0); HEMO FLAGS DIFF FINAL; LYMPH % 2.5 % (9.0-44.0); LYMPHOCYTE # 0.3 TH/MM3 (1.0-4.8); MEAN CELL VOLUME 93.3 FL (80.0-100.0); MEAN CORPUSCULAR HEMOGLOBIN 31.4 PG (27.0-34.0); MEAN CORPUSCULAR HGB CONC 33.7 % (32.0-36.0); MONO % 2.1 % (0.0-8.0); NEUT % 95.2 % (16.0-70.0); PLATELET COUNT 157 TH/MM3 (150-450); RED BLOOD COUNT 2.91 MIL/MM3 (4.00-5.30); RED CELL DISTRIBUTION WIDTH 14.5 % (11.6-17.2); WHITE BLOOD COUNT 10.7 TH/MM3 (4.0-11.0)
[2016-07-15 05:03] LABS: BICARBONATE 30.1 MEQ/L (21.0-32.0); POTASSIUM 3.9 MEQ/L (3.5-5.1)
[2016-07-15 05:19] LABS: CALCIUM-PROTEIN CORRECTED 7.9 MG/DL (8.5-10.1)
[2016-07-15] MEDS: methylPREDNISolone SOD SUCC 40 MG/1 ML VIAL IV SCH (08:35)
[2016-07-15] MEDS: DILTIAZEM HCL 60 MG TAB PO SCH (08:36)
[2016-07-15] MEDS: SENNOSIDES SYRUP 8.8 MG/5 ML CUP PO SCH (09:00)
[2016-07-15] MEDS: DOCUSATE SODIUM 100 MG/10 ML UDC PO SCH ×2 (09:00→21:00)
[2016-07-15] MEDS: SODIUM CHLORIDE 0.9% FLUSH 10 ML FLUSH IVF SCH (09:00)
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
--- NOTE | 2016-07-15 10:16 | PD.ONC.PN ---
Subjective Subjective Remarks Afebrile overnight. Patient complaining of back pain, which she states is chronic. No bleeding. Eager to leave the [facility]. Objective Data Date Time Temp Pulse Resp B/P Pulse Ox O2 Delivery O2 Flow Rate FiO2 07/15/16 08:52 16 07/15/16 08:19 99 Nasal Cannula 2.00 07/15/16 06:00 80 07/15/16 04:00 80 07/15/16 04:00 97.7 87 14 134/78 95 07/15/16 02:00 80 07/15/16 00:00 99.0 87 16 160/95 96 07/15/16 00:00 89 07/14/16 22:00 101 07/14/16 20:00 101 07/14/16 20:00 Nasal Cannula 2.00 40 07/14/16 20:00 98.8 88 12 158/60 94 07/14/16 18:00 81 07/14/16 16:00 81 07/14/16 16:00 98.6 92 24 126/60 95 07/14/16 14:00 81 07/14/16 12:00 98.6 96 20 138/60 95 07/14/16 12:00 81 07/15/16 07/15/16 07/15/16 06:59 14:59 22:59 Intake Total 300 ml Output Total 1100 ml Balance -800 ml Result Diagram: 07/15/16 0400 07/15/16 0400 Laboratory Results Laboratory Tests Test 07/15/16 04:00 White Blood Count 10.7 TH/MM3 Red Blood Count 2.91 MIL/MM3 Hemoglobin 9.2 GM/DL Hematocrit 27.2 % Mean Corpuscular Volume 93.3 FL Mean Corpuscular Hemoglobin 31.4 PG Mean Corpuscular Hemoglobin 33.7 % Concent Red Cell Distribution Width 14.5 % Platelet Count 157 TH/MM3 Mean Platelet Volume 10.8 FL Neutrophils (%) (Auto) 95.2 % Lymphocytes (%) (Auto) 2.5 % Monocytes (%) (Auto) 2.1 % Eosinophils (%) (Auto) 0.0 % Basophils (%) (Auto) 0.2 % Neutrophils # (Auto) 10.2 TH/MM3 Lymphocytes # (Auto) 0.3 TH/MM3 Monocytes # (Auto) 0.2 TH/MM3 Eosinophils # (Auto) 0.0 TH/MM3 Basophils # (Auto) 0.0 TH/MM3 CBC Comment DIFF FINAL Differential Comment Sodium Level 131 MEQ/L Potassium Level 3.9 MEQ/L Chloride Level 90 MEQ/L Carbon Dioxide Level 30.1 MEQ/L Anion Gap 11 MEQ/L Blood Urea Nitrogen 115 MG/DL Creatinine 2.41 MG/DL Estimat Glomerular Filtration 22 ML/MIN Rate Random Glucose 130 MG/DL Calcium Level 6.8 MG/DL Protein Corrected Calcium 7.9 MG/DL Total Protein 4.9 GM/DL Random Vancomycin Level 19.0 COMMENT Administered Medications Medications (Trade) Dose Ordered Sig/Dulce Route PRN Reason Start Time Stop Time Status Last Admin Dose Admin Morphine Sulfate (Morphine Inj) 2 mg Q3H PRN IV PUSH pain level 3-10 07/06/16 21:15 07/15/16 08:47 Lorazepam (Ativan Inj) 1 mg Q6H PRN IV PUSH anxiety 07/06/16 21:15 07/06/16 21:44 Dextrose (D50w (Vial) Inj) 25 ml UNSCH PRN IV PUSH HYPOGLYCEMIA-SEE COMMENTS 07/08/16 04:00 07/08/16 09:35 Insulin Human Regular (NovoLIN R SUPPLEMENTAL SCALE) 1 Q4H SQ 07/08/16 10:00 07/15/16 02:00 Diltiazem HCl (Cardizem) 60 mg QID PO 07/08/16 10:00 07/15/16 08:36 Furosemide (Lasix Inj) 40 mg Q8H IV PUSH 07/08/16 18:00 07/15/16 08:35 Methylprednisolone Sodium Succinate 40 mg 40 mg Q12H IV 07/08/16 21:00 07/15/16 08:35 Sodium Chloride (NS 1000 ml Inj) 1,000 ml @ 0 mls/hr Q0M PRN IV For Prime & Rinse Back 07/09/16 11:18 07/12/16 12:52 Sodium Chloride (NS Flush) 5 ml UNSCH PRN IV FLUSH WITH DIALYSIS 07/09/16 11:30 07/13/16 20:31 Heparin Sodium (Porcine) (Heparin Inj) UNSCH PRN .XX WITH DIALYSIS 07/09/16 11:30 07/12/16 12:52 Gentamicin Sulfate (Gentamicin (Dialysis) Inj) 20 mg UNSCH PRN IV WITH DIALYSIS 07/09/16 11:30 07/12/16 12:52 Acetaminophen 650 mg 650 mg UNSCH PRN PO for headach, pain, temp > 101F 07/09/16 11:30 07/11/16 14:11 Levofloxacin/ Dextrose (Levaquin 500 Mg Premix Inj) 100 ml @ 100 mls/hr Q48H IV 07/09/16 14:00 07/13/16 13:52 Sodium Chloride (NS Flush) UNSCH PRN IVF SEE PROTOCOL 07/09/16 16:45 07/13/16 10:28 Sodium Chloride (NS Flush) DAILY IVF 07/10/16 09:00 07/13/16 10:28 Docusate Sodium (Colace Liq) 100 mg Q12HR PO 07/13/16 09:00 07/14/16 22:21 Sennosides (Senna Liq) 8.8 mg DAILY PO 07/13/16 09:00 07/13/16 10:27 Objective Remarks GENERAL: Middle aged female, lying in bed in nad SKIN: Warm and dry. HEAD: Normocephalic. EYES: No injection or drainage. NECK: Supple, trachea midline. CARDIOVASCULAR: Regular rate and rhythm RESPIRATORY: Breath sounds equal bilaterally. No accessory muscle use. On 2L O2 via NC GASTROINTESTINAL: Abdomen soft, non-tender, nondistended. EXTREMITIES: No cyanosis NEUROLOGICAL: awake and alert, normal speech. moving all extremities. Assessment/Plan Problem List: (1) Thrombocytopenia Status: Acute Plan: 07/15: platelets recovered. hematology will sign off. please call or reconsult if needed. 07/14: platelets improved to 121K today. no bleeding. 07/12: Platelets 81k today. No bleeding per RN. Continue to monitor coags, CBC. 07/11: platelets improved to 28K today without transfusion. will check coags. 07/10: coags improving. monitor CBC, coags. no transfusion today. 07/08: coags remain prolonged. thrombocytopenia likely d/t consumption with sepsis. will order u/s LE to r/o DVT. expect thrombocytopenia to resolve as sepsis resolves. --due to sepsis syndrome. Assessment 46y/o female with acute thrombocytopenia. h/o Morbid obesity, s/p gastric bypass Anxiety Ureteral stenosis Attending Statement no new c/o feels better. thrombocytopenia has resolved. sign off available prn Dawna óLpez Jul 15, 2016 10:16 Kalpana Logan MD Jul 16, 2016 06:01 Dawna López Jul 15, 2016 10:16
[2016-07-15] MEDS ORDERED: INSULIN NovoLIN REGULAR SUPPLEMENTAL SCALE SQ SCH (12:00)
[2016-07-15] MEDS: ACETAMINOPHEN/HYDROcodone 325 MG/5 MG TAB PO PRN ×2 (15:12→21:32)
[2016-07-15] MEDS: LEVOFLOXACIN 500 MG PREMIX INJ 100 ML IV SCH (15:12)
[2016-07-15 15:35] LABS: BLOOD, URINE SMALL (NEG); COMMENT (UR) CULTURE INDICATED; CULTURE IF INDICATED CULTURE INDICATED; GLUCOSE,URINE NEG (NEG); KETONE, URINE NEG (NEG); NITRITE,URINE NEG (NEG); PH, URINE 5.5 (5.0-8.5); SQUAMOUS EPITHELIAL CELL URINE 1 /hpf (0-5); URINE COLOR YELLOW (YELLW/STRAW)
--- NOTE | 2016-07-15 17:03 | HHI.NPPN ---
Subjective General Problems: Anemia Renal Failure: Acute History of Present Illness 46-year-old female with a past medical history of morbid obesity, anxiety, history of urethral stenosis came to the hospital with back pain and dark urine. I was called to see the patient for elevated BUN and creatinine. The patient previously has creatinine of 0.4-0.5 this was in 2014. Additional Remarks Patient is alert, with nasal cannula, not in distress. Review of Systems General Constitutional: Fatigue Cardiovascular Cardiac: Palpitations, LEA Objective Data Data 07/14/16 07/15/16 19:00 07:00 Intake Total 360 ml 450 ml Output Total 1550 ml 1350 ml Balance -1190 ml -900 ml Intake Oral 360 ml 400 ml IV Total 50 ml Output Urine Total 1550 ml 1350 ml Vital Signs Date Time Temp Pulse Resp B/P Pulse Ox O2 Delivery O2 Flow Rate FiO2 07/15/16 16:00 80 07/15/16 16:00 98.5 72 16 131/79 96 07/15/16 14:00 80 07/15/16 12:00 98.4 88 16 123/68 96 07/15/16 12:00 98.4 88 16 123/68 96 07/15/16 12:00 80 07/15/16 10:00 80 07/15/16 08:52 16 07/15/16 08:19 99 Nasal Cannula 2.00 07/15/16 08:00 98.6 105 22 99/60 95 07/15/16 08:00 80 07/15/16 07:00 Nasal Cannula 2.00 40 07/15/16 06:00 80 07/15/16 04:00 80 07/15/16 04:00 97.7 87 14 134/78 95 07/15/16 02:00 80 07/15/16 00:00 99.0 87 16 160/95 96 07/15/16 00:00 89 07/14/16 22:00 101 07/14/16 20:00 101 07/14/16 20:00 Nasal Cannula 2.00 40 07/14/16 20:00 98.8 88 12 158/60 94 07/14/16 18:00 81 -: 07/15/16 0400 07/15/16 0400 Microbiology 07/15/16 Urine Culture, Received Pending Physical Exam General Appearance: No Acute Distress, Comfortable Eyes Eye Exam: Pupils Equal Neck Neck Exam: Neck Supple Pulmonary Resp Exam: Breath Sounds Equal, No Distress, Rhonchi, Decreased Bases Cardiology CV Exam: Tachycardia Gastrointestinal/Abdomen GI Exam: Soft, Non-Tender, Bowel Sounds Present Extremeties Extremities Exam: Trace Edema Neurologic Neuro Exam: Alert, Awake, Oriented Psychiatric Psych Exam: Appropriate Responses Assessment/Plan Assessment Summary: MICHAEL/Acute Renal Failure Problem List: (1) Sinus tachycardia (2) Thrombocytopenia (3) Hyponatremia (4) UTI (lower urinary tract infection) (5) Bandemia (6) Elevated LFTs (7) Lactic acidosis (8) Sepsis (9) Acute kidney injury Plan Patient has low urine out put. HR is better and the BP is stable. Peripheral smear results noted. Most likely has MICHAEL related to sepsis. MELCHOR and ANCA negative. Only C3 slightly low. BC growing E.Coli ID following. platelets now improving. Urine out put is better. Creatinine slightly better. Hold HD for now. Follow the urine out put and BMP. Fernie Vega MD Jul 15, 2016 17:02
[2016-07-15] MEDS: predniSONE 20 MG TAB PO SCH (21:31)
[2016-07-16] VITALS (14 sets, daily range): BP systolic 91–131; BP diastolic 60–78; PULSE 92–108; RESP 15–21; TEMP 97.4–98; O2SAT 100
[2016-07-16] MEDS: FUROSEMIDE 40 MG/4 ML VIAL IV PUSH SCH ×3 (03:00→18:07)
[2016-07-16 06:56] LABS: AUTOMATED NEUTROPHIL # 17.7 TH/MM3 (1.8-7.7); BASOPHIL % 0.1 % (0.0-2.0); HEMATOCRIT 21.7 % (35.0-46.0); HEMO FLAGS DIFF FINAL; LYMPH % 2.9 % (9.0-44.0); LYMPHOCYTE # 0.6 TH/MM3 (1.0-4.8); MEAN CORPUSCULAR HEMOGLOBIN 30.9 PG (27.0-34.0); MEAN CORPUSCULAR HGB CONC 32.9 % (32.0-36.0); MONO % 5.3 % (0.0-8.0); NEUT % 91.7 % (16.0-70.0); PLATELET COUNT 164 TH/MM3 (150-450); RED BLOOD COUNT 2.31 MIL/MM3 (4.00-5.30); RED CELL DISTRIBUTION WIDTH 14.4 % (11.6-17.2); WHITE BLOOD COUNT 19.3 TH/MM3 (4.0-11.0)
[2016-07-16 07:29] LABS: BICARBONATE 28.9 MEQ/L (21.0-32.0); INDIRECT BILIRUBIN 0.5 MG/DL (0.0-0.8); MAGNESIUM 1.7 MG/DL (1.5-2.5); POTASSIUM 4.2 MEQ/L (3.5-5.1); TOTAL BILIRUBIN ADULT 1.3 MG/DL (0.2-1.0)
[2016-07-16 07:32] LABS: CALCIUM-PROTEIN CORRECTED 8.4 MG/DL (8.5-10.1)
[2016-07-16] MEDS: SODIUM CHLORIDE 0.9% FLUSH 10 ML FLUSH IVF SCH (09:00)
[2016-07-16] MEDS ORDERED: CARBOXYMETHYLCELL SOD 0.5% OPTH SOLN 15 ML BTL EACH EYE PRN (09:15)
--- NOTE | 2016-07-16 09:34 | HHI.PR ---
Subjective Remarks Pt had three large loose bloody BMs this morning which occurred without warning and pt had incontinence of the stool. She reports some abdominal cramping associated with the bloody BMs Denies any nausea or vomiting No reported reflux symptoms She has hx of gastric bypass. Objective Vitals Vital Signs Date Time Temp Pulse Resp B/P Pulse Ox O2 Delivery O2 Flow Rate FiO2 07/16/16 05:15 97.7 101 18 129/78 100 07/15/16 23:15 98.0 92 18 134/77 95 07/15/16 21:40 96 Nasal Cannula 2.00 07/15/16 20:00 Nasal Cannula 2.00 07/15/16 19:45 97.9 92 18 143/80 98 07/15/16 16:00 80 07/15/16 16:00 98.5 72 16 131/79 96 07/15/16 14:00 80 07/15/16 12:00 98.4 88 16 123/68 96 07/15/16 12:00 98.4 88 16 123/68 96 07/15/16 12:00 80 07/15/16 10:00 80 07/15/16 07/15/16 07/16/16 15:00 23:00 07:00 Intake Total 760 ml 720 ml 960 ml Output Total 400 ml 1050 ml 1150 ml Balance 360 ml -330 ml -190 ml Intake Oral 560 ml 720 ml 960 ml IV Total 200 ml Output Urine Total 400 ml 1050 ml 1150 ml # Voids 2 3 # Bowel Movements 0 0 Result Diagram: 07/16/16 0630 07/16/16 0630 Other Results Laboratory Tests Test 07/15/16 07/15/16 07/16/16 04:00 11:50 06:30 White Blood Count 10.7 TH/MM3 19.3 TH/MM3 Red Blood Count 2.91 MIL/MM3 2.31 MIL/MM3 Hemoglobin 9.2 GM/DL 7.1 GM/DL Hematocrit 27.2 % 21.7 % Mean Corpuscular Volume 93.3 FL 94.0 FL Mean Corpuscular Hemoglobin 31.4 PG 30.9 PG Mean Corpuscular Hemoglobin 33.7 % 32.9 % Concent Red Cell Distribution Width 14.5 % 14.4 % Platelet Count 157 TH/MM3 164 TH/MM3 Mean Platelet Volume 10.8 FL 11.1 FL Neutrophils (%) (Auto) 95.2 % 91.7 % Lymphocytes (%) (Auto) 2.5 % 2.9 % Monocytes (%) (Auto) 2.1 % 5.3 % Eosinophils (%) (Auto) 0.0 % 0.0 % Basophils (%) (Auto) 0.2 % 0.1 % Neutrophils # (Auto) 10.2 TH/MM3 17.7 TH/MM3 Lymphocytes # (Auto) 0.3 TH/MM3 0.6 TH/MM3 Monocytes # (Auto) 0.2 TH/MM3 1.0 TH/MM3 Eosinophils # (Auto) 0.0 TH/MM3 0.0 TH/MM3 Basophils # (Auto) 0.0 TH/MM3 0.0 TH/MM3 CBC Comment DIFF FINAL DIFF FINAL Differential Comment Sodium Level 131 MEQ/L 134 MEQ/L Potassium Level 3.9 MEQ/L 4.2 MEQ/L Chloride Level 90 MEQ/L 94 MEQ/L Carbon Dioxide Level 30.1 MEQ/L 28.9 MEQ/L Anion Gap 11 MEQ/L 11 MEQ/L Blood Urea Nitrogen 115 MG/DL 101 MG/DL Creatinine 2.41 MG/DL 1.82 MG/DL Estimat Glomerular Filtration 22 ML/MIN 30 ML/MIN Rate Random Glucose 130 MG/DL 133 MG/DL Calcium Level 6.8 MG/DL 6.8 MG/DL Protein Corrected Calcium 7.9 MG/DL 8.4 MG/DL Total Protein 4.9 GM/DL 4.2 GM/DL Random Vancomycin Level 19.0 COMMENT Urine Color YELLOW Urine Turbidity HAZY Urine pH 5.5 Urine Specific [place] 1.010 Urine Protein NEG mg/dL Urine Glucose (UA) NEG mg/dL Urine Ketones NEG mg/dL Urine Occult Blood SMALL Urine Nitrite NEG Urine Bilirubin NEG Urine Urobilinogen LESS THAN 2.0 MG/DL Urine Leukocyte Esterase MOD Urine RBC 2 /hpf Urine WBC 12 /hpf Urine Squamous Epithelial 1 /hpf Cells Urine Yeast (Budding) MANY Microscopic Urinalysis Comment CULTURE INDICATED Magnesium Level 1.7 MG/DL Total Bilirubin 1.3 MG/DL Direct Bilirubin 0.8 MG/DL Indirect Bilirubin 0.5 MG/DL Aspartate Amino Transf 37 U/L (AST/SGOT) Alanine Aminotransferase 58 U/L (ALT/SGPT) Alkaline Phosphatase 107 U/L Albumin 1.7 GM/DL Imaging Last Impressions Liver Ultrasound 07/11/16 0000 Signed Impressions: Service Date/Time: Monday, July 11, 2016 20:14 - CONCLUSION: 1. Small gallstone in the region of the gallbladder neck and mild gallbladder wall thickening. 2. Common bile duct is slightly prominent 7 mm. Warren Mayorga MD Head CT 07/11/16 0000 Signed Impressions: Service Date/Time: Monday, July 11, 2016 17:40 - CONCLUSION: No acute intracranial process. Hoang Kirk MD Chest X-Ray 07/11/16 0000 Signed Impressions: Service Date/Time: Monday, July 11, 2016 09:55 - CONCLUSION: Overall improvement in the aeration of the lungs. Manny Mckeon MD Central Venous Line 07/09/16 0000 Signed Impressions: Service Date/Time: Saturday, July 09, 2016 15:12 - CONCLUSION: Uncomplicated line placement as above. Procedure was done in conjunction with a right IJ Vas-Cath placement. Hoang Kirk MD Catheter Placement X-Ray 07/09/16 0000 Signed Impressions: Service Date/Time: Saturday, July 09, 2016 15:34 - CONCLUSION: Uncomplicated line placement as above. The procedure was done in conjunction with a right subclavian central venous catheter placement Hoang Kirk MD Lower Extremity Ultrasound 07/08/16 0000 Signed Impressions: Service Date/Time: Friday, July 08, 2016 18:43 - CONCLUSION: Normal examination. Iban Mann MD Abdomen/Pelvis CT 07/07/16 0000 Signed Impressions: Service Date/Time: Thursday, July 07, 2016 14:42 - CONCLUSION: Status post gastric bypass with what may be a fluid-filled gastric remnant. This may be chronic however a blind loop syndrome should be excluded. Enlarged kidneys with diffuse cortical thickening; evaluate for possible bilateral pyelonephritis. Intestinal ileus without evidence of mechanical obstruction. Ischemic bowel should be excluded. Cholelithiasis without evidence of gallbladder inflammation. Developing anasarca Scotty Shaw MD Renal Ultrasound 07/06/16 0000 Signed Impressions: Service Date/Time: Wednesday, July 06, 2016 22:23 - CONCLUSION: Normal examination. Juan Alberto Raya MD Objective Remarks General: NAD, AAOx3 Chest: CTA Cardiac: Regular Abd: +BS, soft ND/NT Ext: Mild edema A/P Problem List: (1) Sepsis due to urinary tract infection Status: Acute Plan: - Pt required critical care mgmt - Pt had respiratory failure and required mechanical ventilation - extubated 07/13 - Abx per ID, Levaquin - request PT - Cont. PO prednisone, will taper - PRN [place] (2) Rectal bleeding Status: Acute Plan: - Pt had three episodes of rectal bleeding this morning. - Hgb decreased to 7.1 from 9.2 yesterday - Pt has been on antibiotics, check stool studies to rule out infectious etiology - Start Protonix gtt - Consult GI - Transfused 2 units PRBCs - Monitor clinical status closely, so far vitals are stable but will monitor closely (3) Acute kidney injury Status: Acute Plan: - comgmt with Nephrology - pt developed worsening of ARF with sepsis - pt required HD per Nephrology - renal function now improving - Pt off HD - Monitor (4) Thrombocytopenia Status: Acute Plan: - [place] to be related to consumption with sepsis. - Pt required platelet transfusion - Platelet count is now recovered (5) Elevated LFTs Status: Acute Plan: - Labs are improving - likely d/t pt's sepsis - observe Assessment and Plan Patient examined. Assessment and plan formulated with Breanna Jain PA-C. I agree with the above. Breanna Jain Jul 16, 2016 09:34 Eligio Hernandez DO Jul 20, 2016 10:56
--- NOTE | 2016-07-16 11:16 | PD.CONS ---
HPI History of Present Illness This is a 46 year old female with a hx of gastric bypass, who is currently hospitalized for urosepsis. Her hospital stay was complicated by acute respiratory failure, which required intubation with mechanical ventilation and acute renal failure, which required hemodialysis. She has since been extubated and is no longer requiring hemodialysis. She is now on the medical floor receiving Levaquin for her E. Coli UTI/Bacteremia. GI was consulted for GI bleeding with maroon hematochezia. The patient and her nurse report that she started having GI bleeding earlier today around 730 am. She started passing a large amount of maroon bloody stools and the nurse reports that she has had about 3-4 episodes between 7:30-8:30 with a drop in her H/H from 9.2/27.2 to 7.1 /21.7. There are no aggravated or alleviating factors- she states it comes out of nowhere and was incontinent with the episodes. The patient denies any prior history of bleeding or PUD. She has never had an EGD/Colonoscopy. She reports that she has been having significant heartburn/reflux recently and that she does not usually have issues with this. She denies any nausea, vomiting, abdominal pain. She is currently hypotensive and receiving a fluid bolus and the plan is to transfer her to the ICU- Room 1301. CDiff stool was sent and is pending. Of note, the patient reports that she drinks 1/2 a liter of ETOH per day, but denies any known hx of liver cirrhosis. (Alida Joseph) PFSH Past Medical History Anxiety Obesity Hx CHF/Pulmonary edema period- pt reports resolved Past Surgical History Gastric bypass Urethral dilatation in 2006 Tonsillectomy (Alida Joseph) Coded Allergies: Ibuprofen (Unverified Allergy, Severe, S/P GASTRIC BYPASS, 07/06/16) Penicillin (Verified Allergy, Severe, 07/06/16) Toradol (Unverified Allergy, Severe, S/P GASTRIC BYPASS, 07/06/16) Medications Allergies Coded Allergies Type Severity Reaction Last Updated Verified Ibuprofen Allergy Severe S/P GASTRIC BYPASS 07/06/16 No Penicillin Allergy Severe 07/06/16 Yes Toradol Allergy Severe S/P GASTRIC BYPASS 07/06/16 No Active Scripts Medications Dose Route/Sig Days Date Category No Active Prescriptions or Reported Medications Rx Family History Noncontributory Social History Smokes 1/2 PPD Drinks 1/2 liter ETOH per day (Alida Joseph) Review of Systems Constitutional: COMPLAINS OF: Fatigue, DENIES: Fever, Chills Respiratory: DENIES: Cough Cardiovascular: DENIES: Chest pain Gastrointestinal: COMPLAINS OF: Bloody stools, Diarrhea, Heartburn, DENIES: Abdominal pain, Black stools, Constipation, Nausea, Vomiting, Hematemesis Integumentary: DENIES: Rash Hematologic/lymphatic: COMPLAINS OF: Bruising Neurologic: DENIES: Headache Psychiatric: DENIES: Confusion (Alida Joseph) GI Exam Vitals I&O Vital Signs Date Time Temp Pulse Resp B/P Pulse Ox O2 Delivery O2 Flow Rate FiO2 07/16/16 09:44 99 96/60 07/16/16 08:00 97.4 105 16 91/60 100 07/16/16 05:15 97.7 101 18 129/78 100 07/15/16 23:15 98.0 92 18 134/77 95 07/15/16 21:40 96 Nasal Cannula 2.00 07/15/16 20:00 Nasal Cannula 2.00 07/15/16 19:45 97.9 92 18 143/80 98 07/15/16 16:00 80 07/15/16 16:00 98.5 72 16 131/79 96 07/15/16 14:00 80 07/15/16 12:00 98.4 88 16 123/68 96 07/15/16 12:00 98.4 88 16 123/68 96 07/15/16 12:00 80 I/O 07/15/16 07/15/16 07/15/16 07/16/16 07/16/16 07/16/16 07:00 15:00 23:00 07:00 15:00 23:00 Intake Total 300 ml 760 ml 720 ml 960 ml 0 ml Output Total 1100 ml 400 ml 1050 ml 1150 ml Balance -800 ml 360 ml -330 ml -190 ml 0 ml Intake Oral 250 ml 560 ml 720 ml 960 ml 0 ml IV Total 50 ml 200 ml Output Urine Total 1100 ml 400 ml 1050 ml 1150 ml # Voids 2 3 1 # Bowel Movements 0 0 3 Imaging Last Impressions Liver Ultrasound 07/11/16 0000 Signed Impressions: Service Date/Time: Monday, July 11, 2016 20:14 - CONCLUSION: 1. Small gallstone in the region of the gallbladder neck and mild gallbladder wall thickening. 2. Common bile duct is slightly prominent 7 mm. Warren Mayorga MD Head CT 07/11/16 0000 Signed Impressions: Service Date/Time: Monday, July 11, 2016 17:40 - CONCLUSION: No acute intracranial process. Hoang Kirk MD Chest X-Ray 07/11/16 0000 Signed Impressions: Service Date/Time: Monday, July 11, 2016 09:55 - CONCLUSION: Overall improvement in the aeration of the lungs. Manny Mckeon MD Central Venous Line 07/09/16 0000 Signed Impressions: Service Date/Time: Saturday, July 09, 2016 15:12 - CONCLUSION: Uncomplicated line placement as above. Procedure was done in conjunction with a right IJ Vas-Cath placement. Honag Kirk MD Catheter Placement X-Ray 07/09/16 0000 Signed Impressions: Service Date/Time: Saturday, July 09, 2016 15:34 - CONCLUSION: Uncomplicated line placement as above. The procedure was done in conjunction with a right subclavian central venous catheter placement Hoang Kirk MD Lower Extremity Ultrasound 07/08/16 0000 Signed Impressions: Service Date/Time: Friday, July 08, 2016 18:43 - CONCLUSION: Normal examination. Iban Mann MD Abdomen/Pelvis CT 07/07/16 0000 Signed Impressions: Service Date/Time: Thursday, July 07, 2016 14:42 - CONCLUSION: Status post gastric bypass with what may be a fluid-filled gastric remnant. This may be chronic however a blind loop syndrome should be excluded. Enlarged kidneys with diffuse cortical thickening; evaluate for possible bilateral pyelonephritis. Intestinal ileus without evidence of mechanical obstruction. Ischemic bowel should be excluded. Cholelithiasis without evidence of gallbladder inflammation. Developing anasarca Scotty Shaw MD Renal Ultrasound 07/06/16 0000 Signed Impressions: Service Date/Time: Wednesday, July 06, 2016 22:23 - CONCLUSION: Normal examination. Juan Alberto Raya MD Laboratory Test 07/15/16 07/16/16 11:50 06:30 Urine Color YELLOW Urine Turbidity HAZY Urine pH 5.5 Urine Specific [place] 1.010 Urine Protein NEG mg/dL Urine Glucose (UA) NEG mg/dL Urine Ketones NEG mg/dL Urine Occult Blood SMALL Urine Nitrite NEG Urine Bilirubin NEG Urine Urobilinogen LESS THAN 2.0 MG/DL Urine Leukocyte Esterase MOD Urine RBC 2 /hpf Urine WBC 12 /hpf Urine Squamous Epithelial 1 /hpf Cells Urine Yeast (Budding) MANY Microscopic Urinalysis Comment CULTURE INDICATED White Blood Count 19.3 TH/MM3 Red Blood Count 2.31 MIL/MM3 Hemoglobin 7.1 GM/DL Hematocrit 21.7 % Mean Corpuscular Volume 94.0 FL Mean Corpuscular Hemoglobin 30.9 PG Mean Corpuscular Hemoglobin 32.9 % Concent Red Cell Distribution Width 14.4 % Platelet Count 164 TH/MM3 Mean Platelet Volume 11.1 FL Neutrophils (%) (Auto) 91.7 % Lymphocytes (%) (Auto) 2.9 % Monocytes (%) (Auto) 5.3 % Eosinophils (%) (Auto) 0.0 % Basophils (%) (Auto) 0.1 % Neutrophils # (Auto) 17.7 TH/MM3 Lymphocytes # (Auto) 0.6 TH/MM3 Monocytes # (Auto) 1.0 TH/MM3 Eosinophils # (Auto) 0.0 TH/MM3 Basophils # (Auto) 0.0 TH/MM3 CBC Comment DIFF FINAL Differential Comment Sodium Level 134 MEQ/L Potassium Level 4.2 MEQ/L Chloride Level 94 MEQ/L Carbon Dioxide Level 28.9 MEQ/L Anion Gap 11 MEQ/L Blood Urea Nitrogen 101 MG/DL Creatinine 1.82 MG/DL Estimat Glomerular Filtration 30 ML/MIN Rate Random Glucose 133 MG/DL Calcium Level 6.8 MG/DL Protein Corrected Calcium 8.4 MG/DL Magnesium Level 1.7 MG/DL Total Bilirubin 1.3 MG/DL Direct Bilirubin 0.8 MG/DL Indirect Bilirubin 0.5 MG/DL Aspartate Amino Transf 37 U/L (AST/SGOT) Alanine Aminotransferase 58 U/L (ALT/SGPT) Alkaline Phosphatase 107 U/L Total Protein 4.2 GM/DL Albumin 1.7 GM/DL Date/Time Procedure Status Source Growth 07/16/16 08:45 Cryptosporidium Exam Received Stool Stool Pending 07/16/16 08:45 Giardia Antigen (OLIMPIA) Received Stool Stool Pending 07/15/16 11:50 Urine Culture Received Urine Random Urine Pending 07/11/16 19:29 Aerobic Blood Culture - Preliminary Resulted Blood Peripheral NO GROWTH IN 4 DAYS 07/11/16 19:29 Anaerobic Blood Culture - Preliminary Resulted Blood Peripheral NO GROWTH IN 4 DAYS 07/11/16 16:00 Gram Stain - Final Complete Sputum Endotracheal 07/11/16 16:00 Sputum Culture - Final Complete Sputum Endotracheal 07/11/16 15:30 Urine Culture - Final Complete Urine Clean Catch [place] Physical Examination HEENT: Normocephalic; atraumatic; no jaundice. CHEST: CTA CARDIAC: Regular, mildly tachycardic, hypotensive ABDOMEN: Soft, rounded, nondistended, nontender; no hepatosplenomegaly; bowel sounds are present in all four quadrants. EXTREMITIES: Ecchymosis bue SKIN: Normal; no rash; no jaundice. UNIT SUPPORT REPRESENTATIVE: No focal deficits; alert and oriented times three. (Alida Joseph) Assessment and Plan Plan ASSESSMENT: - GIB, Hematochezia with maroon blood mixed within her stool. Sudden onset- 3- 4 episodes between 7:30-8:30. She has been having significant heartburn/reflux , but otherwise denies any nausea, vomiting, abdominal pain. She has never had any GI bleeding in the past. HH dropped from 9.2/27.2 to 7.1/21.7. She is receiving a fluid bolus for hypotension and 2 units of blood has been ordered. She has never had an EGD/ Colonoscopy. She has been on abx for urosepsis and stool has been sent for CDiff and this is pending. Of note, she does drink 1/2 liter per day, but denies any known history of cirrhosis. Going to room 1301. Protonix - GERD. Pt denies any usual history of this, but states she has been having significant gerd/reflux. - Anemia, H/H 9.2/27.2----> 7.1/21.7. 2 units of PRBC. - Leukocytosis. Pt admitted with urosepsis- on levaquin now. CDiff pending. - ARF, S/P HD. Off dialysis now. - Elevated LFTs, improving. Liver Ultrasound (07/11/16)----> 1. Small gallstone in the region of the gallbladder neck and mild gallbladder wall thickening. 2. Common bile duct is slightly prominent 7 mm. PLAN: - Plan for egd with flexible sigmoidoscopy today once transferred to unit and stabilized - Obtain consents - NPO - Protonix Gtt - Agree with transfusion - Await CDiff - Monitor HH - Transfuse as necessary - Supportive care - Further recommendations to follow based on results of above - Pt seen and examined by Dr. Solano and myself and this note is written on his behalf (Ailda Joseph) Physician Comments Patient seen and examined Agree with above Continue with current supportive care Monitor labs Plan for EGD flexible sigmoidoscopy today (Steven Solano MD) Alida Joseph Jul 16, 2016 11:16 Steven Solano MD Jul 16, 2016 21:56
[2016-07-16 11:30] LABS: HEMATOCRIT 18.8 % (35.0-46.0)
[2016-07-16 11:32] LABS: C. DIFF EPI 027 PRESUMPTIVE NEGATIVE (NEGATIVE); C. DIFF TOXIN PCR NEGATIVE (NEGATIVE)
[2016-07-16] MEDS: NS + KCL 20 MEQ INJ 1,000 ML IV SCH ×2 (11:34→20:15)
[2016-07-16] MEDS: PANTOPRAZOLE INJ 80 MG in SODIUM CHLORIDE 0.9% INJ 100 ML IV SCH ×2 (11:42→22:06)
--- NOTE | 2016-07-16 15:01 | HHI.IDPN ---
Subjective Subjective Remarks pt developped lower GI bleed and Hb drop required X fusion C.diff negative Antibiotics Levaquin Lines RSC TLC RIJ Vascat Past Medical History Reviewed Allergies: Coded Allergies: Ibuprofen (Unverified Allergy, Severe, S/P GASTRIC BYPASS, 07/06/16) Penicillin (Verified Allergy, Severe, 07/06/16) Toradol (Unverified Allergy, Severe, S/P GASTRIC BYPASS, 07/06/16) Objective . Vital Signs Date Time Temp Pulse Resp B/P Pulse Ox O2 Delivery O2 Flow Rate FiO2 07/16/16 14:40 97.6 104 18 108/62 100 07/16/16 14:00 106 07/16/16 12:00 98.0 92 15 118/63 100 07/16/16 12:00 92 07/16/16 11:35 100 Nasal Cannula 3.00 07/16/16 09:44 99 96/60 07/16/16 09:00 98 07/16/16 08:00 97.4 105 16 91/60 100 07/16/16 05:15 97.7 101 18 129/78 100 07/15/16 23:15 98.0 92 18 134/77 95 07/15/16 21:40 96 Nasal Cannula 2.00 07/15/16 20:00 Nasal Cannula 2.00 07/15/16 19:45 97.9 92 18 143/80 98 07/15/16 16:00 80 07/15/16 16:00 98.5 72 16 131/79 96 07/15/16 07/15/16 07/16/16 15:00 23:00 07:00 Intake Total 760 ml 720 ml 960 ml Output Total 400 ml 1050 ml 1150 ml Balance 360 ml -330 ml -190 ml Intake Oral 560 ml 720 ml 960 ml IV Total 200 ml Output Urine Total 400 ml 1050 ml 1150 ml # Voids 2 3 # Bowel Movements 0 0 . Laboratory Tests Test 07/15/16 07/16/16 07/16/16 04:00 06:30 11:05 White Blood Count 10.7 TH/MM3 19.3 TH/MM3 Red Blood Count 2.91 MIL/MM3 2.31 MIL/MM3 Hemoglobin 9.2 GM/DL 7.1 GM/DL 6.1 GM/DL Hematocrit 27.2 % 21.7 % 18.8 % Mean Corpuscular Volume 93.3 FL 94.0 FL Mean Corpuscular Hemoglobin 31.4 PG 30.9 PG Mean Corpuscular Hemoglobin 33.7 % 32.9 % Concent Red Cell Distribution Width 14.5 % 14.4 % Platelet Count 157 TH/MM3 164 TH/MM3 Mean Platelet Volume 10.8 FL 11.1 FL Neutrophils (%) (Auto) 95.2 % 91.7 % Lymphocytes (%) (Auto) 2.5 % 2.9 % Monocytes (%) (Auto) 2.1 % 5.3 % Eosinophils (%) (Auto) 0.0 % 0.0 % Basophils (%) (Auto) 0.2 % 0.1 % Neutrophils # (Auto) 10.2 TH/MM3 17.7 TH/MM3 Lymphocytes # (Auto) 0.3 TH/MM3 0.6 TH/MM3 Monocytes # (Auto) 0.2 TH/MM3 1.0 TH/MM3 Eosinophils # (Auto) 0.0 TH/MM3 0.0 TH/MM3 Basophils # (Auto) 0.0 TH/MM3 0.0 TH/MM3 CBC Comment DIFF FINAL DIFF FINAL Differential Comment Laboratory Tests Test 07/15/16 07/16/16 04:00 06:30 Sodium Level 131 MEQ/L 134 MEQ/L Potassium Level 3.9 MEQ/L 4.2 MEQ/L Chloride Level 90 MEQ/L 94 MEQ/L Carbon Dioxide Level 30.1 MEQ/L 28.9 MEQ/L Anion Gap 11 MEQ/L 11 MEQ/L Blood Urea Nitrogen 115 MG/DL 101 MG/DL Creatinine 2.41 MG/DL 1.82 MG/DL Estimat Glomerular Filtration 22 ML/MIN 30 ML/MIN Rate Random Glucose 130 MG/DL 133 MG/DL Calcium Level 6.8 MG/DL 6.8 MG/DL Protein Corrected Calcium 7.9 MG/DL 8.4 MG/DL Total Protein 4.9 GM/DL 4.2 GM/DL Magnesium Level 1.7 MG/DL Total Bilirubin 1.3 MG/DL Direct Bilirubin 0.8 MG/DL Indirect Bilirubin 0.5 MG/DL Aspartate Amino Transf 37 U/L (AST/SGOT) Alanine Aminotransferase 58 U/L (ALT/SGPT) Alkaline Phosphatase 107 U/L Albumin 1.7 GM/DL Microbiology Date/Time Procedure Status Source Growth 07/15/16 11:50 Urine Culture - Preliminary Resulted Urine Random Urine NO GROWTH IN 24 HOURS. 07/16/16 08:45 Cancelled Stool Stool Imaging Last Impressions Liver Ultrasound 07/11/16 0000 Signed Impressions: Service Date/Time: Monday, July 11, 2016 20:14 - CONCLUSION: 1. Small gallstone in the region of the gallbladder neck and mild gallbladder wall thickening. 2. Common bile duct is slightly prominent 7 mm. Warren Mayorga MD Head CT 07/11/16 0000 Signed Impressions: Service Date/Time: Monday, July 11, 2016 17:40 - CONCLUSION: No acute intracranial process. Hoang Kirk MD Chest X-Ray 07/11/16 0000 Signed Impressions: Service Date/Time: Monday, July 11, 2016 09:55 - CONCLUSION: Overall improvement in the aeration of the lungs. Manny Mckeon MD Central Venous Line 07/09/16 0000 Signed Impressions: Service Date/Time: Saturday, July 09, 2016 15:12 - CONCLUSION: Uncomplicated line placement as above. Procedure was done in conjunction with a right IJ Vas-Cath placement. Hoang Kirk MD Catheter Placement X-Ray 07/09/16 0000 Signed Impressions: Service Date/Time: Saturday, July 09, 2016 15:34 - CONCLUSION: Uncomplicated line placement as above. The procedure was done in conjunction with a right subclavian central venous catheter placement Hoang Kirk MD Lower Extremity Ultrasound 07/08/16 0000 Signed Impressions: Service Date/Time: Friday, July 08, 2016 18:43 - CONCLUSION: Normal examination. Iban Mann MD Abdomen/Pelvis CT 07/07/16 0000 Signed Impressions: Service Date/Time: Thursday, July 07, 2016 14:42 - CONCLUSION: Status post gastric bypass with what may be a fluid-filled gastric remnant. This may be chronic however a blind loop syndrome should be excluded. Enlarged kidneys with diffuse cortical thickening; evaluate for possible bilateral pyelonephritis. Intestinal ileus without evidence of mechanical obstruction. Ischemic bowel should be excluded. Cholelithiasis without evidence of gallbladder inflammation. Developing anasarca Scotty Shaw MD Renal Ultrasound 07/06/16 0000 Signed Impressions: Service Date/Time: Wednesday, July 06, 2016 22:23 - CONCLUSION: Normal examination. Juan Alberto Raya MD Physical Exam GENERAL: Awake, responsive, SKIN: No jaundice, rashes, or lesions. Ecchymoses on upper extremities. Warm CARDIOVASCULAR: Regular rate and rhythm without murmurs, gallops, or rubs. No JVD. Peripheral pulses symmetric. RESPIRATORY/CHEST: Coarse BS bilaterally ABDOMEN: Soft and not distended, not tender, BS (+), no organomegaly GENITOURINARY: bladder not palpable MUSCULOSKELETAL: Extremities without clubbing, cyanosis, or edema. NEUROLOGICAL: Awake and following commands normal speech LINE: NO evidence of infection Assessment & Plan Remarks Sepsis, E.coli due UTI ARF due sepsis - off HD; non oliguric - improving Respiratory failure, ARDS in sepsis settings DIC -seem to resolve Thrombocytopenia, resolved Leukocytosis - better today Tolerated Keflex in the past uneventfully coag neg staph bacteremia, different morpjhologies - likely contaminant New issue: GI bleeding, diarrhea - C.diff negative PLAN Continue Levaquin; can be changed to po - increase dose to 500 daily when GFR > 40 - anticipate 14 days of abx total: stop date July 20 will sign off - please call if any new ID issues Tiffany Lang MD Jul 16, 2016 15:01
[2016-07-16] MEDS ORDERED: PROPOFOL 200 MG/20 ML AMP IV ONE (16:40)
[2016-07-16] MEDS: CALCIUM CARBONATE 500 MG CHEWABLE TAB PO PRN ×2 (17:54→22:16)
--- NOTE | 2016-07-16 18:56 | HHI.NPPN ---
Subjective General Problems: Anemia Renal Failure: Acute History of Present Illness 46-year-old female with a past medical history of morbid obesity, anxiety, history of urethral stenosis came to the hospital with back pain and dark urine. I was called to see the patient for elevated BUN and creatinine. The patient previously has creatinine of 0.4-0.5 this was in 2014. Additional Remarks Patient is alert, with nasal cannula, not in distress, no abd. pain, no SOB. Review of Systems General Constitutional: Fatigue Cardiovascular Cardiac: Palpitations, LEA Objective Data Data 07/15/16 07/16/16 19:00 07:00 Intake Total 1240 ml 1200 ml Output Total 1000 ml 1600 ml Balance 240 ml -400 ml Intake Oral 1040 ml 1200 ml IV Total 200 ml Output Urine Total 1000 ml 1600 ml # Voids 5 # Bowel Movements 0 Vital Signs Date Time Temp Pulse Resp B/P Pulse Ox O2 Delivery O2 Flow Rate FiO2 07/16/16 18:00 104 07/16/16 17:47 97.6 100 16 109/72 100 07/16/16 16:00 108 07/16/16 16:00 97.6 108 21 120/71 100 07/16/16 15:32 100 Nasal Cannula 3.00 07/16/16 14:40 97.6 104 18 108/62 100 07/16/16 14:00 106 07/16/16 12:00 98.0 92 15 118/63 100 07/16/16 12:00 92 07/16/16 11:35 100 Nasal Cannula 3.00 07/16/16 09:44 99 96/60 07/16/16 09:00 98 07/16/16 08:00 97.4 105 16 91/60 100 07/16/16 05:15 97.7 101 18 129/78 100 07/15/16 23:15 98.0 92 18 134/77 95 07/15/16 21:40 96 Nasal Cannula 2.00 07/15/16 20:00 Nasal Cannula 2.00 07/15/16 19:45 97.9 92 18 143/80 98 -: 07/16/16 1105 07/16/16 0630 Microbiology Physical Exam General Appearance: No Acute Distress, Comfortable Eyes Eye Exam: Pupils Equal Neck Neck Exam: Neck Supple Pulmonary Resp Exam: Breath Sounds Equal, No Distress, Rhonchi, Decreased Bases Cardiology CV Exam: Tachycardia Gastrointestinal/Abdomen GI Exam: Soft, Non-Tender, Bowel Sounds Present Extremeties Extremities Exam: Trace Edema Neurologic Neuro Exam: Alert, Awake, Oriented Psychiatric Psych Exam: Appropriate Responses Assessment/Plan Assessment Summary: MICHAEL/Acute Renal Failure Problem List: (1) Sinus tachycardia (2) Thrombocytopenia (3) Hyponatremia (4) UTI (lower urinary tract infection) (5) Bandemia (6) Elevated LFTs (7) Lactic acidosis (8) Sepsis (9) Acute kidney injury Plan Patient has low urine out put. HR is better and the BP is stable. Peripheral smear results noted. Most likely has MICHAEL related to sepsis. MELCHOR and ANCA negative. Only C3 slightly low. BC growing E.Coli ID following. platelets now improving. Urine out put is better. Creatinine improving. Hgb. dropped and transfused. Sigmoidoscopy done. If Creatinine continue to improve, will remove VasCath. Fernie Vega MD Jul 16, 2016 18:56
[2016-07-16] MEDS: predniSONE 20 MG TAB PO SCH ×2 (20:13→21:03)
[2016-07-16] MEDS: SENNOSIDES SYRUP 8.8 MG/5 ML CUP PO SCH (20:14)
[2016-07-16] MEDS: DOCUSATE SODIUM 100 MG/10 ML UDC PO SCH (20:14)
[2016-07-16 21:27] LABS: AUTOMATED NEUTROPHIL # 21.7 TH/MM3 (1.8-7.7); BASOPHIL % 0.1 % (0.0-2.0); HEMATOCRIT 27.1 % (35.0-46.0); HEMO FLAGS DIFF FINAL; LYMPH % 5.1 % (9.0-44.0); LYMPHOCYTE # 1.2 TH/MM3 (1.0-4.8); MEAN CELL VOLUME 89.2 FL (80.0-100.0); MEAN CORPUSCULAR HGB CONC 33.7 % (32.0-36.0); MONO % 5.2 % (0.0-8.0); NEUT % 89.6 % (16.0-70.0); PLATELET COUNT 126 TH/MM3 (150-450); RED BLOOD COUNT 3.04 MIL/MM3 (4.00-5.30); RED CELL DISTRIBUTION WIDTH 16.2 % (11.6-17.2); WHITE BLOOD COUNT 24.3 TH/MM3 (4.0-11.0)
--- NOTE | 2016-07-16 22:10 | PD.PROCEDR ---
GI Procedure REFERRING PHYSICIAN Dr. Whittington PROCEDURE PERFORMED EGD with clip deployment INDICATION FOR PROCEDURE GI bleed PROCEDURE: The procedure, risks and benefits were discussed with Ms. Worley and informed consent was obtained. Anesthesia sedated her with Diprivan. She was placed in the left lateral decubitus position. EGD: The Pentax videoscope was introduced through the oropharynx and advanced to the second portion of the duodenum under direct visualization. Retroflexion was performed in the stomach. FINDINGS: The esophagus this was normal The stomach there were surgical changes consistent with gastric bypass but the gastric pouch that remains was unremarkable The small bowel evidence of blood was seen in the blind loop and what appears to be a dieulafoy was seen and so this was clipped otherwise the small bowel was unremarkable ESTIMATED BLOOD LOSS: None SPECIMENS REMOVED: Then COMPLICATIONS: None IMPRESSION: DieulaFoley Surgical changes consistent with gastric bypass PLAN: Continue with current supportive care Monitor labs and transfuse as needed Steven Solano MD Jul 16, 2016 22:09
[2016-07-16 22:48] LABS: HEMATOCRIT 26.2 % (35.0-46.0); REVIEW FLAG FINAL
[2016-07-17] VITALS (15 sets, daily range): BP systolic 118–149; BP diastolic 59–80; PULSE 72–101; RESP 10–24; TEMP 97.6–98.1; O2SAT 99–100
[2016-07-17] MEDS: LORazepam 2 MG/ML VIAL IV PUSH PRN ×2 (00:42→23:00)
[2016-07-17] MEDS: FUROSEMIDE 40 MG/4 ML VIAL IV PUSH SCH ×2 (02:00→11:22)
[2016-07-17 03:59] LABS: AUTOMATED NEUTROPHIL # 12.7 TH/MM3 (1.8-7.7); BASOPHIL % 0.1 % (0.0-2.0); HEMO FLAGS DIFF FINAL; LYMPH % 4.2 % (9.0-44.0); LYMPHOCYTE # 0.6 TH/MM3 (1.0-4.8); MEAN CELL VOLUME 89.1 FL (80.0-100.0); MEAN CORPUSCULAR HEMOGLOBIN 30.1 PG (27.0-34.0); MEAN CORPUSCULAR HGB CONC 33.8 % (32.0-36.0); MONO % 4.7 % (0.0-8.0); PLATELET COUNT 117 TH/MM3 (150-450); RED BLOOD COUNT 2.58 MIL/MM3 (4.00-5.30); RED CELL DISTRIBUTION WIDTH 16.6 % (11.6-17.2); WHITE BLOOD COUNT 13.9 TH/MM3 (4.0-11.0)
[2016-07-17] MEDS: NS + KCL 20 MEQ INJ 1,000 ML IV SCH ×3 (06:30→21:52)
[2016-07-17] MEDS: DOCUSATE SODIUM 100 MG/10 ML UDC PO SCH ×2 (07:14→20:18)
[2016-07-17 07:23] LABS: HEMATOCRIT 21.4 % (35.0-46.0); REVIEW FLAG FINAL
[2016-07-17] MEDS ORDERED: SODIUM CHLOR 0.9% 250 ML INJ 250 ML IV ONE (08:45)
[2016-07-17] MEDS: SODIUM CHLORIDE 0.9% FLUSH 10 ML FLUSH IVF SCH (09:12)
[2016-07-17] MEDS: predniSONE 20 MG TAB PO SCH ×2 (09:12→20:21)
--- NOTE | 2016-07-17 10:32 | HHI.NPPN ---
Subjective General Problems: Anemia Renal Failure: Acute History of Present Illness 46-year-old female with a past medical history of morbid obesity, anxiety, history of urethral stenosis came to the hospital with back pain and dark urine. I was called to see the patient for elevated BUN and creatinine. The patient previously has creatinine of 0.4-0.5 this was in 2014. Additional Remarks Patient is alert, now getting blood transfusion, not in distress. Review of Systems General Constitutional: Fatigue Cardiovascular Cardiac: Palpitations, LEA Objective Data Data 07/16/16 07/17/16 19:00 07:00 Intake Total 1400 ml 1794 ml Output Total 275 ml 650 ml Balance 1125 ml 1144 ml Intake Oral 0 ml 180 ml IV Total 1150 ml 1614 ml Packed Cells 250 ml Output Urine Total 275 ml 650 ml # Voids 2 4 # Bowel Movements 3 2 Vital Signs Date Time Temp Pulse Resp B/P Pulse Ox O2 Delivery O2 Flow Rate FiO2 07/17/16 08:00 82 07/17/16 08:00 97.8 82 10 119/59 99 07/17/16 07:41 99 21 07/17/16 07:15 99 Room Air 07/17/16 06:00 94 07/17/16 04:00 98.1 101 17 131/68 100 07/17/16 04:00 96 07/17/16 02:00 97 07/17/16 00:00 101 07/17/16 00:00 97.7 101 23 118/63 100 07/16/16 22:53 100 21 07/16/16 22:00 99 07/16/16 20:00 104 07/16/16 20:00 97.6 104 17 131/64 100 07/16/16 19:00 100 Room Air 07/16/16 18:00 104 07/16/16 17:47 97.6 100 16 109/72 100 07/16/16 16:00 108 07/16/16 16:00 97.6 108 21 120/71 100 07/16/16 15:32 100 Nasal Cannula 3.00 07/16/16 14:40 97.6 104 18 108/62 100 07/16/16 14:00 106 07/16/16 12:00 98.0 92 15 118/63 100 07/16/16 12:00 92 07/16/16 11:35 100 Nasal Cannula 3.00 -: 07/17/16 0630 07/16/16 0630 Physical Exam General Appearance: No Acute Distress, Comfortable Eyes Eye Exam: Pupils Equal Neck Neck Exam: Neck Supple Pulmonary Resp Exam: Breath Sounds Equal, No Distress, Rhonchi, Decreased Bases Cardiology CV Exam: Tachycardia Gastrointestinal/Abdomen GI Exam: Soft, Non-Tender, Bowel Sounds Present Extremeties Extremities Exam: Trace Edema Neurologic Neuro Exam: Alert, Awake, Oriented Psychiatric Psych Exam: Appropriate Responses Assessment/Plan Assessment Summary: MICHAEL/Acute Renal Failure Problem List: (1) Sinus tachycardia (2) Thrombocytopenia (3) Hyponatremia (4) UTI (lower urinary tract infection) (5) Bandemia (6) Elevated LFTs (7) Lactic acidosis (8) Sepsis (9) Acute kidney injury Plan Patient has low urine out put. HR is better and the BP is stable. Peripheral smear results noted. Most likely has MICHAEL related to sepsis. MELCHOR and ANCA negative. Only C3 slightly low. BC growing E.Coli ID following. platelets now improving. Urine out put is better. Creatinine improving. Hgb. dropped and transfused. Sigmoidoscopy done. Hgb. now 7.6 Creatinine is 1.8, will D/C Sarah. Fernie Vega MD Jul 17, 2016 10:32
--- NOTE | 2016-07-17 13:28 | HHI.PR ---
Subjective Remarks Pt had an EGD on 07/16/16 --> normal esophagus, surgical changes consistent with gastric bypass but the gastric pouch was unremarkable, and in the small bowel there was evidence of blood was seen in the blind loop and what appears to be a Dieulafoy and this was clipped otherwise the small bowel was unremarkable. Objective Vitals Vital Signs Date Time Temp Pulse Resp B/P Pulse Ox O2 Delivery O2 Flow Rate FiO2 07/17/16 12:32 97.6 93 17 143/75 100 07/17/16 12:00 88 07/17/16 12:00 97.7 88 24 149/71 100 07/17/16 10:00 94 07/17/16 08:00 82 07/17/16 08:00 97.8 82 10 119/59 99 07/17/16 07:41 99 21 07/17/16 07:15 99 Room Air 07/17/16 06:00 94 07/17/16 04:00 98.1 101 17 131/68 100 07/17/16 04:00 96 07/17/16 02:00 97 07/17/16 00:00 101 07/17/16 00:00 97.7 101 23 118/63 100 07/16/16 22:53 100 21 07/16/16 22:00 99 07/16/16 20:00 104 07/16/16 20:00 97.6 104 17 131/64 100 07/16/16 19:00 100 Room Air 07/16/16 18:00 104 07/16/16 17:47 97.6 100 16 109/72 100 07/16/16 16:00 108 07/16/16 16:00 97.6 108 21 120/71 100 07/16/16 15:32 100 Nasal Cannula 3.00 07/16/16 14:40 97.6 104 18 108/62 100 07/16/16 14:00 106 07/16/16 07/16/16 07/17/16 15:00 23:00 07:00 Intake Total 1400 ml 902 ml 892 ml Output Total 275 ml 425 ml 225 ml Balance 1125 ml 477 ml 667 ml Intake Oral 0 ml 120 ml 60 ml IV Total 1150 ml 782 ml 832 ml Packed Cells 250 ml Output Urine Total 275 ml 425 ml 225 ml # Voids 2 2 2 # Bowel Movements 3 2 0 Result Diagram: 4/27/17 0630 07/16/16 0630 Imaging Last Impressions Liver Ultrasound 07/11/16 0000 Signed Impressions: Service Date/Time: Monday, July 11, 2016 20:14 - CONCLUSION: 1. Small gallstone in the region of the gallbladder neck and mild gallbladder wall thickening. 2. Common bile duct is slightly prominent 7 mm. Warren Mayorga MD Head CT 07/11/16 0000 Signed Impressions: Service Date/Time: Monday, July 11, 2016 17:40 - CONCLUSION: No acute intracranial process. Hoang Kirk MD Chest X-Ray 07/11/16 0000 Signed Impressions: Service Date/Time: Monday, July 11, 2016 09:55 - CONCLUSION: Overall improvement in the aeration of the lungs. Manny Mckeon MD Central Venous Line 07/09/16 0000 Signed Impressions: Service Date/Time: Saturday, July 09, 2016 15:12 - CONCLUSION: Uncomplicated line placement as above. Procedure was done in conjunction with a right IJ Vas-Cath placement. Hoang Kirk MD Catheter Placement X-Ray 07/09/16 0000 Signed Impressions: Service Date/Time: Saturday, July 09, 2016 15:34 - CONCLUSION: Uncomplicated line placement as above. The procedure was done in conjunction with a right subclavian central venous catheter placement Hoang Kirk MD Lower Extremity Ultrasound 07/08/16 0000 Signed Impressions: Service Date/Time: Friday, July 08, 2016 18:43 - CONCLUSION: Normal examination. Iban Mann MD Abdomen/Pelvis CT 07/07/16 0000 Signed Impressions: Service Date/Time: Thursday, July 07, 2016 14:42 - CONCLUSION: Status post gastric bypass with what may be a fluid-filled gastric remnant. This may be chronic however a blind loop syndrome should be excluded. Enlarged kidneys with diffuse cortical thickening; evaluate for possible bilateral pyelonephritis. Intestinal ileus without evidence of mechanical obstruction. Ischemic bowel should be excluded. Cholelithiasis without evidence of gallbladder inflammation. Developing anasarca Scotty Shaw MD Renal Ultrasound 07/06/16 0000 Signed Impressions: Service Date/Time: Wednesday, July 06, 2016 22:23 - CONCLUSION: Normal examination. Juan Alberto Raya MD Objective Remarks General: NAD, AAOx3 Chest: CTA Cardiac: Regular Abd: +BS, soft ND/NT Ext: Mild edema A/P Problem List: (1) Sepsis due to urinary tract infection Status: Acute Plan: - Pt required critical care mgmt - Pt had respiratory failure and required mechanical ventilation - extubated 07/13 - Abx per ID, Levaquin - request PT - Cont. PO prednisone, will taper - PRN [place] (2) Rectal bleeding Status: Acute Plan: - Pt had three episodes of rectal bleeding on 07/16 and her H/H decreased to 6.1/ 18.8. - Pt was transfused with 2 units of PRBCs on 07/16 - Pt was transferred to [facility] on 07/16 - Her H/H improved to 9.2/26.2 but today decreased back down to 7.6/21.4 and pt had another bloody BM this morning. - Pt was started on Protonix gtt on 07/16 - GI following. - EGD on 07/16/16 --> normal esophagus, surgical changes consistent with gastric bypass but the gastric pouch was unremarkable, and in the small bowel there was evidence of blood was seen in the blind loop and what appears to be a Dieulafoy and this was clipped otherwise the small bowel was unremarkable. - Pt to receive another 2 units of PRBCs today - GIB scan is pending. - Monitor clinical status closely, so far vitals are stable but will monitor closely (3) Acute kidney injury Status: Acute Plan: - comgmt with Nephrology - pt developed worsening of ARF with sepsis - pt required HD per Nephrology - renal function now improving - Pt off HD - Monitor (4) Thrombocytopenia Status: Acute Plan: - [place] to be related to consumption with sepsis. - Pt required platelet transfusion - Platelet count is now recovered (5) Elevated LFTs Status: Acute Plan: - Labs are improving - likely d/t pt's sepsis - observe Assessment and Plan Patient examined. Assessment and plan formulated with Breanna Jain PA-C. I agree with the above. Breanna Jain Jul 17, 2016 13:28 Eligio Hernandez DO Jul 20, 2016 10:56
[2016-07-17] MEDS: LEVOFLOXACIN 500 MG PREMIX INJ 100 ML IV SCH (14:00)
--- NOTE | 2016-07-17 16:39 | RADRPT ---
EXAM DATE/TIME: 07/17/2016 14:11 [place] COMPARISON: No previous studies available for comparison. INDICATIONS : Blood in stool for one day. Rectal bleeding. DOSE: 20.1 mCi Tc99m Ultratag labeled red blood cells IV IMAGIN hrs MEDICAL HISTORY : Congestive hearrt failure. SURGICAL HISTORY : section. Gastric bypass. Tonsillectomy. ENCOUNTER: Initial ACUITY: 1 day PAIN SCALE: 0/10 LOCATION: lower quadrant TECHNIQUE: Following the modified in vitro labeling of autologous red cells, dynamic continuous images were acqu ired for the specified interval. FINDINGS: BIODISTRIBUTION: There is a very good labeling of red cells without significant uptake in the gastric wall. There is good delineation of the blood pool of the spleen and abdominal vessels. BLEEDING: No episodes of active GI bleeding are observed during specified interval of continuous observation. CONCLUSION: 1. No evidence of acute gastrointestinal bleed Michael Franks MD on July 17, 2016 at 16:36 Board Certified Radiologist. This report was verified electronically.
[2016-07-17 18:36] LABS: HEMATOCRIT 30.1 % (35.0-46.0); REVIEW FLAG FINAL
[2016-07-17] MEDS: PANTOPRAZOLE INJ 80 MG in SODIUM CHLORIDE 0.9% INJ 100 ML IV SCH (20:50)
--- NOTE | 2016-07-17 22:24 | HHI.GIFU ---
Subjective Remarks Appears to be comfortable in bed had rectal bleeding earlier no abdominal pain Objective Vitals I&O Vital Signs Date Time Temp Pulse Resp B/P Pulse Ox O2 Delivery O2 Flow Rate FiO2 07/17/16 20:00 98.1 72 17 148/65 100 07/17/16 20:00 92 07/17/16 19:00 100 Room Air 07/17/16 18:00 100 Room Air 07/17/16 18:00 96 07/17/16 16:00 90 07/17/16 16:00 100 Room Air 07/17/16 16:00 90 15 148/78 100 07/17/16 14:00 85 07/17/16 14:00 97.6 91 16 145/80 100 07/17/16 12:32 97.6 93 17 143/75 100 07/17/16 12:00 88 07/17/16 12:00 97.7 88 24 149/71 100 07/17/16 10:00 94 07/17/16 08:00 82 07/17/16 08:00 97.8 82 10 119/59 99 07/17/16 07:41 99 21 07/17/16 07:15 99 Room Air 07/17/16 06:00 94 07/17/16 04:00 98.1 101 17 131/68 100 07/17/16 04:00 96 07/17/16 02:00 97 07/17/16 00:00 101 07/17/16 00:00 97.7 101 23 118/63 100 07/16/16 22:53 100 21 I/O 07/16/16 07/16/16 07/16/16 07/17/16 07/17/16 07/17/16 07:00 15:00 23:00 07:00 15:00 23:00 Intake Total 960 ml 1400 ml 902 ml 892 ml 622 ml Output Total 1150 ml 275 ml 425 ml 225 ml Balance -190 ml 1125 ml 477 ml 667 ml 622 ml Intake Oral 960 ml 0 ml 120 ml 60 ml 240 ml IV Total 1150 ml 782 ml 832 ml 382 ml Packed Cells 250 ml Output Urine Total 1150 ml 275 ml 425 ml 225 ml # Voids 2 2 2 4 # Bowel Movements 0 3 2 0 1 Laboratory Laboratory Tests Test 07/17/16 07/17/16 07/17/1607/17/17 03:00 06:30 08:40 11:21 White Blood Count 13.9 Red Blood Count 2.58 Hemoglobin 7.8 7.6 Hematocrit 23.0 21.4 Mean Corpuscular Volume 89.1 Mean Corpuscular Hemoglobin 30.1 Mean Corpuscular Hemoglobin 33.8 Concent Red Cell Distribution Width 16.6 Platelet Count 117 Mean Platelet Volume 10.6 Neutrophils (%) (Auto) 91.0 Lymphocytes (%) (Auto) 4.2 Monocytes (%) (Auto) 4.7 Eosinophils (%) (Auto) 0.0 Basophils (%) (Auto) 0.1 Neutrophils # (Auto) 12.7 Lymphocytes # (Auto) 0.6 Monocytes # (Auto) 0.7 Eosinophils # (Auto) 0.0 Basophils # (Auto) 0.0 CBC Comment DIFF FINAL Differential Comment Blood Type A POSITIVE Crossmatch Leukocyte-Reduced Leukocyte-Reduced Red Blood Red Blood Cells Cells Blood Bank Comment Test 07/17/16 07/17/16 17:45 18:00 Crossmatch Leukocyte-Reduced Red Blood Cells Blood Bank Comment Hemoglobin 10.1 Hematocrit 30.1 Date/Time Procedure Status Source Growth 07/16/16 08:45 Cancelled Stool Stool 07/15/16 11:50 Urine Culture - Preliminary Resulted Urine Random Urine Yeast Species Imaging Last Impressions GI Bleed Scan Nuclear Medicine 07/17/16 0000 Signed Impressions: Service Date/Time: June 14:11 - CONCLUSION: 1. No evidence of acute gastrointestinal bleed Michael Franks MD Liver Ultrasound 07/11/16 0000 Signed Impressions: Service Date/Time: Monday, July 11, 2016 20:14 - CONCLUSION: 1. Small gallstone in the region of the gallbladder neck and mild gallbladder wall thickening. 2. Common bile duct is slightly prominent 7 mm. Warren Mayorga MD Head CT 07/11/16 0000 Signed Impressions: Service Date/Time: Monday, July 11, 2016 17:40 - CONCLUSION: No acute intracranial process. Hoang Kirk MD Chest X-Ray 07/11/16 0000 Signed Impressions: Service Date/Time: Monday, July 11, 2016 09:55 - CONCLUSION: Overall improvement in the aeration of the lungs. Manny Mckeon MD Central Venous Line 07/09/16 0000 Signed Impressions: Service Date/Time: Saturday, July 09, 2016 15:12 - CONCLUSION: Uncomplicated line placement as above. Procedure was done in conjunction with a right IJ Vas-Cath placement. Hoang Kirk MD Catheter Placement X-Ray 07/09/16 0000 Signed Impressions: Service Date/Time: Saturday, July 09, 2016 15:34 - CONCLUSION: Uncomplicated line placement as above. The procedure was done in conjunction with a right subclavian central venous catheter placement Hoang Kirk MD Lower Extremity Ultrasound 07/08/16 0000 Signed Impressions: Service Date/Time: Friday, July 08, 2016 18:43 - CONCLUSION: Normal examination. Iban Mann MD Abdomen/Pelvis CT 07/07/16 0000 Signed Impressions: Service Date/Time: Thursday, July 07, 2016 14:42 - CONCLUSION: Status post gastric bypass with what may be a fluid-filled gastric remnant. This may be chronic however a blind loop syndrome should be excluded. Enlarged kidneys with diffuse cortical thickening; evaluate for possible bilateral pyelonephritis. Intestinal ileus without evidence of mechanical obstruction. Ischemic bowel should be excluded. Cholelithiasis without evidence of gallbladder inflammation. Developing anasarca Scotty Shaw MD Renal Ultrasound 07/06/16 0000 Signed Impressions: Service Date/Time: Wednesday, July 06, 2016 22:23 - CONCLUSION: Normal examination. Juan Alberto Raya MD Physical Exam HEENT: Normocephalic throat is clear NECK: Neck is supple, no JVD, no lymphadenopathy. CHEST: Chest is clear to auscultation and percussion. CARDIAC: Regular rate and rhythm with no murmur gallop or rubs. ABDOMEN: Soft, nondistended, nontender; no hepatosplenomegaly; bowel sounds are present in all four quadrants. EXTREMITIES: No clubbing, cyanosis, or edema. SKIN: Normal; no rash; no jaundice. Assessment and Plan Plan ASSESSMENT: - GIB, Hematochezia with maroon blood mixed within her stool. Sudden onset- 3- 4 episodes between 7:30-8:30. She has been having significant heartburn/reflux , but otherwise denies any nausea, vomiting, abdominal pain. She has never had any GI bleeding in the past. HH dropped from 9.2/27.2 to 7.1/.7. She is receiving a fluid bolus for hypotension and 2 units of blood has been ordered. She has never had an EGD/ Colonoscopy. She has been on abx for urosepsis and stool has been sent for CDiff and this is pending. Of note, she does drink 1/2 liter per day, but denies any known history of cirrhosis. Going to room 1301. Protonix - GERD. Pt denies any usual history of this, but states she has been having significant gerd/reflux. - Anemia, H/H 9.2/27.2----> 7.1/.7. 2 units of PRBC. - Leukocytosis. Pt admitted with urosepsis- on levaquin now. CDiff pending. - ARF, S/P HD. Off dialysis now. - Elevated LFTs, improving. Liver Ultrasound (07/11/16)----> 1. Small gallstone in the region of the gallbladder neck and mild gallbladder wall thickening. 2. Common bile duct is slightly prominent 7 mm. PLAN: -Bleeding scan is negative -Continue with current supportive care -Consider colonoscopy -Monitor labs and transfuse as needed -C. difficile is negative - Further recommendations to follow based on results of above Steven Solano MD Jul 17, 2016 22:23
[2016-07-18] VITALS (10 sets, daily range): BP systolic 137–153; BP diastolic 71–85; PULSE 74–96; RESP 18–20; TEMP 97.2–98.2; O2SAT 96–100
[2016-07-18 01:24] LABS: HEMATOCRIT 26.4 % (35.0-46.0); REVIEW FLAG FINAL
[2016-07-18] MEDS: ACETAMINOPHEN/HYDROcodone 325 MG/5 MG TAB PO PRN ×3 (04:13→18:35)
[2016-07-18 05:15] LABS: AUTOMATED NEUTROPHIL # 12.3 TH/MM3 (1.8-7.7); BASOPHIL % 0.1 % (0.0-2.0); EOSINOPHIL % 0.1 % (0.0-4.0); HEMO FLAGS DIFF FINAL; LYMPH % 4.1 % (9.0-44.0); LYMPHOCYTE # 0.6 TH/MM3 (1.0-4.8); MEAN CORPUSCULAR HEMOGLOBIN 30.3 PG (27.0-34.0); MEAN CORPUSCULAR HGB CONC 34.8 % (32.0-36.0); MONO % 5.6 % (0.0-8.0); NEUT % 90.1 % (16.0-70.0); PLATELET COUNT 124 TH/MM3 (150-450); RED CELL DISTRIBUTION WIDTH 17.1 % (11.6-17.2); WHITE BLOOD COUNT 13.7 TH/MM3 (4.0-11.0)
[2016-07-18 05:42] LABS: BICARBONATE 24.8 MEQ/L (21.0-32.0); CALCIUM-PROTEIN CORRECTED 9.1 MG/DL (8.5-10.1); POTASSIUM 4.1 MEQ/L (3.5-5.1); TOTAL BILIRUBIN ADULT 1.3 MG/DL (0.2-1.0)
[2016-07-18] MEDS: PANTOPRAZOLE INJ 80 MG in SODIUM CHLORIDE 0.9% INJ 100 ML IV SCH (06:31)
[2016-07-18] MEDS: SENNOSIDES SYRUP 8.8 MG/5 ML CUP PO SCH (09:00)
[2016-07-18] MEDS: SODIUM CHLORIDE 0.9% FLUSH 10 ML FLUSH IVF SCH (09:00)
[2016-07-18] MEDS: DOCUSATE SODIUM 100 MG/10 ML UDC PO SCH ×2 (09:00→20:36)
[2016-07-18] MEDS: predniSONE 20 MG TAB PO SCH (10:24)
[2016-07-18] MEDS: CALCIUM CARBONATE 500 MG CHEWABLE TAB PO PRN (10:24)
[2016-07-18] MEDS: NS + KCL 20 MEQ INJ 1,000 ML IV SCH (11:42)
--- NOTE | 2016-07-18 12:29 | HHI.NPPN ---
Subjective General Problems: Anemia Renal Failure: Acute History of Present Illness 46-year-old female with a past medical history of morbid obesity, anxiety, history of urethral stenosis came to the hospital with back pain and dark urine. I was called to see the patient for elevated BUN and creatinine. The patient previously has creatinine of 0.4-0.5 this was in 2014. Additional Remarks Patient is alert, now getting blood transfusion, not in distress. Review of Systems General Constitutional: Fatigue Cardiovascular Cardiac: Palpitations, LEA Objective Data Data 07/17/16 07/18/16 19:00 07:00 Intake Total 622 ml 1849 ml Output Total 1700 ml Balance 622 ml 149 ml Intake Oral 240 ml 350 ml IV Total 382 ml 1499 ml Output Urine Total 1700 ml # Voids 4 7 # Bowel Movements 1 2 Vital Signs Date Time Temp Pulse Resp B/P Pulse Ox O2 Delivery O2 Flow Rate FiO2 07/18/16 10:00 77 07/18/16 08:00 98.2 81 20 152/77 98 07/18/16 08:00 87 07/18/16 07:00 98 Room Air 07/18/16 06:00 74 07/18/16 04:00 98.2 84 19 153/80 99 07/18/16 04:00 96 07/18/16 02:00 86 07/18/16 00:00 98.2 90 19 139/76 96 07/18/16 00:00 80 07/17/16 23:29 100 21 07/17/16 22:00 89 07/17/16 20:00 98.1 72 17 148/65 100 07/17/16 20:00 92 07/17/16 19:00 100 Room Air 07/17/16 18:00 100 Room Air 07/17/16 18:00 96 07/17/16 16:00 90 07/17/16 16:00 100 Room Air 07/17/16 16:00 90 15 148/78 100 07/17/16 14:00 85 07/17/16 14:00 97.6 91 16 145/80 100 07/17/16 12:32 97.6 93 17 143/75 100 -: 07/18/16 0443 07/18/16 0443 Physical Exam General Appearance: No Acute Distress, Comfortable Eyes Eye Exam: Pupils Equal Neck Neck Exam: Neck Supple Pulmonary Resp Exam: Breath Sounds Equal, No Distress, Rhonchi, Decreased Bases Cardiology CV Exam: Tachycardia Gastrointestinal/Abdomen GI Exam: Soft, Non-Tender, Bowel Sounds Present Extremeties Extremities Exam: Trace Edema Neurologic Neuro Exam: Alert, Awake, Oriented Psychiatric Psych Exam: Appropriate Responses Assessment/Plan Assessment Summary: MICHAEL/Acute Renal Failure Problem List: (1) Sinus tachycardia (2) Thrombocytopenia (3) Hyponatremia (4) UTI (lower urinary tract infection) (5) Bandemia (6) Elevated LFTs (7) Lactic acidosis (8) Sepsis (9) Acute kidney injury Plan Patient has low urine out put. HR is better and the BP is stable. Peripheral smear results noted. Most likely has MICHAEL related to sepsis. MELCHOR and ANCA negative. Only C3 slightly low. BC growing E.Coli ID following. platelets now improving. Urine out put is better. Creatinine improving. Hgb. dropped and transfused. Sigmoidoscopy done. Hgb. now 7.6 Creatinine is 1.8, will D/C Sarah. Fernie Vega MD Jul 18, 2016 12:29
--- NOTE | 2016-07-18 15:26 | HHI.PR ---
Subjective Remarks No new complaints. Objective Vitals Vital Signs Date Time Temp Pulse Resp B/P Pulse Ox O2 Delivery O2 Flow Rate FiO2 07/18/16 12:35 95 07/18/16 12:35 97.5 91 18 145/85 98 07/18/16 10:00 77 07/18/16 08:00 98.2 81 20 152/77 98 07/18/16 08:00 87 07/18/16 07:00 98 Room Air 07/18/16 06:00 74 07/18/16 04:00 98.2 84 19 153/80 99 07/18/16 04:00 96 07/18/16 02:00 86 07/18/16 00:00 98.2 90 19 139/76 96 07/18/16 00:00 80 07/17/16 23:29 100 21 07/17/16 22:00 89 07/17/16 20:00 98.1 72 17 148/65 100 07/17/16 20:00 92 07/17/16 19:00 100 Room Air 07/17/16 18:00 100 Room Air 07/17/16 18:00 96 07/17/16 16:00 90 07/17/16 16:00 100 Room Air 07/17/16 16:00 90 15 148/78 100 07/17/16 07/17/16 07/18/16 15:00 23:00 07:00 Intake Total 622 ml 768 ml 1081 ml Output Total 650 ml 1050 ml Balance 622 ml 118 ml 31 ml Intake Oral 240 ml 120 ml 230 ml IV Total 382 ml 648 ml 851 ml Output Urine Total 650 ml 1050 ml # Voids 4 2 5 # Bowel Movements 1 2 0 Result Diagram: 07/18/16 0443 07/18/16 0443 Imaging Last Impressions Liver Ultrasound 07/11/16 0000 Signed Impressions: Service Date/Time: Monday, July 11, 2016 20:14 - CONCLUSION: 1. Small gallstone in the region of the gallbladder neck and mild gallbladder wall thickening. 2. Common bile duct is slightly prominent 7 mm. Warren Mayorga MD Head CT 07/11/16 0000 Signed Impressions: Service Date/Time: Monday, July 11, 2016 17:40 - CONCLUSION: No acute intracranial process. Hoang Kirk MD Chest X-Ray 07/11/16 0000 Signed Impressions: Service Date/Time: Monday, July 11, 2016 09:55 - CONCLUSION: Overall improvement in the aeration of the lungs. Manny Mckeon MD Central Venous Line 07/09/16 0000 Signed Impressions: Service Date/Time: Saturday, July 09, 2016 15:12 - CONCLUSION: Uncomplicated line placement as above. Procedure was done in conjunction with a right IJ Vas-Cath placement. Hoang Kirk MD Catheter Placement X-Ray 07/09/16 0000 Signed Impressions: Service Date/Time: Saturday, July 09, 2016 15:34 - CONCLUSION: Uncomplicated line placement as above. The procedure was done in conjunction with a right subclavian central venous catheter placement Hoang Kirk MD Lower Extremity Ultrasound 07/08/16 0000 Signed Impressions: Service Date/Time: Friday, July 08, 2016 18:43 - CONCLUSION: Normal examination. Iban aMnn MD Abdomen/Pelvis CT 07/07/16 0000 Signed Impressions: Service Date/Time: Thursday, July 07, 2016 14:42 - CONCLUSION: Status post gastric bypass with what may be a fluid-filled gastric remnant. This may be chronic however a blind loop syndrome should be excluded. Enlarged kidneys with diffuse cortical thickening; evaluate for possible bilateral pyelonephritis. Intestinal ileus without evidence of mechanical obstruction. Ischemic bowel should be excluded. Cholelithiasis without evidence of gallbladder inflammation. Developing anasarca Scotty Shaw MD Renal Ultrasound 07/06/16 0000 Signed Impressions: Service Date/Time: Wednesday, July 06, 2016 22:23 - CONCLUSION: Normal examination. Juan Alberto Raya MD Objective Remarks General: NAD, AAOx3 Chest: CTA Cardiac: Regular Abd: +BS, soft ND/NT Ext: Mild edema A/P Problem List: (1) Rectal bleeding Status: Acute Plan: - comgmt with GI - Pt had three episodes of rectal bleeding on 07/16 and her H/H decreased to 6.1/ 18.8. - Pt was transfused with 2 units of PRBCs on 07/16 - Pt was transferred to [facility] on 07/16 - Her H/H improved to 9.2/26.2 but today decreased back down to 7.6/21.4 and pt had another bloody BM (07/17/16) - Protonix gtt on 07/16 --> changed to scheduled IV protonix 07/18 - EGD on 07/16/16 --> normal esophagus, surgical changes consistent with gastric bypass but the gastric pouch was unremarkable, and in the small bowel there was evidence of blood was seen in the blind loop and what appears to be a Dieulafoy and this was clipped otherwise the small bowel was unremarkable. - Pt received another 2 units of PRBCs 07/17/16 - GIB scan (07/17/16) --> negative - Hg now appears stable 9.4 (07/18/16) - pt transferred back to general medical floor - Pt is tolerating PO intake. - Case d/w GI service - Pt is planned for Colonoscopy 07/21/16 - Possible discharge to home vs SNF afterwards (2) Sepsis due to urinary tract infection Status: Acute Plan: - Pt required critical care mgmt - Pt had respiratory failure and required mechanical ventilation - extubated 07/13 - Abx per ID, Levaquin - request PT - Cont. PO prednisone, will taper - PRN [place] (3) Acute kidney injury Status: Acute Plan: - improving - comgmt with Nephrology - pt developed worsening of ARF with sepsis - pt required HD per Nephrology - renal function now improving - Pt off HD - Monitor (4) Thrombocytopenia Status: Acute Plan: - [place] to be related to consumption with sepsis. - Pt required platelet transfusion - Platelet count is now recovered (5) Elevated LFTs Status: Acute Plan: - Labs are improving - likely d/t pt's sepsis - observe Eligio Hernandez DO Jul 18, 2016 15:26
--- NOTE | 2016-07-18 15:38 | HHI.GIFU ---
Subjective Remarks patient is resting in bed, doing better, denies nausea, vomiting, abd pain or bleeding. States she is going to make life style changes including quitting alcohol (Elijah Garcia) Objective Vitals I&O Vital Signs Date Time Temp Pulse Resp B/P Pulse Ox O2 Delivery O2 Flow Rate FiO2 07/18/16 12:35 95 07/18/16 12:35 97.5 91 18 145/85 98 07/18/16 10:00 77 07/18/16 08:00 98.2 81 20 152/77 98 07/18/16 08:00 87 07/18/16 07:00 98 Room Air 07/18/16 06:00 74 07/18/16 04:00 98.2 84 19 153/80 99 07/18/16 04:00 96 07/18/16 02:00 86 07/18/16 00:00 98.2 90 19 139/76 96 07/18/16 00:00 80 07/17/16 23:29 100 21 07/17/16 22:00 89 07/17/16 20:00 98.1 72 17 148/65 100 07/17/16 20:00 92 07/17/16 19:00 100 Room Air 07/17/16 18:00 100 Room Air 07/17/16 18:00 96 07/17/16 16:00 90 07/17/16 16:00 100 Room Air 07/17/16 16:00 90 15 148/78 100 I/O 07/17/16 07/17/16 07/17/16 07/18/16 07/18/16 07/18/16 07:00 15:00 23:00 07:00 15:00 23:00 Intake Total 892 ml 622 ml 768 ml 1081 ml Output Total 225 ml 650 ml 1050 ml 250 ml Balance 667 ml 622 ml 118 ml 31 ml -250 ml Intake Oral 60 ml 240 ml 120 ml 230 ml IV Total 832 ml 382 ml 648 ml 851 ml Output Urine Total 225 ml 650 ml 1050 ml 250 ml # Voids 2 4 2 5 # Bowel Movements 0 1 2 0 Laboratory Laboratory Tests Test 07/17/16 07/17/16 07/18/16 07/18/16 17:45 18:00 01:08 04:43 Crossmatch Leukocyte-Reduced Red Blood Cells Blood Bank Comment Hemoglobin 10.1 9.1 9.4 Hematocrit 30.1 26.4 27.0 White Blood Count 13.7 Red Blood Count 3.10 Mean Corpuscular Volume 87.0 Mean Corpuscular Hemoglobin 30.3 Mean Corpuscular Hemoglobin 34.8 Concent Red Cell Distribution Width 17.1 Platelet Count 124 Mean Platelet Volume 10.5 Neutrophils (%) (Auto) 90.1 Lymphocytes (%) (Auto) 4.1 Monocytes (%) (Auto) 5.6 Eosinophils (%) (Auto) 0.1 Basophils (%) (Auto) 0.1 Neutrophils # (Auto) 12.3 Lymphocytes # (Auto) 0.6 Monocytes # (Auto) 0.8 Eosinophils # (Auto) 0.0 Basophils # (Auto) 0.0 CBC Comment DIFF FINAL Differential Comment Sodium Level 138 Potassium Level 4.1 Chloride Level 106 Carbon Dioxide Level 24.8 Anion Gap 7 Blood Urea Nitrogen 61 Creatinine 1.38 Estimat Glomerular Filtration 41 Rate Random Glucose 98 Calcium Level 7.3 Protein Corrected Calcium 9.1 Total Bilirubin 1.3 Aspartate Amino Transf 43 (AST/SGOT) Alanine Aminotransferase 47 (ALT/SGPT) Alkaline Phosphatase 100 Total Protein 4.0 Albumin 1.5 Date/Time Procedure Status Source Growth 07/16/16 08:45 Cancelled Stool Stool 07/15/16 11:50 Urine Culture - Final Complete Urine Random Urine [facility] Last Impressions GI Bleed Scan Nuclear Medicine 07/17/16 0000 Signed Impressions: Service Date/Time: June 14:11 - CONCLUSION: 1. No evidence of acute gastrointestinal bleed Michael Franks MD Liver Ultrasound 07/11/16 0000 Signed Impressions: Service Date/Time: Monday, July 11, 2016 20:14 - CONCLUSION: 1. Small gallstone in the region of the gallbladder neck and mild gallbladder wall thickening. 2. Common bile duct is slightly prominent 7 mm. Warren Mayorga MD Head CT 07/11/16 0000 Signed Impressions: Service Date/Time: Monday, July 11, 2016 17:40 - CONCLUSION: No acute intracranial process. Hoang Kirk MD Chest X-Ray 07/11/16 0000 Signed Impressions: Service Date/Time: Monday, July 11, 2016 09:55 - CONCLUSION: Overall improvement in the aeration of the lungs. Manny Mckeon MD Central Venous Line 07/09/16 0000 Signed Impressions: Service Date/Time: Saturday, July 09, 2016 15:12 - CONCLUSION: Uncomplicated line placement as above. Procedure was done in conjunction with a right IJ Vas-Cath placement. Hoang Kirk MD Catheter Placement X-Ray 07/09/16 0000 Signed Impressions: Service Date/Time: Saturday, July 09, 2016 15:34 - CONCLUSION: Uncomplicated line placement as above. The procedure was done in conjunction with a right subclavian central venous catheter placement Hoang Kirk MD Lower Extremity Ultrasound 07/08/16 0000 Signed Impressions: Service Date/Time: Friday, July 08, 2016 18:43 - CONCLUSION: Normal examination. Iban Mann MD Abdomen/Pelvis CT 07/07/16 0000 Signed Impressions: Service Date/Time: Thursday, July 07, 2016 14:42 - CONCLUSION: Status post gastric bypass with what may be a fluid-filled gastric remnant. This may be chronic however a blind loop syndrome should be excluded. Enlarged kidneys with diffuse cortical thickening; evaluate for possible bilateral pyelonephritis. Intestinal ileus without evidence of mechanical obstruction. Ischemic bowel should be excluded. Cholelithiasis without evidence of gallbladder inflammation. Developing anasarca Scotty Shaw MD Renal Ultrasound 07/06/16 0000 Signed Impressions: Service Date/Time: Wednesday, July 06, 2016 22:23 - CONCLUSION: Normal examination. Juan Alberto Raya MD Physical Exam HEENT: Normocephalic throat is clear NECK: Neck is supple, no JVD, no lymphadenopathy. CHEST: Chest is clear to auscultation and percussion. CARDIAC: Regular rate and rhythm with no murmur gallop or rubs. ABDOMEN: Soft, nondistended, nontender; no hepatosplenomegaly; bowel sounds are present in all four quadrants. EXTREMITIES: No clubbing, cyanosis, or edema. SKIN: Normal; no rash; no jaundice. (Elijah Garcia) Assessment and Plan Plan ASSESSMENT: - GIB, Hematochezia with maroon blood mixed within her stool. Sudden onset- 3- 4 episodes between 7:30-8:30. She has been having significant heartburn/reflux , but otherwise denies any nausea, vomiting, abdominal pain. She has never had any GI bleeding in the past. HH dropped from 9.2/27.2 to 7.1/21.7. She is receiving a fluid bolus for hypotension and 2 units of blood has been ordered. She has never had an EGD/ Colonoscopy. She has been on abx for urosepsis and stool has been sent for CDiff and this is pending. Of note, she does drink 1/2 liter per day, but denies any known history of cirrhosis. Going to room 1301. Protonix - GERD. Pt denies any usual history of this, but states she has been having significant gerd/reflux. - Anemia, H/H 9.2/27.2----> 7.1/.7. 2 units of PRBC. - Leukocytosis. Pt admitted with urosepsis- on levaquin now. CDiff negative - ARF, S/P HD. Off dialysis now. - Elevated LFTs, improving. Liver Ultrasound (07/11/16)----> 1. Small gallstone in the region of the gallbladder neck and mild gallbladder wall thickening. 2. Common bile duct is slightly prominent 7 mm. 07/18/16- no more bleeding, hgb stable at 9, EGD (07/16/16) showed Dieulafoy lesion, bleeding scan negative She is doing good today. C-diff negative, clinically doing much better PLAN: - SHIREEN - Colonoscopy on Thursday - Obtain consents - Bleeding scan is negative - Monitor labs and transfuse as needed - C. difficile is negative - Further recommendations to follow based on results of above (Elijah Garcia ) Physician Comments Patient seen and examined Agree with above Continue with current supportive care Monitor labs Plan for colonoscopy on Thursday (Steven Solano MD) Elijah Garcia Jul 18, 2016 15:38 Steven Solano MD Jul 18, 2016 22:45
[2016-07-18] MEDS: PANTOPRAZOLE SODIUM 40 MG VIAL IV PUSH SCH (17:54)
[2016-07-18] MEDS: predniSONE 10 MG TAB PO SCH (20:35)
[2016-07-18] MEDS: LORazepam 2 MG/ML VIAL IV PUSH PRN (23:27)
[2016-07-19] VITALS (9 sets, daily range): BP systolic 122–154; BP diastolic 58–77; PULSE 74–106; RESP 18–19; TEMP 97.2–98.6; O2SAT 97–100
[2016-07-19] MEDS: ACETAMINOPHEN/HYDROcodone 325 MG/5 MG TAB PO PRN ×4 (00:41→22:08)
[2016-07-19] MEDS: PANTOPRAZOLE SODIUM 40 MG VIAL IV PUSH SCH ×2 (05:16→14:57)
[2016-07-19] MEDS: CALCIUM CARBONATE 500 MG CHEWABLE TAB PO PRN (05:23)
[2016-07-19 05:53] LABS: AUTOMATED NEUTROPHIL # 13.8 TH/MM3 (1.8-7.7); BASOPHIL % 0.2 % (0.0-2.0); EOSINOPHIL % 0.2 % (0.0-4.0); HEMATOCRIT 25.8 % (35.0-46.0); LYMPH % 6.6 % (9.0-44.0); MEAN CELL VOLUME 88.2 FL (80.0-100.0); MEAN CORPUSCULAR HEMOGLOBIN 29.6 PG (27.0-34.0); MEAN CORPUSCULAR HGB CONC 33.5 % (32.0-36.0); PLATELET COUNT 150 TH/MM3 (150-450); RED BLOOD COUNT 2.92 MIL/MM3 (4.00-5.30); RED CELL DISTRIBUTION WIDTH 16.8 % (11.6-17.2); WHITE BLOOD COUNT 15.8 TH/MM3 (4.0-11.0)
[2016-07-19 05:56] LABS: HEMO FLAGS AUTO DIFF
[2016-07-19 06:23] LABS: BICARBONATE 22.8 MEQ/L (21.0-32.0); MAGNESIUM 1.7 MG/DL (1.5-2.5); POTASSIUM 4.1 MEQ/L (3.5-5.1)
[2016-07-19 06:57] LABS: CALCIUM-PROTEIN CORRECTED 9.1 MG/DL (8.5-10.1)
[2016-07-19 08:17] LABS: SCAN/DIFF AUTO DIFF CONFIRMED
[2016-07-19] MEDS: predniSONE 10 MG TAB PO SCH ×2 (08:50→22:09)
[2016-07-19] MEDS: SODIUM CHLORIDE 0.9% FLUSH 10 ML FLUSH IVF SCH (08:51)
[2016-07-19] MEDS: SODIUM CHLORIDE 0.9% FLUSH 10 ML FLUSH IVF PRN (08:51)
[2016-07-19] MEDS: SENNOSIDES SYRUP 8.8 MG/5 ML CUP PO SCH (08:55)
[2016-07-19] MEDS: DOCUSATE SODIUM 100 MG/10 ML UDC PO SCH ×2 (08:55→21:00)
--- NOTE | 2016-07-19 09:17 | HHI.NPPN ---
Subjective General Problems: Anemia Renal Failure: Acute History of Present Illness 46-year-old female with a past medical history of morbid obesity, anxiety, history of urethral stenosis came to the hospital with back pain and dark urine. I was called to see the patient for elevated BUN and creatinine. The patient previously has creatinine of 0.4-0.5 this was in 2015. Additional Remarks Transferred out of ICU. Renal function is better. Review of Systems General Constitutional: Fatigue Cardiovascular Cardiac: Palpitations, LEA Objective Data Data 07/18/16 07/19/16 19:00 07:00 Intake Total 720 ml Output Total 250 ml 700 ml Balance -250 ml 20 ml Intake Oral 720 ml Output Urine Total 250 ml 700 ml # Voids 2 Vital Signs Date Time Temp Pulse Resp B/P Pulse Ox O2 Delivery O2 Flow Rate FiO2 07/19/16 09:08 98.5 97 18 144/77 98 07/19/16 04:00 97.3 74 18 154/71 99 07/19/16 00:00 97.7 82 19 145/75 99 07/18/16 20:30 97 Room Air 07/18/16 20:30 87 07/18/16 20:00 97.2 95 18 137/71 97 07/18/16 18:35 16 07/18/16 16:00 97.2 90 18 142/75 100 07/18/16 12:35 95 07/18/16 12:35 97.5 91 18 145/85 98 07/18/16 10:00 77 -: 07/19/16 0512 07/19/16 0512 Physical Exam General Appearance: No Acute Distress, Comfortable Eyes Eye Exam: Pupils Equal Neck Neck Exam: Neck Supple Pulmonary Resp Exam: Breath Sounds Equal, No Distress, Rhonchi, Decreased Bases Cardiology CV Exam: Tachycardia Gastrointestinal/Abdomen GI Exam: Soft, Non-Tender, Bowel Sounds Present Extremeties Extremities Exam: Trace Edema Neurologic Neuro Exam: Alert, Awake, Oriented Psychiatric Psych Exam: Appropriate Responses Assessment/Plan Assessment Summary: MICHAEL/Acute Renal Failure Problem List: (1) Sinus tachycardia (2) Thrombocytopenia (3) Hyponatremia (4) UTI (lower urinary tract infection) (5) Bandemia (6) Elevated LFTs (7) Lactic acidosis (8) Sepsis (9) Acute kidney injury Plan Non oliguric. Renal function is better. Avoid nephrotoxins. Last dialysis was on 07/12/16. Curtis Ospina MD Jul 19, 2016 09:17
[2016-07-19] MEDS: LEVOFLOXACIN 500 MG PREMIX INJ 100 ML IV SCH (14:45)
--- NOTE | 2016-07-19 16:56 | HHI.GIFU ---
Subjective Remarks 46 yo female resting in no apparent distress. Denies abdominal pain. No N/V/D. Denies any signs of active bleeding. (Cass Bernal) Objective Vitals I&O Vital Signs Date Time Temp Pulse Resp B/P Pulse Ox O2 Delivery O2 Flow Rate FiO2 07/19/16 12:55 97.5 90 18 127/74 98 07/19/16 11:37 97 21 07/19/16 09:08 98.5 97 18 144/77 98 07/19/16 08:45 Room Air 07/19/16 04:00 97.3 74 18 154/71 99 07/19/16 00:00 97.7 82 19 145/75 99 07/18/16 20:30 97 Room Air 07/18/16 20:30 87 07/18/16 20:00 97.2 95 18 137/71 97 07/18/16 18:35 16 I/O 07/18/16 07/18/16 07/18/16 07/19/16 07/19/16 07/19/16 07:00 15:00 23:00 07:00 15:00 23:00 Intake Total 1081 ml 480 ml 240 ml Output Total 1050 ml 250 ml 250 ml 450 ml Balance 31 ml -250 ml 230 ml -210 ml Intake Oral 230 ml 480 ml 240 ml IV Total 851 ml Output Urine Total 1050 ml 250 ml 250 ml 450 ml # Voids 5 2 # Bowel Movements 0 Laboratory Laboratory Tests Test 07/19/16 05:12 White Blood Count 15.8 Red Blood Count 2.92 Hemoglobin 8.6 Hematocrit 25.8 Mean Corpuscular Volume 88.2 Mean Corpuscular Hemoglobin 29.6 Mean Corpuscular Hemoglobin 33.5 Concent Red Cell Distribution Width 16.8 Platelet Count 150 Mean Platelet Volume 10.1 Neutrophils (%) (Auto) 87.0 Lymphocytes (%) (Auto) 6.6 Monocytes (%) (Auto) 6.0 Eosinophils (%) (Auto) 0.2 Basophils (%) (Auto) 0.2 Neutrophils # (Auto) 13.8 Lymphocytes # (Auto) 1.0 Monocytes # (Auto) 1.0 Eosinophils # (Auto) 0.0 Basophils # (Auto) 0.0 CBC Comment AUTO DIFF Differential Comment AUTO DIFF CONFIRMED Sodium Level 139 Potassium Level 4.1 Chloride Level 109 Carbon Dioxide Level 22.8 Anion Gap 7 Blood Urea Nitrogen 46 Creatinine 1.29 Estimat Glomerular Filtration 44 Rate Random Glucose 77 Calcium Level 7.3 Protein Corrected Calcium 9.1 Magnesium Level 1.7 Total Protein 4.0 Date/Time Procedure Status Source Growth 07/16/16 08:45 Cancelled Stool Stool 07/15/16 11:50 Urine Culture - Final Complete Urine Random Urine [facility] Last Impressions GI Bleed Scan Nuclear Medicine 07/17/16 0000 Signed Impressions: Service Date/Time: June 14:11 - CONCLUSION: 1. No evidence of acute gastrointestinal bleed Michael Franks MD Liver Ultrasound 07/11/16 0000 Signed Impressions: Service Date/Time: Monday, July 11, 2016 20:14 - CONCLUSION: 1. Small gallstone in the region of the gallbladder neck and mild gallbladder wall thickening. 2. Common bile duct is slightly prominent 7 mm. Warren Mayorga MD Head CT 07/11/16 0000 Signed Impressions: Service Date/Time: Monday, July 11, 2016 17:40 - CONCLUSION: No acute intracranial process. Hoang Kirk MD Chest X-Ray 07/11/16 0000 Signed Impressions: Service Date/Time: Monday, July 11, 2016 09:55 - CONCLUSION: Overall improvement in the aeration of the lungs. Manny Mckeon MD Central Venous Line 07/09/16 0000 Signed Impressions: Service Date/Time: Saturday, July 09, 2016 15:12 - CONCLUSION: Uncomplicated line placement as above. Procedure was done in conjunction with a right IJ Vas-Cath placement. Hoang Kirk MD Catheter Placement X-Ray 07/09/16 0000 Signed Impressions: Service Date/Time: Saturday, July 09, 2016 15:34 - CONCLUSION: Uncomplicated line placement as above. The procedure was done in conjunction with a right subclavian central venous catheter placement Hoang Kirk MD Lower Extremity Ultrasound 07/08/16 0000 Signed Impressions: Service Date/Time: Friday, July 08, 2016 18:43 - CONCLUSION: Normal examination. Iban Mann MD Abdomen/Pelvis CT 07/07/16 0000 Signed Impressions: Service Date/Time: Thursday, July 07, 2016 14:42 - CONCLUSION: Status post gastric bypass with what may be a fluid-filled gastric remnant. This may be chronic however a blind loop syndrome should be excluded. Enlarged kidneys with diffuse cortical thickening; evaluate for possible bilateral pyelonephritis. Intestinal ileus without evidence of mechanical obstruction. Ischemic bowel should be excluded. Cholelithiasis without evidence of gallbladder inflammation. Developing anasarca Scotty Shaw MD Renal Ultrasound 07/06/16 0000 Signed Impressions: Service Date/Time: Wednesday, July 06, 2016 22:23 - CONCLUSION: Normal examination. Juan Alberto Raya MD Physical Exam HEENT: PERRLA. Normocephalic throat is clear NECK: Neck is supple, no JVD, no lymphadenopathy. CHEST: CTA CARDIAC: RRR ABDOMEN: Soft, nondistended, nontender; no hepatosplenomegaly; bowel sounds x 4 quadrants. EXTREMITIES: No clubbing, cyanosis, or edema. SKIN: Normal; no rash; no jaundice. (Cass Bernal) Assessment and Plan Plan ASSESSMENT: - GIB, Hematochezia with maroon blood mixed within her stool. Sudden onset- 3- 4 episodes between 7:30-8:30. She has been having significant heartburn/reflux , but otherwise denies any nausea, vomiting, abdominal pain. She has never had any GI bleeding in the past. HH dropped from 9.2/27.2 to 7.1/21.7. She is receiving a fluid bolus for hypotension and 2 units of blood has been ordered. She has never had an EGD/ Colonoscopy. She has been on abx for urosepsis and stool has been sent for CDiff and this is pending. Of note, she does drink 1/2 liter per day, but denies any known history of cirrhosis. Going to room 1301. Protonix - GERD. Pt denies any usual history of this, but states she has been having significant gerd/reflux. - Anemia, H/H 9.2/27.2----> 7.1/21.7. 2 units of PRBC. - Leukocytosis. Pt admitted with urosepsis- on levaquin now. CDiff negative - ARF, S/P HD. Off dialysis now. - Elevated LFTs, improving. Liver Ultrasound (07/11/16)----> 1. Small gallstone in the region of the gallbladder neck and mild gallbladder wall thickening. 2. Common bile duct is slightly prominent 7 mm. 07/18/16- no more bleeding, hgb stable at 9, EGD (07/16/16) showed Dieulafoy lesion, bleeding scan negative She is doing good today. C-diff negative, clinically doing much better 07/19/16-no active bleeding. H/H decreased since yesterday, 8.6/25.8. Colonoscopy planned for Thursday. PLAN: - SHIREEN - Colonoscopy on Thursday - Monitor labs - Transfuse as needed - Further recommendations to follow based on results of above Patient seen and examined by Dr. Solano and myself and this note is written on his behalf. (Cass Bernal) Physician Comments Patient seen and examined Agree with above Continue with current supportive care Monitor labs Colonoscopy on Thursday (Steven Solano MD) Cass Bernal Jul 19, 2016 16:56 Steven Solano MD Jul 19, 2016 18:23
--- NOTE | 2016-07-19 17:45 | HHI.PR ---
Subjective Remarks No new complaints. last BM 07/18 Objective Vitals Vital Signs Date Time Temp Pulse Resp B/P Pulse Ox O2 Delivery O2 Flow Rate FiO2 07/19/16 17:31 98 21 07/19/16 12:55 97.5 90 18 127/74 98 07/19/16 11:37 97 21 07/19/16 09:08 98.5 97 18 144/77 98 07/19/16 08:45 Room Air 07/19/16 04:00 97.3 74 18 154/71 99 07/19/16 00:00 97.7 82 19 145/75 99 07/18/16 20:30 97 Room Air 07/18/16 20:30 87 07/18/16 20:00 97.2 95 18 137/71 97 07/18/16 18:35 16 07/18/16 07/18/16 07/19/16 15:00 23:00 07:00 Intake Total 480 ml 240 ml Output Total 250 ml 250 ml 450 ml Balance -250 ml 230 ml -210 ml Intake Oral 480 ml 240 ml Output Urine Total 250 ml 250 ml 450 ml # Voids 2 Result Diagram: 07/19/16 0512 07/19/16 0512 Imaging Last Impressions Liver Ultrasound 07/11/16 0000 Signed Impressions: Service Date/Time: Monday, July 11, 2016 20:14 - CONCLUSION: 1. Small gallstone in the region of the gallbladder neck and mild gallbladder wall thickening. 2. Common bile duct is slightly prominent 7 mm. Warren Mayorga MD Head CT 07/11/16 0000 Signed Impressions: Service Date/Time: Monday, July 11, 2016 17:40 - CONCLUSION: No acute intracranial process. Hoang Kirk MD Chest X-Ray 07/11/16 0000 Signed Impressions: Service Date/Time: Monday, July 11, 2016 09:55 - CONCLUSION: Overall improvement in the aeration of the lungs. Manny Mckeon MD Central Venous Line 07/09/16 0000 Signed Impressions: Service Date/Time: Saturday, July 09, 2016 15:12 - CONCLUSION: Uncomplicated line placement as above. Procedure was done in conjunction with a right IJ Vas-Cath placement. Hoang Kirk MD Catheter Placement X-Ray 07/09/16 0000 Signed Impressions: Service Date/Time: Saturday, July 09, 2016 15:34 - CONCLUSION: Uncomplicated line placement as above. The procedure was done in conjunction with a right subclavian central venous catheter placement Hoang Kirk MD Lower Extremity Ultrasound 07/08/16 0000 Signed Impressions: Service Date/Time: Friday, July 08, 2016 18:43 - CONCLUSION: Normal examination. Iban Mann MD Abdomen/Pelvis CT 07/07/16 0000 Signed Impressions: Service Date/Time: Thursday, July 07, 2016 14:42 - CONCLUSION: Status post gastric bypass with what may be a fluid-filled gastric remnant. This may be chronic however a blind loop syndrome should be excluded. Enlarged kidneys with diffuse cortical thickening; evaluate for possible bilateral pyelonephritis. Intestinal ileus without evidence of mechanical obstruction. Ischemic bowel should be excluded. Cholelithiasis without evidence of gallbladder inflammation. Developing anasarca Scotty Shaw MD Renal Ultrasound 07/06/16 0000 Signed Impressions: Service Date/Time: Wednesday, July 06, 2016 22:23 - CONCLUSION: Normal examination. Juan Alberto Raya MD Objective Remarks General: NAD, AAOx3 Chest: CTA Cardiac: Regular Abd: +BS, soft ND/NT Ext: Mild edema A/P Problem List: (1) Rectal bleeding Status: Acute Plan: - comgmt with GI - Pt had three episodes of rectal bleeding on 07/16 and her H/H decreased to 6.1/ 18.8. - Pt was transfused with 2 units of PRBCs on 07/16 - Pt was transferred to [facility] on 07/16 - Her H/H improved to 9.2/26.2 but today decreased back down to 7.6/21.4 and pt had another bloody BM (07/17/16) - Protonix gtt on 07/16 --> changed to scheduled IV protonix 07/18 - EGD on 07/16/16 --> normal esophagus, surgical changes consistent with gastric bypass but the gastric pouch was unremarkable, and in the small bowel there was evidence of blood was seen in the blind loop and what appears to be a Dieulafoy and this was clipped otherwise the small bowel was unremarkable. - Pt received another 2 units of PRBCs 07/17/16 - GIB scan (07/17/16) --> negative - Hg now appears stable 9.4 (07/18/16) - pt transferred back to general medical floor - Pt is tolerating PO intake. - Case d/w GI service(07/18/16) - Pt is planned for Colonoscopy 07/21/16 - Possible discharge to home vs SNF afterwards 07/19/16 - NO new complaints - Pt interviewed and examined - continue current treatment plan as outlined above. (2) Sepsis due to urinary tract infection Status: Acute Plan: - Pt required critical care mgmt - Pt had respiratory failure and required mechanical ventilation - extubated 07/13 - Abx per ID, Levaquin - request PT - Cont. PO prednisone, will taper - PRN [place] (3) Acute kidney injury Status: Acute Plan: - improving - comgmt with Nephrology - pt developed worsening of ARF with sepsis - pt required HD per Nephrology - renal function now improving - Pt off HD - Monitor (4) Thrombocytopenia Status: Acute Plan: - [place] to be related to consumption with sepsis. - Pt required platelet transfusion - Platelet count is now recovered (5) Elevated LFTs Status: Acute Plan: - Labs are improving - likely d/t pt's sepsis - observe Eligio Hernandez DO Jul 19, 2016 17:45
[2016-07-19] MEDS: LORazepam 2 MG/ML VIAL IV PUSH PRN (22:09)
[2016-07-20] VITALS (9 sets, daily range): BP systolic 129–160; BP diastolic 62–79; PULSE 85–114; RESP 16–20; TEMP 96.3–97.8; O2SAT 97–100
[2016-07-20] MEDS: ACETAMINOPHEN/HYDROcodone 325 MG/5 MG TAB PO PRN ×3 (04:01→21:47)
[2016-07-20] MEDS: PANTOPRAZOLE SODIUM 40 MG VIAL IV PUSH SCH (04:02)
[2016-07-20 04:39] LABS: AUTOMATED NEUTROPHIL # 11.7 TH/MM3 (1.8-7.7); BASOPHIL % 0.2 % (0.0-2.0); EOSINOPHIL % 0.1 % (0.0-4.0); HEMATOCRIT 25.4 % (35.0-46.0); HEMO FLAGS DIFF FINAL; LYMPH % 5.6 % (9.0-44.0); LYMPHOCYTE # 0.8 TH/MM3 (1.0-4.8); MEAN CELL VOLUME 88.8 FL (80.0-100.0); MEAN CORPUSCULAR HEMOGLOBIN 29.5 PG (27.0-34.0); MEAN CORPUSCULAR HGB CONC 33.3 % (32.0-36.0); MONO % 6.6 % (0.0-8.0); NEUT % 87.5 % (16.0-70.0); PLATELET COUNT 149 TH/MM3 (150-450); RED BLOOD COUNT 2.86 MIL/MM3 (4.00-5.30); RED CELL DISTRIBUTION WIDTH 16.4 % (11.6-17.2); WHITE BLOOD COUNT 13.4 TH/MM3 (4.0-11.0)
[2016-07-20 04:56] LABS: BICARBONATE 23.8 MEQ/L (21.0-32.0); MAGNESIUM 1.6 MG/DL (1.5-2.5); POTASSIUM 4.5 MEQ/L (3.5-5.1)
[2016-07-20 05:23] LABS: CALCIUM-PROTEIN CORRECTED 8.9 MG/DL (8.5-10.1)
[2016-07-20] MEDS: SENNOSIDES SYRUP 8.8 MG/5 ML CUP PO SCH (09:00)
[2016-07-20] MEDS: DOCUSATE SODIUM 100 MG/10 ML UDC PO SCH ×2 (09:00→21:00)
[2016-07-20] MEDS: predniSONE 10 MG TAB PO SCH ×2 (09:30→21:47)
[2016-07-20] MEDS: SODIUM CHLORIDE 0.9% FLUSH 10 ML FLUSH IV FLUSH PRN (09:31)
[2016-07-20] MEDS: SODIUM CHLORIDE 0.9% FLUSH 10 ML FLUSH IVF SCH (09:31)
--- NOTE | 2016-07-20 10:32 | HHI.PR ---
Subjective Remarks Pt remains quite weak. Objective Vitals Vital Signs Date Time Temp Pulse Resp B/P Pulse Ox O2 Delivery O2 Flow Rate FiO2 07/20/16 09:28 Room Air 07/20/16 08:00 97.8 87 18 143/78 98 07/20/16 04:00 97.5 98 18 138/65 99 07/20/16 00:00 97.6 107 17 135/62 99 07/19/16 22:00 100 Room Air 07/19/16 20:35 102 07/19/16 20:00 98.6 98 18 138/66 100 07/19/16 18:14 97.2 106 18 122/58 99 07/19/16 17:31 98 21 07/19/16 12:55 97.5 90 18 127/74 98 07/19/16 11:37 97 21 07/19/16 07/19/16 07/20/16 15:00 23:00 07:00 Intake Total 240 ml Output Total 200 ml 500 ml Balance -200 ml -260 ml Intake Oral 240 ml Output Urine Total 200 ml 500 ml # Voids 1 Result Diagram: 07/20/16 0400 07/20/16 0400 Imaging Last Impressions Liver Ultrasound 07/11/16 0000 Signed Impressions: Service Date/Time: Monday, July 11, 2016 20:14 - CONCLUSION: 1. Small gallstone in the region of the gallbladder neck and mild gallbladder wall thickening. 2. Common bile duct is slightly prominent 7 mm. Warren Mayorga MD Head CT 07/11/16 0000 Signed Impressions: Service Date/Time: Monday, July 11, 2016 17:40 - CONCLUSION: No acute intracranial process. Hoang Kirk MD Chest X-Ray 07/11/16 0000 Signed Impressions: Service Date/Time: Monday, July 11, 2016 09:55 - CONCLUSION: Overall improvement in the aeration of the lungs. Manny Mckeon MD Central Venous Line 07/09/16 0000 Signed Impressions: Service Date/Time: Saturday, July 09, 2016 15:12 - CONCLUSION: Uncomplicated line placement as above. Procedure was done in conjunction with a right IJ Vas-Cath placement. Hoang Kirk MD Catheter Placement X-Ray 07/09/16 0000 Signed Impressions: Service Date/Time: Saturday, July 09, 2016 15:34 - CONCLUSION: Uncomplicated line placement as above. The procedure was done in conjunction with a right subclavian central venous catheter placement Hoang Kirk MD Lower Extremity Ultrasound 07/08/16 0000 Signed Impressions: Service Date/Time: Friday, July 08, 2016 18:43 - CONCLUSION: Normal examination. Iban Mann MD Abdomen/Pelvis CT 07/07/16 0000 Signed Impressions: Service Date/Time: Thursday, July 07, 2016 14:42 - CONCLUSION: Status post gastric bypass with what may be a fluid-filled gastric remnant. This may be chronic however a blind loop syndrome should be excluded. Enlarged kidneys with diffuse cortical thickening; evaluate for possible bilateral pyelonephritis. Intestinal ileus without evidence of mechanical obstruction. Ischemic bowel should be excluded. Cholelithiasis without evidence of gallbladder inflammation. Developing anasarca Scotty Shaw MD Renal Ultrasound 07/06/16 0000 Signed Impressions: Service Date/Time: Wednesday, July 06, 2016 22:23 - CONCLUSION: Normal examination. Juan Alberto Raya MD Objective Remarks General: NAD, AAOx3 Chest: CTA Cardiac: Regular Abd: +BS, soft ND/NT Ext: no c/c/e A/P Problem List: (1) Rectal bleeding Status: Acute Plan: - comgmt with GI - Pt had three episodes of rectal bleeding on 07/16 and her H/H decreased to 6.1/ 18.8. - Pt was transfused with 2 units of PRBCs on 07/16 - Pt was transferred to [facility] on 07/16 - pt had another bloody BM (07/17/16) - Pt received another 2 units of PRBCs 07/17/16 - EGD on 07/16/16 --> normal esophagus, surgical changes consistent with gastric bypass but the gastric pouch was unremarkable, and in the small bowel there was evidence of blood was seen in the blind loop and what appears to be a Dieulafoy and this was clipped otherwise the small bowel was unremarkable. - GIB scan (07/17/16) --> negative - Hg 9.4 (07/18/16), 8.6 (07/19/16), 8.5 (07/19/16) - Pt is tolerating PO intake. - PO protonix - Case d/w GI service(07/18/16) - Pt is planned for Colonoscopy 07/21/16 - likely d/c to SNF, [facility], after Colonoscopy (2) Sepsis due to urinary tract infection Status: Acute Plan: - Pt required critical care mgmt - Pt had respiratory failure and required mechanical ventilation - extubated 07/13 - stop Levaquin - PT - Cont. PO prednisone, will taper - PRN [place] (3) Acute kidney injury Status: Acute Plan: - improving - comgmt with Nephrology - pt developed worsening of ARF with sepsis - pt required HD per Nephrology - Pt off HD - renal function nearly normalized - Monitor (4) Thrombocytopenia Status: Acute Plan: - [place] to be related to consumption with sepsis. - Pt required platelet transfusion - Platelet count is now recovered (5) Elevated LFTs Status: Acute Plan: - likely d/t pt's sepsis - nearly normalized - repeat LFTs in AM - observe Eligio Hernandez DO Jul 20, 2016 10:32
--- NOTE | 2016-07-20 12:32 | HHI.GIFU ---
Subjective Remarks 46 yo female sitting up in her chair in no apparent distress. Denies abdominal pain. No N/V/D. No active bleeding. (Cass Bernal) Objective Vitals I&O Vital Signs Date Time Temp Pulse Resp B/P Pulse Ox O2 Delivery O2 Flow Rate FiO2 07/20/16 09:28 Room Air 07/20/16 08:00 97.8 87 18 143/78 98 07/20/16 04:00 97.5 98 18 138/65 99 07/20/16 00:00 97.6 107 17 135/62 99 07/19/16 22:00 100 Room Air 07/19/16 20:35 102 07/19/16 20:00 98.6 98 18 138/66 100 07/19/16 18:14 97.2 106 18 122/58 99 07/19/16 17:31 98 21 07/19/16 12:55 97.5 90 18 127/74 98 I/O 07/19/16 07/19/16 07/19/16 07/20/16 07/20/16 07/20/16 07:00 15:00 23:00 07:00 15:00 23:00 Intake Total 240 ml 240 ml Output Total 450 ml 200 ml 500 ml Balance -210 ml -200 ml -260 ml Intake Oral 240 ml 240 ml Output Urine Total 450 ml 200 ml 500 ml # Voids 2 1 Laboratory Laboratory Tests Test 07/20/16 04:00 White Blood Count 13.4 Red Blood Count 2.86 Hemoglobin 8.5 Hematocrit 25.4 Mean Corpuscular Volume 88.8 Mean Corpuscular Hemoglobin 29.5 Mean Corpuscular Hemoglobin 33.3 Concent Red Cell Distribution Width 16.4 Platelet Count 149 Mean Platelet Volume 9.7 Neutrophils (%) (Auto) 87.5 Lymphocytes (%) (Auto) 5.6 Monocytes (%) (Auto) 6.6 Eosinophils (%) (Auto) 0.1 Basophils (%) (Auto) 0.2 Neutrophils # (Auto) 11.7 Lymphocytes # (Auto) 0.8 Monocytes # (Auto) 0.9 Eosinophils # (Auto) 0.0 Basophils # (Auto) 0.0 CBC Comment DIFF FINAL Differential Comment Sodium Level 138 Potassium Level 4.5 Chloride Level 108 Carbon Dioxide Level 23.8 Anion Gap 6 Blood Urea Nitrogen 39 Creatinine 1.18 Estimat Glomerular Filtration 49 Rate Random Glucose 89 Calcium Level 7.2 Protein Corrected Calcium 8.9 Magnesium Level 1.6 Total Protein 4.1 Date/Time Procedure Status Source Growth 07/16/16 08:45 Cancelled Stool Stool Imaging Last Impressions GI Bleed Scan Nuclear Medicine 07/17/16 0000 Signed Impressions: Service Date/Time: June 14:11 - CONCLUSION: 1. No evidence of acute gastrointestinal bleed Michael Franks MD Liver Ultrasound 07/11/16 0000 Signed Impressions: Service Date/Time: Monday, July 11, 2016 20:14 - CONCLUSION: 1. Small gallstone in the region of the gallbladder neck and mild gallbladder wall thickening. 2. Common bile duct is slightly prominent 7 mm. Warren Mayorga MD Head CT 07/11/16 0000 Signed Impressions: Service Date/Time: Monday, July 11, 2016 17:40 - CONCLUSION: No acute intracranial process. Hoang Kirk MD Chest X-Ray 07/11/16 0000 Signed Impressions: Service Date/Time: Monday, July 11, 2016 09:55 - CONCLUSION: Overall improvement in the aeration of the lungs. Manny Mckeon MD Central Venous Line 07/09/16 0000 Signed Impressions: Service Date/Time: Saturday, July 09, 2016 15:12 - CONCLUSION: Uncomplicated line placement as above. Procedure was done in conjunction with a right IJ Vas-Cath placement. Hoang Kirk MD Catheter Placement X-Ray 07/09/16 0000 Signed Impressions: Service Date/Time: Saturday, July 09, 2016 15:34 - CONCLUSION: Uncomplicated line placement as above. The procedure was done in conjunction with a right subclavian central venous catheter placement Hoang Kirk MD Lower Extremity Ultrasound 07/08/16 0000 Signed Impressions: Service Date/Time: Friday, July 08, 2016 18:43 - CONCLUSION: Normal examination. Iban Mann MD Abdomen/Pelvis CT 07/07/16 0000 Signed Impressions: Service Date/Time: Thursday, July 07, 2016 14:42 - CONCLUSION: Status post gastric bypass with what may be a fluid-filled gastric remnant. This may be chronic however a blind loop syndrome should be excluded. Enlarged kidneys with diffuse cortical thickening; evaluate for possible bilateral pyelonephritis. Intestinal ileus without evidence of mechanical obstruction. Ischemic bowel should be excluded. Cholelithiasis without evidence of gallbladder inflammation. Developing anasarca Scotty Shaw MD Renal Ultrasound 07/06/16 0000 Signed Impressions: Service Date/Time: Wednesday, July 06, 2016 22:23 - CONCLUSION: Normal examination. Juan Alberto Raya MD Physical Exam HEENT: PERRLA. Normocephalic throat is clear NECK: Neck is supple, no JVD, no lymphadenopathy. CHEST: CTA CARDIAC: RRR ABDOMEN: Soft, nondistended, nontender; no hepatosplenomegaly; bowel sounds x 4 quadrants. EXTREMITIES: No clubbing, cyanosis, or edema. SKIN: Normal; no rash; no jaundice. (Cass Bernal) Assessment and Plan Plan ASSESSMENT: - GIB, Hematochezia with maroon blood mixed within her stool. Sudden onset- 3- 4 episodes between 7:30-8:30. She has been having significant heartburn/reflux , but otherwise denies any nausea, vomiting, abdominal pain. She has never had any GI bleeding in the past. HH dropped from 9.2/27.2 to 7.1/21.7. She is receiving a fluid bolus for hypotension and 2 units of blood has been ordered. She has never had an EGD/ Colonoscopy. She has been on abx for urosepsis and stool has been sent for CDiff and this is pending. Of note, she does drink 1/2 liter per day, but denies any known history of cirrhosis. Going to room 1301. Protonix - GERD. Pt denies any usual history of this, but states she has been having significant gerd/reflux. - Anemia, H/H 9.2/27.2----> 7.1/21.7. 2 units of PRBC. - Leukocytosis. Pt admitted with urosepsis- on levaquin now. CDiff negative - ARF, S/P HD. Off dialysis now. - Elevated LFTs, improving. Liver Ultrasound (07/11/16)----> 1. Small gallstone in the region of the gallbladder neck and mild gallbladder wall thickening. 2. Common bile duct is slightly prominent 7 mm. 07/18/16- no more bleeding, hgb stable at 9, EGD (07/16/16) showed Dieulafoy lesion, bleeding scan negative She is doing good today. C-diff negative, clinically doing much better 07/19/16-no active bleeding. H/H decreased since yesterday, 8.6/25.8. Colonoscopy planned for Thursday. 07/20/16-No active bleeding. H/H 8.5/25.4. Colonoscopy planned for Thursday. Bowel prep today. PLAN: - [facility] - Colonoscopy on Thursday - Bowel prep today - NPO after MN - Monitor labs - Transfuse as needed - Further recommendations to follow based on results of above Patient seen and examined by Dr. Solano and myself and this note is written on his behalf. (Cass Bernal) Physician Comments Patient seen and examined Agree with above Continue with current supportive care Monitor labs Plan for colonoscopy tomorrow (Steven Solano MD) Cass Bernal Jul 20, 2016 12:32 Steven Solano MD Jul 20, 2016 14:42
[2016-07-20] MEDS ORDERED: PEG (High)/E-LYTE SOLN 4000 ML BTL PO ONE (18:00)
[2016-07-20] MEDS: PANTOPRAZOLE SOD 40 MG DELAYED RELEASE TAB PO SCH (21:47)
[2016-07-20] MEDS: LORazepam 2 MG/ML VIAL IV PUSH PRN (23:41)
[2016-07-21] VITALS (8 sets, daily range): BP systolic 112–161; BP diastolic 65–75; PULSE 88–100; RESP 16–18; TEMP 96.9–98.4; O2SAT 97–99
[2016-07-21] MEDS: ACETAMINOPHEN/HYDROcodone 325 MG/5 MG TAB PO PRN ×2 (04:54→17:42)
[2016-07-21 05:55] LABS: AUTOMATED NEUTROPHIL # 9.3 TH/MM3 (1.8-7.7); BASOPHIL % 0.2 % (0.0-2.0); EOSINOPHIL % 0.4 % (0.0-4.0); HEMATOCRIT 24.5 % (35.0-46.0); HEMO FLAGS DIFF FINAL; LYMPH % 8.3 % (9.0-44.0); LYMPHOCYTE # 0.9 TH/MM3 (1.0-4.8); MEAN CORPUSCULAR HEMOGLOBIN 30.2 PG (27.0-34.0); MEAN CORPUSCULAR HGB CONC 33.9 % (32.0-36.0); MONO % 6.4 % (0.0-8.0); NEUT % 84.7 % (16.0-70.0); PLATELET COUNT 135 TH/MM3 (150-450); RED BLOOD COUNT 2.75 MIL/MM3 (4.00-5.30); RED CELL DISTRIBUTION WIDTH 16.6 % (11.6-17.2); WHITE BLOOD COUNT 10.9 TH/MM3 (4.0-11.0)
[2016-07-21 06:27] LABS: BICARBONATE 26.1 MEQ/L (21.0-32.0); INDIRECT BILIRUBIN 0.3 MG/DL (0.0-0.8); MAGNESIUM 1.6 MG/DL (1.5-2.5); POTASSIUM 4.1 MEQ/L (3.5-5.1); TOTAL BILIRUBIN ADULT 0.8 MG/DL (0.2-1.0)
--- NOTE | 2016-07-21 07:56 | HHI.PR ---
Subjective Remarks eager fo d/c to snf after colonoscopy Objective Vitals heart reg lung cta abd s/nt ext no edema Vital Signs Date Time Temp Pulse Resp B/P Pulse Ox O2 Delivery O2 Flow Rate FiO2 07/21/16 04:00 96.9 96 18 138/66 98 07/21/16 00:00 97.9 99 17 154/72 97 07/20/16 21:43 98 Room Air 07/20/16 20:08 98 07/20/16 20:00 97.4 94 18 144/79 98 07/20/16 17:07 97 21 07/20/16 16:43 97.3 85 16 129/66 97 07/20/16 12:00 96.3 114 20 160/74 100 07/20/16 11:00 98 07/20/16 09:28 Room Air 07/20/16 08:00 97.8 87 18 143/78 98 07/20/16 07/20/16 07/21/16 15:00 23:00 07:00 Intake Total 240 ml 1310 ml 0 ml Output Total 200 ml Balance 240 ml 1110 ml 0 ml Intake Oral 240 ml 1310 ml 0 ml Output Urine Total 200 ml # Voids 2 0 1 # Bowel Movements 0 0 2 Result Diagram: 07/21/16 0450 07/21/16 0450 Imaging Last Impressions Liver Ultrasound 07/11/16 0000 Signed Impressions: Service Date/Time: Monday, July 11, 2016 20:14 - CONCLUSION: 1. Small gallstone in the region of the gallbladder neck and mild gallbladder wall thickening. 2. Common bile duct is slightly prominent 7 mm. Warren Mayorga MD Head CT 07/11/16 0000 Signed Impressions: Service Date/Time: Monday, July 11, 2016 17:40 - CONCLUSION: No acute intracranial process. Hoang Kirk MD Chest X-Ray 07/11/16 0000 Signed Impressions: Service Date/Time: Monday, July 11, 2016 09:55 - CONCLUSION: Overall improvement in the aeration of the lungs. Manny Mckeon MD Central Venous Line 07/09/16 0000 Signed Impressions: Service Date/Time: Saturday, July 09, 2016 15:12 - CONCLUSION: Uncomplicated line placement as above. Procedure was done in conjunction with a right IJ Vas-Cath placement. Hoang Kirk MD Catheter Placement X-Ray 07/09/16 0000 Signed Impressions: Service Date/Time: Saturday, July 09, 2016 15:34 - CONCLUSION: Uncomplicated line placement as above. The procedure was done in conjunction with a right subclavian central venous catheter placement Hoang Kirk MD Lower Extremity Ultrasound 07/08/16 0000 Signed Impressions: Service Date/Time: Friday, July 08, 2016 18:43 - CONCLUSION: Normal examination. Iban Mann MD Abdomen/Pelvis CT 07/07/16 0000 Signed Impressions: Service Date/Time: Thursday, July 07, 2016 14:42 - CONCLUSION: Status post gastric bypass with what may be a fluid-filled gastric remnant. This may be chronic however a blind loop syndrome should be excluded. Enlarged kidneys with diffuse cortical thickening; evaluate for possible bilateral pyelonephritis. Intestinal ileus without evidence of mechanical obstruction. Ischemic bowel should be excluded. Cholelithiasis without evidence of gallbladder inflammation. Developing anasarca Scotty Shaw MD Renal Ultrasound 07/06/16 0000 Signed Impressions: Service Date/Time: Wednesday, July 06, 2016 22:23 - CONCLUSION: Normal examination. Juan Alberto Raya MD A/P Problem List: (1) Rectal bleeding Status: Acute Plan: - comgmt with GI - Pt had three episodes of rectal bleeding on 07/16 and her H/H decreased to 6.1/ 18.8. - Pt was transfused with 2 units of PRBCs on 07/16 - Pt was transferred to [facility] on 07/16 - pt had another bloody BM (07/17/16) - Pt received another 2 units of PRBCs 07/17/16 - EGD on 07/16/16 --> normal esophagus, surgical changes consistent with gastric bypass but the gastric pouch was unremarkable, and in the small bowel there was evidence of blood was seen in the blind loop and what appears to be a Dieulafoy and this was clipped otherwise the small bowel was unremarkable. - GIB scan (07/17/16) --> negative - Hg 9.4 (07/18/16), 8.6 (07/19/16), 8.5 (07/19/16) - Pt is tolerating PO intake. - PO protonix - Case d/w GI service(07/18/16) - Pt is planned for Colonoscopy 07/21/16 - d/c to snf today after c-scope unless problems with c-scope. (2) Sepsis due to urinary tract infection Status: Acute Plan: - Pt required critical care mgmt - Pt had respiratory failure and required mechanical ventilation - extubated 07/13 - stopped Levaquin - PT - Cont. PO prednisone, will taper - PRN [place] (3) Acute kidney injury Status: Acute Plan: - improving - comgmt with Nephrology - pt developed worsening of ARF with sepsis - pt required HD per Nephrology - Pt off HD - renal function nearly normalized - Monitor (4) Thrombocytopenia Status: Acute Plan: - [place] to be related to consumption with sepsis. - Pt required platelet transfusion - Platelet count is now recovered (5) Elevated LFTs Status: Acute Plan: - likely d/t pt's sepsis - nearly normalized - Assessment and Plan Fer Rayo MD July 21, 2016 07:56
[2016-07-21] MEDS ORDERED: HYDR-3516 PO (07:58)
[2016-07-21] MEDS ORDERED: PANT40TA3 PO (07:58)
[2016-07-21] MEDS ORDERED: LORA-474 PO (07:59)
[2016-07-21] MEDS ORDERED: PRED10 PO (07:59)
[2016-07-21] MEDS: predniSONE 10 MG TAB PO SCH (07:59)
--- NOTE | 2016-07-21 07:59 | HHI.DCPOC ---
Discharge Care Plan Diagnosis: (1) Sepsis due to urinary tract infection (2) Anemia (3) Rectal bleeding (4) Elevated LFTs (5) Hyponatremia (6) Acute kidney injury Goals to Promote Your Health * To prevent worsening of your condition and complications * To maintain your health at the optimal level Directions to Meet Your Goals Take your medications as prescribed Follow your dietary instruction Follow activity as directed Keep your appointments as scheduled Take your immunizations and boosters as scheduled If your symptoms worsen call your PCP, if no PCP go to Urgent Care Center or Emergency Room Smoking is Dangerous to Your Health. Avoid second hand smoke Call the 24-hour hour crisis hotline for domestic abuse at Fer Rayo MD July 21, 2016 07:59
[2016-07-21] MEDS: PANTOPRAZOLE SOD 40 MG DELAYED RELEASE TAB PO SCH (08:00)
[2016-07-21] MEDS: SENNOSIDES SYRUP 8.8 MG/5 ML CUP PO SCH (08:02)
[2016-07-21] MEDS: DOCUSATE SODIUM 100 MG/10 ML UDC PO SCH (08:02)
[2016-07-21] MEDS: SODIUM CHLORIDE 0.9% FLUSH 10 ML FLUSH IVF SCH (08:03)
[2016-07-21] MEDS ORDERED: PROPOFOL 200 MG/20 ML AMP IV ONE (14:48)
--- NOTE | 2016-07-21 15:25 | GIPROC ---
[facility] [address] [facility]. [facility], [address] COLONOSCOPY PROCEDURE REPORT EXAM DATE: 07/21/2016 PATIENT NAME: Nixon Worley MR #: [id number] BIRTHDATE: 1970 ENDOSCOPIST: Benoit Bauman MD ORDER #: [id number] SALES OUTFITTER: Joni Quintana RN STATUS: inpatient INDICATIONS: The patient is a 46 yr old female here for a colonoscopy due to iron deficiency anemia PROCEDURE PERFORMED: Colonoscopy, incomplete MEDICATIONS: None and Per Anesthesia. PREP QUALITY: poor PREP TYPE:GoLytely ESTIMATED BLOOD LOSS: None CONSENT: The patient understands the risks and benefits of the procedure and understands that these risks include, but are not limited to: sedation, allergic reaction, infection, perforation and/or bleeding. Alternative means of evaluation and treatment include, among others: physical exam, x-rays, and/or surgical intervention. The patient elects to proceed with this endoscopic procedure. medical equipment was checked for proper function. Hand hygiene and appropriate measures for infection prevention was taken. After the risks, benefits and alternatives of the procedure were thoroughly explained, Informed consent was verified, confirmed and timeout was successfully executed by the treatment team. A digital exam revealed external hemorrhoids The endoscope was introduced through the anus and advanced to the cecum, which was identified by both the appendix and ileocecal valve. The instrument was then slowly withdrawn as the colon was fully examined. COLON FINDINGS: Incomplete due to poor prep. Retroflexed views revealed internal hemorrhoids and Retroflexed views revealed medium internal hemorrhoids The scope was then completely withdrawn from the patient and the procedure terminated. ADVERSE EVENTS: There were no complications. IMPRESSIONS: 1. Incomplete due to poor prep 2. Retroflexed views revealed internal hemorrhoids 3. Retroflexed views revealed medium internal hemorrhoids 4. Revealed external hemorrhoids RECOMMENDATIONS: 1. Continue surveillance 2. Yearly hemoccult RECALL: Return 1 month Colonoscopy Benoit Bauman MD eSigned: Benoit Bauman MD 07/21/2016 3:24 PM cc:
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
== END 2016-07-21 17:47 | DRG 870 ==
LOC: NEPD 16:05 → INTOOBSV 19:28 → NEDA 19:28 → N04A 23:32 → HIMN 07-07 17:50 → OBSVTOIN 07-08 11:45 → N04A 07-15 19:45 → N03A 07-16 11:05 → HOCA 07-18 12:21
PROVIDERS: ADMIT Hospitalist; ATTEND Hospitalist
PROC: 30233R1 Transfusion of Nonautologous Platelets into Peripheral Vein, Percutaneous Approach (ICD-10-PCS; 2016-07-08)
PROC: 5A1955Z Respiratory Ventilation, Greater than 96 Consecutive Hours (ICD-10-PCS; principal; 2016-07-09)
PROC: 0BH17EZ Insertion of Endotracheal Airway into Trachea, Via Natural or Artificial Opening (ICD-10-PCS; 2016-07-09)
PROC: 02HV33Z Insertion of Infusion Device into Superior Vena Cava, Percutaneous Approach (ICD-10-PCS; 2016-07-09)
PROC: B546ZZA Ultrasonography of Right Subclavian Vein, Guidance (ICD-10-PCS; 2016-07-09)
PROC: 02HV33Z Insertion of Infusion Device into Superior Vena Cava, Percutaneous Approach (ICD-10-PCS; 2016-07-09)
PROC: B518ZZA Fluoroscopy of Superior Vena Cava, Guidance (ICD-10-PCS; 2016-07-09)
PROC: B543ZZA Ultrasonography of Right Jugular Veins, Guidance (ICD-10-PCS; 2016-07-09)
PROC: 5A1D60Z (ICD-10-PCS; 2016-07-10)
PROC: 30233N1 Transfusion of Nonautologous Red Blood Cells into Peripheral Vein, Percutaneous Approach (ICD-10-PCS; 2016-07-16)
PROC: 0W3P8ZZ Control Bleeding in Gastrointestinal Tract, Via Natural or Artificial Opening Endoscopic (ICD-10-PCS; 2016-07-16)
PROC: 0DJD8ZZ Inspection of Lower Intestinal Tract, Via Natural or Artificial Opening Endoscopic (ICD-10-PCS; 2016-07-21)
DX: A41.51 Sepsis due to Escherichia coli [E. coli] (principal); K72.00 Acute and subacute hepatic failure without coma; D65 Disseminated intravascular coagulation [defibrination syndrome]; K31.82 Dieulafoy lesion (hemorrhagic) of stomach and duodenum; E87.2 Acidosis; J80 Acute respiratory distress syndrome; N17.9 Acute kidney failure, unspecified; K56.7 Ileus, unspecified; E87.1 Hypo-osmolality and hyponatremia; N39.0 Urinary tract infection, site not specified; I10 Essential (primary) hypertension; E16.2 Hypoglycemia, unspecified; R00.0 Tachycardia, unspecified; J45.909 Unspecified asthma, uncomplicated; R80.9 Proteinuria, unspecified; K80.20 Calculus of gallbladder without cholecystitis without obstruction; K21.9 Gastro-esophageal reflux disease without esophagitis; D64.9 Anemia, unspecified; K64.8 Other hemorrhoids; K64.4 Residual hemorrhoidal skin tags; F41.9 Anxiety disorder, unspecified; F17.210 Nicotine dependence, cigarettes, uncomplicated; Z88.0 Allergy status to penicillin; Z88.6 Allergy status to analgesic agent; Z98.84 Bariatric surgery status
CPT/HCPCS: 31500; 36430; 36556; 36600; 70450; 71010; 74176; 76705; 76775; 76937; 77001; 78278; 80048; 80053; 80074; 80076; 80202; 81001; 82550; 82607; 82728; 82805; 82948; 83010; 83540; 83550; 83605; 83615; 83735; 84100; 84155; 84300; 85007; 85014; 85018; 85025; 85027; 85049; 85060; 85384; 85610; 85730; 86021; 86038; 86160; 86403; 86703; 86850; 86900; 86901; 86920; 87040; 87070; 87077; 87086; 87186; 87205; 87449; 87493; 87641; 90935; 93005; 93306; 93970; 94003; 94640; 94664; 96360; 96374; A9560; C1751; C1752; C9113; G0378; J0330; J0610; J0696; J1580; J1644; J1940; J1956; J2060; J2185; J2270; J2920; J3010; J3370; J3475; J3480; J7030; J7042; J7050; J7070; J7512; P9016; P9035; Q9963

== ENCOUNTER 2016-07-29 11:50 | Emergency (ER) | payer OTHER ==
[~2016-07-29] VITALS: Ht 160 cm; Wt 65.0 kg
[~2016-07-29 11:50] MED LIST changes: -CYCL-36 PO; -FURO20 PO; -HYDR-3129 PO; +HYDR-3516 PO; -HYDR-3533 PO; -LABE100 PO; +LORA-474 PO; -NYST100010 TOP; +PANT40TA3 PO; +PRED10 PO; -PREN0.01 PO; -ZOLP1TAB32 PO
[2016-07-29 11:57] VITALS: BP 164/78; PULSE 94; RESP 18; TEMP 99; O2SAT 100
[2016-07-29] MEDS ORDERED: SODIUM CHLOR 0.9% 1000 ML INJ 1,000 ML IV ONE (12:01)
--- NOTE | 2016-07-29 12:17 | PD ---
HPI Chief Complaint: Fever Time Seen by Provider: 12:12 Travel History International Travel<30 days: No Contact w/Intl Traveler<30days: No Traveled to known affect area: No History of Present Illness HPI Patient is 46-year-old female presenting to the emergency department for evaluation of fevers. Patient states the fevers have been going on for 1 week, she reports a max temp 103. She reports that last night her fever was 99. She denies any other physical complaints. She reported diarrhea yesterday, she had one hard stool followed by one loose stool, none since. She denies any nausea, vomiting, abdominal pain, chest pain, shortness of breath, headache, neck pain. Patient has chronic back pain for which she takes hydrocodone. Patient reports her back pain as a 6 out of 10, she last took pain medication at 6 AM this morning. PFSH Past Medical History Anemia: Yes (thrombocytopenia) Asthma: Yes Anxiety: Yes Depression: No Cancer: No Cardiovascular Problems: Yes High Cholesterol: No Cerebrovascular Accident: No Diabetes: No Diminished Hearing: No Endocrine: No GERD: Yes Genitourinary: Yes (URETHRAL STRETCHING) Hepatitis: No Hiatal Hernia: No Hypertension: Yes Immune Disorder: No Musculoskeletal: Yes (chronic back pain) Neurologic: Yes Immunizations Current: No Migraines: Yes Sleep Apnea: Yes Thyroid Disease: No ?: Not LMP: 07/06 : 6 Para: 1 Miscarriage: 3 : 2 Past Surgical History Abdominal Surgery: Yes (GASTRIC BYPASS) Cardiac Surgery: No Ear Surgery: No Endocrine Surgery: No Eye Surgery: No Genitourinary Surgery: Yes (URETHRAL DILATATION) Gynecologic Surgery: Yes (D&C) Oral Surgery: No Thoracic Surgery: No Tonsillectomy: Yes (ADENOIDS) Social History Alcohol Use: No Tobacco Use: Yes Substance Use: No Allergies-Medications (Allergen,Severity, Reaction): Coded Allergies: Ibuprofen (Unverified Allergy, Severe, S/P GASTRIC BYPASS, 07/06/16) Penicillin (Verified Allergy, Severe, 07/06/16) Toradol (Unverified Allergy, Severe, S/P GASTRIC BYPASS, 07/06/16) Reported Meds & Prescriptions Reported Meds & Active Scripts Active Ativan (Lorazepam) 1 Mg Tab 1 Mg PO BID PRN Hydrocodone-Acetaminophen 5-325 mg Tab 1 Tab PO Q6H PRN Review of Systems Except as stated in HPI: all other systems reviewed are Neg General / Constitutional: Positive: Fever, Chills HENT: No: Headaches Cardiovascular: No: Chest Pain or Discomfort Respiratory: No: Shortness of Breath Gastrointestinal: Positive: Changes in Bowel Habits, No: Nausea, Vomiting, Abdominal Pain, Loss of Appetite Genitourinary: Positive: Frequency, No: Dysuria, Pelvic Pain, Flank Pain, Discharge, Vaginal Bleeding Musculoskeletal: Positive: Pain (chronic back pain), No: Myalgias Neurologic: No: Weakness, Dizziness, Syncope, Focal Abnormalities Physical Exam Narrative GENERAL: Well-developed, well-nourished, alert female. Resting comfortably in no acute distress. SKIN: Focused skin assessment warm/dry. HEAD: Atraumatic. Normocephalic. EYES: Pupils equal and round. No scleral icterus. No injection or drainage. ENT: No nasal bleeding or discharge. Mucous membranes pink and moist. NECK: Trachea midline. No JVD. CARDIOVASCULAR: Regular rate and rhythm. No murmur appreciated. RESPIRATORY: No accessory muscle use. Clear to auscultation. Breath sounds equal bilaterally. GASTROINTESTINAL: Abdomen soft, non-tender, nondistended. Hepatic and splenic margins not palpable. MUSCULOSKELETAL: No obvious deformities. No clubbing. No cyanosis. Trace peripheral edema, positive pedal pulses. NEUROLOGICAL: Awake and alert. No obvious cranial nerve deficits. Motor grossly within normal limits. Normal speech. PSYCHIATRIC: Appropriate mood and affect; insight and judgment normal. Data Data Last Documented VS Vital Signs Date Time Temp Pulse Resp B/P Pulse Ox O2 Delivery O2 Flow Rate FiO2 07/29/16 12:25 18 97 Nasal Cannula 2 07/29/16 11:57 99.0 94 164/78 Orders Complete Blood Count With Diff (07/29/16 12:01) Comprehensive Metabolic Panel (07/29/16 12:01) Magnesium (Mg) (07/29/16 12:01) Urinalysis - C+S If Indicated (07/29/16 12:01) Blood Culture (07/29/16 12:01) Chest, Single Ap (07/29/16 12:01) Blood Glucose (07/29/16 12:01) Ecg Monitoring (07/29/16 12:01) Iv Access Insert/Monitor (07/29/16 12:01) Oximetry (07/29/16 12:01) Oxygen Administration (07/29/16 12:01) Sodium Chlor 0.9% 1000 Ml Inj (Ns 1000 M (07/29/16 12:01) Lactic Acid (07/29/16 12:01) Ed Urine Pregnancytest Poc (07/29/16 12:01) Urine Culture (07/29/16 13:14) Labs Laboratory Tests Test 07/29/16 07/29/16 07/29/16 12:15 12:16 13:14 White Blood Count 10.6 TH/MM3 Red Blood Count 3.23 MIL/MM3 Hemoglobin 9.4 GM/DL Hematocrit 29.8 % Mean Corpuscular Volume 92.1 FL Mean Corpuscular Hemoglobin 29.2 PG Mean Corpuscular Hemoglobin 31.7 % Concent Red Cell Distribution Width 16.3 % Platelet Count 227 TH/MM3 Mean Platelet Volume 9.7 FL Neutrophils (%) (Auto) 70.4 % Lymphocytes (%) (Auto) 20.6 % Monocytes (%) (Auto) 7.9 % Eosinophils (%) (Auto) 0.5 % Basophils (%) (Auto) 0.6 % Neutrophils # (Auto) 7.5 TH/MM3 Lymphocytes # (Auto) 2.2 TH/MM3 Monocytes # (Auto) 0.8 TH/MM3 Eosinophils # (Auto) 0.0 TH/MM3 Basophils # (Auto) 0.1 TH/MM3 CBC Comment DIFF FINAL Differential Comment Sodium Level 139 MEQ/L Potassium Level 4.1 MEQ/L Chloride Level 109 MEQ/L Carbon Dioxide Level 22.3 MEQ/L Anion Gap 8 MEQ/L Blood Urea Nitrogen 16 MG/DL Creatinine 0.91 MG/DL Estimat Glomerular Filtration 66 ML/MIN Rate Random Glucose 71 MG/DL Calcium Level 8.3 MG/DL Magnesium Level 1.8 MG/DL Total Bilirubin 0.8 MG/DL Aspartate Amino Transf 49 U/L (AST/SGOT) Alanine Aminotransferase 67 U/L (ALT/SGPT) Alkaline Phosphatase 142 U/L Total Protein 6.2 GM/DL Albumin 2.0 GM/DL Lactic Acid Level 1.2 mmol/L Urine Color YELLOW Urine Turbidity HAZY Urine pH 5.5 Urine Specific [place] 1.006 Urine Protein TRACE mg/dL Urine Glucose (UA) NEG mg/dL Urine Ketones NEG mg/dL Urine Occult Blood NEG Urine Nitrite NEG Urine Bilirubin NEG Urine Urobilinogen LESS THAN 2.0 MG/DL Urine Leukocyte Esterase SMALL Urine RBC 2 /hpf Urine WBC 8 /hpf Urine Squamous Epithelial 2 /hpf Cells Urine Bacteria FEW /hpf Urine Hyaline Casts 1 /lpf Microscopic Urinalysis Comment CATH-CULTURE IND [facility] Medical Decision Making Medical Screen Exam Complete: Yes Emergency Medical Condition: Yes Medical Record Reviewed: Yes Interpretation(s) Last Impressions Chest X-Ray 07/29/16 1201 Signed Impressions: Service Date/Time: Friday, July 29, 2016 12:03 - CONCLUSION: No acute cardiopulmonary disease identified. Hieu Freed MD Laboratory Tests Test 07/29/16 07/29/16 07/29/16 12:15 12:16 13:14 White Blood Count 10.6 TH/MM3 Red Blood Count 3.23 MIL/MM3 Hemoglobin 9.4 GM/DL Hematocrit 29.8 % Mean Corpuscular Volume 92.1 FL Mean Corpuscular Hemoglobin 29.2 PG Mean Corpuscular Hemoglobin 31.7 % Concent Red Cell Distribution Width 16.3 % Platelet Count 227 TH/MM3 Mean Platelet Volume 9.7 FL Neutrophils (%) (Auto) 70.4 % Lymphocytes (%) (Auto) 20.6 % Monocytes (%) (Auto) 7.9 % Eosinophils (%) (Auto) 0.5 % Basophils (%) (Auto) 0.6 % Neutrophils # (Auto) 7.5 TH/MM3 Lymphocytes # (Auto) 2.2 TH/MM3 Monocytes # (Auto) 0.8 TH/MM3 Eosinophils # (Auto) 0.0 TH/MM3 Basophils # (Auto) 0.1 TH/MM3 CBC Comment DIFF FINAL Differential Comment Sodium Level 139 MEQ/L Potassium Level 4.1 MEQ/L Chloride Level 109 MEQ/L Carbon Dioxide Level 22.3 MEQ/L Anion Gap 8 MEQ/L Blood Urea Nitrogen 16 MG/DL Creatinine 0.91 MG/DL Estimat Glomerular Filtration 66 ML/MIN Rate Random Glucose 71 MG/DL Calcium Level 8.3 MG/DL Magnesium Level 1.8 MG/DL Total Bilirubin 0.8 MG/DL Aspartate Amino Transf 49 U/L (AST/SGOT) Alanine Aminotransferase 67 U/L (ALT/SGPT) Alkaline Phosphatase 142 U/L Total Protein 6.2 GM/DL Albumin 2.0 GM/DL Lactic Acid Level 1.2 mmol/L Urine Color YELLOW Urine Turbidity HAZY Urine pH 5.5 Urine Specific [place] 1.006 Urine Protein TRACE mg/dL Urine Glucose (UA) NEG mg/dL Urine Ketones NEG mg/dL Urine Occult Blood NEG Urine Nitrite NEG Urine Bilirubin NEG Urine Urobilinogen LESS THAN 2.0 MG/DL Urine Leukocyte Esterase SMALL Urine RBC 2 /hpf Urine WBC 8 /hpf Urine Squamous Epithelial 2 /hpf Cells Urine Bacteria FEW /hpf Urine Hyaline Casts 1 /lpf Microscopic Urinalysis Comment CATH-CULTURE IND Vital Signs Date Time Temp Pulse Resp B/P Pulse Ox O2 Delivery O2 Flow Rate FiO2 07/29/16 11:57 99.0 94 18 164/78 100 Differential Diagnosis UTI versus URI versus pneumonia versus sepsis versus other Narrative Course Patient is a 46-year-old female presented to the department from [facility] for evaluation of fevers. Patient is afebrile currently vital signs are stable. Patient appears well. Patient was admitted to [facility] from 07/06 16/04 with urosepsis. During that admission she was on the ventilator and acute renal failure, she was subsequently on hemodialysis. She is no longer on dialysis. She also required platelet transfusion due to thrombocytopenia. She was placed in rehabilitation due to generalized weakness. Labs and imaging were ordered and pending. IV access established, patient placed on telemetry monitoring and continuous pulse oximetry. Chest x-ray shows no acute disease CBC with mild anemia however it is improved from prior on 07/21/16. Lactic acid 1.2 1350 -Dr. Hernandez patient's primary care provider at [facility] called and stated that patient was sent to emergency department due to abnormal lab values obtained at the [facility]. He states that labs were drawn and her hemoglobin reported to be 7.2 which is why she was sent to the emergency department. Patient had a history of GI bleed, EGD. He is going to verify with the [facility] regarding patient's report of fevers, however he states that he is unaware of this. He was notified of patient's current hemoglobin level. He stated to send her back to the rehabilitation if no other acute issue was identified. Dr. Hernandez called back and stated he verified with the [facility] that on 07/27 patient's max temp was 100.1 at that time he ordered a chest x-ray and UA both of which were benign. Since that time her max temp was 99.4 and that was today. Patient is currently afebrile in the emergency department. He did that he is aware of the cultures that are pending and will follow. Chemistry is unremarkable Patiently discharge back to [facility] via [facility]. She was advised on clinical findings and reassured at this time that there is no acute issue identified. She was encouraged to return if any new or worsening symptoms should arise. Patient verbalized understanding. Patient is stable for discharge. Urinalysis has a reflux culture pending, will defer treatment pending culture results. Patient does state that she has a yeast infection. Diagnosis Primary Impression: Anemia Qualified Code: D64.9 - Anemia, unspecified type Referrals: Eligio Hernandez DO Patient Instructions: General Instructions Additional Instructions: Follow-up with her primary doctor Continue home medications as previously prescribed Return to the emergency department for any new or worsening symptoms Med/Other Pt SpecificInfo: No Change to Meds Disposition: 03 DISCHARGE TO SNF Condition: Stable Ember Arthur July 29, 2016 12:17
[2016-07-29 12:25] VITALS: O2SAT 97
[2016-07-29 12:35] LABS: AUTOMATED NEUTROPHIL # 7.5 TH/MM3 (1.8-7.7); BASOPHIL # 0.1 TH/MM3 (0-0.2); BASOPHIL % 0.6 % (0.0-2.0); EOSINOPHIL % 0.5 % (0.0-4.0); HEMATOCRIT 29.8 % (35.0-46.0); HEMO FLAGS DIFF FINAL; LYMPH % 20.6 % (9.0-44.0); LYMPHOCYTE # 2.2 TH/MM3 (1.0-4.8); MEAN CELL VOLUME 92.1 FL (80.0-100.0); MEAN CORPUSCULAR HEMOGLOBIN 29.2 PG (27.0-34.0); MEAN CORPUSCULAR HGB CONC 31.7 % (32.0-36.0); MONO % 7.9 % (0.0-8.0); NEUT % 70.4 % (16.0-70.0); PLATELET COUNT 227 TH/MM3 (150-450); RED BLOOD COUNT 3.23 MIL/MM3 (4.00-5.30); RED CELL DISTRIBUTION WIDTH 16.3 % (11.6-17.2); WHITE BLOOD COUNT 10.6 TH/MM3 (4.0-11.0)
--- NOTE | 2016-07-29 12:45 | RADRPT ---
EXAM DATE/TIME: 07/29/2016 12:03 [facility] COMPARISON: CHEST SINGLE AP, July 11, 2016, 9:55. INDICATIONS : Fever for 2 days. MEDICAL HISTORY : Congestive hearrt failure. SURGICAL HISTORY : section. Gastric bypass. Tonsillectomy. ENCOUNTER: Initial ACUITY: 2 days PAIN SCORE: 0/10 LOCATION: Bilateral chest FINDINGS: Single AP view of the chest. The lungs are clear. Cardiomediastinal silhouette within normal limits. No evidence of pleural effusion or pneumothorax. CONCLUSION: No acute cardiopulmonary disease identified. Hieu Freed MD on July 29, 2016 at 12:43 Board Certified Radiologist. This report was verified electronically.
[2016-07-29 12:54] LABS: ALT (GPT) 67 U/L (10-53); ANION GAP 8 MEQ/L (5-15); AST (GOT) 49 U/L (15-37); BICARBONATE 22.3 MEQ/L (21.0-32.0); BLOOD UREA NITROGEN 16 MG/DL (7-18); CHLORIDE 109 MEQ/L (98-107); GLOMERULAR FILTRATION RATE 66 ML/MIN (>89); MAGNESIUM 1.8 MG/DL (1.5-2.5); POTASSIUM 4.1 MEQ/L (3.5-5.1); SODIUM (NA) 139 MEQ/L (136-145)
[2016-07-29 12:56] LABS: ALKALINE PHOSPHATASE 142 U/L (45-117); TOTAL BILIRUBIN ADULT 0.8 MG/DL (0.2-1.0)
[2016-07-29 13:44] LABS: BACTERIA, URINE FEW /hpf; BLOOD, URINE NEG (NEG); COMMENT (UR) CATH-CULTURE IND; CULTURE IF INDICATED CATH CULTURE IND; GLUCOSE,URINE NEG (NEG); HYALINE CAST, URINE 1 /lpf (RARE); KETONE, URINE NEG (NEG); NITRITE,URINE NEG (NEG); PH, URINE 5.5 (5.0-8.5); SQUAMOUS EPITHELIAL CELL URINE 2 /hpf (0-5); URINE COLOR YELLOW (YELLW/STRAW)
== END 2016-07-29 15:04 ==
LOC: NEPC 11:50
DX: D64.9 Anemia, unspecified (principal); I10 Essential (primary) hypertension; J45.909 Unspecified asthma, uncomplicated; F41.9 Anxiety disorder, unspecified; Z72.0 Tobacco use; Z87.448 Personal history of other diseases of urinary system
CPT/HCPCS: 71010; 80053; 81001; 83605; 83735; 84703; 85025; 87040; 87077; 87086; 87186; 96360; 99285; J7030

== ENCOUNTER → 2016-08-28 | Outpatient (CLI) | payer OTHER ==
[~2016-08-28] MED LIST changes: -PANT40TA3 PO; -PRED10 PO
== END ==
LOC: CLAB 08:58
PROVIDERS: ATTEND Family Medicine
DX: E78.4 Other hyperlipidemia (principal); I10 Essential (primary) hypertension; R73.09 Other abnormal glucose; G43.909 Migraine, unspecified, not intractable, without status migrainosus; F32.9 Major depressive disorder, single episode, unspecified; F41.8 Other specified anxiety disorders; E53.8 Deficiency of other specified B group vitamins; D64.9 Anemia, unspecified; E55.9 Vitamin D deficiency, unspecified
CPT/HCPCS: 36415; 82140

== ENCOUNTER → 2016-11-10 | Outpatient (CLI) | payer OTHER | LOC: CLAB 08:21 | PROVIDERS: ATTEND Family Medicine | DX: I10 Essential (primary) hypertension (principal); E78.4 Other hyperlipidemia; R73.09 Other abnormal glucose; G43.909 Migraine, unspecified, not intractable, without status migrainosus; F32.9 Major depressive disorder, single episode, unspecified; F41.8 Other specified anxiety disorders; E53.8 Deficiency of other specified B group vitamins; D64.9 Anemia, unspecified; E55.9 Vitamin D deficiency, unspecified | CPT/HCPCS: 36415; 82140 ==

== ENCOUNTER → 2017-01-13 | Outpatient (CLI) | payer OTHER ==
[~2017-01-13] MED LIST changes: +CELE50CA PO; +CYCL1TAB29 PO; +ESTR42.5V VAGINAL; +FERR325C PO; +FURO1TAB62 PO; +HYDR-3366 PO; +PROT40TA PO; +SPIR25TA PO; +TAMS5CAP PO; +TEMA7.5C9 PO
== END ==
LOC: CLAB 08:16
PROVIDERS: ATTEND Family Medicine
DX: E78.4 Other hyperlipidemia (principal); E55.9 Vitamin D deficiency, unspecified; I10 Essential (primary) hypertension; R73.09 Other abnormal glucose; G43.909 Migraine, unspecified, not intractable, without status migrainosus; F32.9 Major depressive disorder, single episode, unspecified; F41.8 Other specified anxiety disorders; E53.8 Deficiency of other specified B group vitamins; D64.9 Anemia, unspecified
CPT/HCPCS: 36415; 82140

== ENCOUNTER 2017-02-24 08:39 | Inpatient (IN) | payer OTHER ==
[~2017-02-24] VITALS: Ht 160 cm; Wt 64.0 kg
[~2017-02-24 08:39] MED LIST changes: +BACT800T5 PO; -CELE50CA PO; +CHOL1CAP34 PO; +CITA20TA4 PO; +CYAN1TAB24 PO; +CYCL10TA PO; -CYCL1TAB29 PO; -FERR325C PO; +FERR325T18 PO; -HYDR-3366 PO; -HYDR-3516 PO; +MULTTAB67 PO; +TEMA15CA PO; -TEMA7.5C9 PO
[2017-02-24] MEDS ORDERED: POVIDONE IODINE 5% (ANTISEPSIS KIT) 4 APPLICATIONS EACH NARE PRN (09:00)
[2017-02-24] MEDS ORDERED: metroNIDAZOLE 500 MG INJ 100 ML IV SCH (09:00)
[2017-02-24] MEDS ORDERED: ACETAMINOPHEN 1000 MG/100 ML 100 ML IV SCH (09:00)
[2017-02-24] MEDS ORDERED: LACTATED RINGER'S 1000 ML IV PRN (09:00)
[2017-02-24] MEDS ORDERED: ONDANSETRON HCL 4 MG/2 ML VIAL IV PUSH SCH (09:00)
[2017-02-24] MEDS ORDERED: METOPROLOL TARTRATE 25 MG TAB PO PRN (09:00)
[2017-02-24] MEDS ORDERED: SODIUM CHLORID 0.9% 500 ML IV PRN (09:00)
[2017-02-24] MEDS ORDERED: CHLORHEXIDINE GLUCONATE 2 % 1 PACK (2 CLOTHS) TOPICAL PRN (09:00)
[2017-02-24] MEDS ORDERED: VANCOMYCIN 1,000 MG/NS 250ML (for <70 kg) IV SCH ×2 (09:00)
[2017-02-24] MEDS ORDERED: TAMS5CAP PO ×2 (09:17)
[2017-02-24] MEDS ORDERED: HYDR-3366 PO (09:19)
[2017-02-24] MEDS ORDERED: ACETAMINOPHEN 1000 MG/100 ML 0 ML IV ONE (11:48)
[2017-02-24] MEDS ORDERED: SUGAMMADEX SODIUM 200 MG/2 ML VIAL IV PUSH ONE ×2 (11:49)
[2017-02-24] MEDS ORDERED: BUPIVACAINE/EPINEPHRINE 0.25% PF 30 ML VIAL ONE (11:59)
[2017-02-24] MEDS ORDERED: MIDAZOLAM HCL 2 MG/2 ML VIAL IV ONE (12:00)
[2017-02-24] MEDS ORDERED: DEXAMETHASONE SOD PHOS 4 MG/ML VIAL IV ONE (12:00)
[2017-02-24] MEDS ORDERED: SODIUM CHLORIDE 0.9% 20 ML VIAL IV ONE (12:00)
[2017-02-24] MEDS ORDERED: LACTATED RINGER'S 1000 ML INJ 4,000 ML IV ONE (12:00)
[2017-02-24] MEDS ORDERED: PHENYLEPH/NS 1000 MCG/10 ML SYR IV ONE (12:00)
[2017-02-24] MEDS ORDERED: LIDOCAINE HCL 1% PF 5 ML SYRINGE OTHER ONE (12:00)
[2017-02-24] MEDS ORDERED: ROCURONIUM INJ 50 MG/5 ML SYRINGE IV PUSH ONE (12:00)
[2017-02-24] MEDS ORDERED: ONDANSETRON HCL 4 MG/2 ML VIAL IV ONE (12:00)
[2017-02-24] MEDS ORDERED: PROPOFOL 200 MG/20 ML AMP IV ONE (12:00)
[2017-02-24] MEDS ORDERED: EPINEPHRINE OTHER SCH (12:30)
[2017-02-24] MEDS ORDERED: SODIUM CHLOR 0.9% OTHER SCH (12:30)
[2017-02-24] MEDS ORDERED: HYDROmorphone HCL PF 2 MG/ML VIAL ONE ×2 (12:44→15:49)
[2017-02-24] MEDS ORDERED: ENOXAPARIN SODIUM 40 MG/0.4 ML SYRINGE ONE (15:25)
[2017-02-24] MEDS ORDERED: DOCUSATE SODIUM 50 MG/SENNA 8.6 MG TAB PO PRN (18:15)
[2017-02-24] MEDS ORDERED: Post-op Orders (for Pharmacy) XX ONE (18:15)
[2017-02-24] MEDS ORDERED: ONDANSETRON HCL 4 MG/2 ML VIAL IV PUSH PRN (18:15)
[2017-02-24] MEDS ORDERED: METOCLOPRAMIDE HCL 10 MG/2 ML VIAL IVS PRN (18:15)
[2017-02-24] MEDS ORDERED: MAGNESIUM HYDROXIDE SUSP 30 ML CUP PO PRN (18:15)
[2017-02-24] MEDS ORDERED: SODIUM CHLORIDE 0.9% FLUSH 10 ML FLUSH IV FLUSH PRN (18:15)
[2017-02-24] MEDS ORDERED: HYDROmorphone HCL PF 1 MG/ML VIAL IV PUSH PRN (18:15)
[2017-02-24] MEDS ORDERED: DO NOT ADM ANY ANTICOAGULANT DRUGS PRN (19:00)
[2017-02-24] MEDS: metroNIDAZOLE 500 MG INJ 100 ML IV SCH (19:28)
[2017-02-24] MEDS ORDERED: SODIUM CHLOR 0.9% 1000 ML INJ 1,000 ML IV SCH (20:00)
[2017-02-24] MEDS ORDERED: MORPHINE SULFATE 8 MG/ML INJ ONE (20:42)
[2017-02-24] MEDS: SODIUM CHLORIDE 0.9% FLUSH 10 ML FLUSH IV FLUSH SCH (21:00)
[2017-02-24 22:15] VITALS: BP 148/77; PULSE 98; RESP 17; TEMP 96.7; O2SAT 99
[2017-02-24] MEDS: DOCUSATE SODIUM 100 MG CAP PO SCH (22:21)
[2017-02-24] MEDS: HYDROmorphone HCL 2 MG TAB PO PRN (22:21)
[2017-02-24] MEDS: VANCOMYCIN INJ 1,000 MG in SODIUM CHLOR 0.9% 250 ML INJ 250 ML IV SCH (23:42)
[2017-02-25 00:40] VITALS: BP 143/80; PULSE 89; RESP 17; TEMP 98.5; O2SAT 98
[2017-02-25 01:40] VITALS: O2SAT 98
[2017-02-25] MEDS: metroNIDAZOLE 500 MG INJ 100 ML IV SCH ×2 (03:12→11:16)
[2017-02-25] MEDS: HYDROmorphone HCL 2 MG TAB PO PRN ×3 (03:13→11:15)
[2017-02-25 04:35] VITALS: BP 134/75; PULSE 83; RESP 17; TEMP 96.8; O2SAT 99
[2017-02-25 07:06] LABS: AUTOMATED NEUTROPHIL # 4.5 TH/MM3 (1.8-7.7); BASOPHIL % 0.5 % (0.0-2.0); EOSINOPHIL % 0.1 % (0.0-4.0); HEMATOCRIT 28.7 % (35.0-46.0); HEMO FLAGS DIFF FINAL; LYMPH % 39.8 % (9.0-44.0); LYMPHOCYTE # 3.5 TH/MM3 (1.0-4.8); MEAN CELL VOLUME 100.5 FL (80.0-100.0); MEAN CORPUSCULAR HEMOGLOBIN 32.8 PG (27.0-34.0); MEAN CORPUSCULAR HGB CONC 32.6 % (32.0-36.0); MONO % 8.4 % (0.0-8.0); NEUT % 51.2 % (16.0-70.0); PLATELET COUNT 289 TH/MM3 (150-450); RED BLOOD COUNT 2.86 MIL/MM3 (4.00-5.30); RED CELL DISTRIBUTION WIDTH 13.7 % (11.6-17.2); WHITE BLOOD COUNT 8.8 TH/MM3 (4.0-11.0)
[2017-02-25 07:33] LABS: POTASSIUM 4.2 MEQ/L (3.5-5.1)
[2017-02-25 08:00] VITALS: BP 142/75; PULSE 82; RESP 19; TEMP 98; O2SAT 100
[2017-02-25] MEDS: SODIUM CHLORIDE 0.9% FLUSH 10 ML FLUSH IV FLUSH SCH (09:00)
[2017-02-25] MEDS ORDERED: PNEUMOCOCCAL POLYVALENT INJ 25 MCG/0.5 ML SYR IM ONE (09:00)
[2017-02-25] MEDS: DOCUSATE SODIUM 100 MG CAP PO SCH (11:14)
[2017-02-25] MEDS ORDERED: DILA2TAB4 PO (11:15)
[2017-02-25] MEDS: VANCOMYCIN INJ 1,000 MG in SODIUM CHLOR 0.9% 250 ML INJ 250 ML IV SCH (11:17)
[2017-02-25 11:28] VITALS: O2SAT 98
[2017-02-25 11:53] VITALS: BP 114/69; PULSE 83; RESP 20; TEMP 98.6; O2SAT 98
--- NOTE | 2017-02-25 12:58 | HHI.PR ---
Subjective Subjective Notes Pain well controlled Tolerating PO liquids Minimal drainage from GEOFF Objective Vitals/I&O Vital Signs Date Time Temp Pulse Resp B/P (MAP) Pulse Ox O2 Delivery O2 Flow Rate FiO2 02/25/17 11:53 98.6 83 20 114/69 (84) 98 02/25/17 11:28 21 02/25/17 01:40 Nasal Cannula 2.00 Labs Laboratory Tests Test 02/25/17 06:10 White Blood Count 8.8 Red Blood Count 2.86 Hemoglobin 9.4 Hematocrit 28.7 Mean Corpuscular Volume 100.5 Mean Corpuscular Hemoglobin 32.8 Mean Corpuscular Hemoglobin Concent 32.6 Red Cell Distribution Width 13.7 Platelet Count 289 Mean Platelet Volume 8.1 Neutrophils (%) (Auto) 51.2 Lymphocytes (%) (Auto) 39.8 Monocytes (%) (Auto) 8.4 Eosinophils (%) (Auto) 0.1 Basophils (%) (Auto) 0.5 Neutrophils # (Auto) 4.5 Lymphocytes # (Auto) 3.5 Monocytes # (Auto) 0.7 Eosinophils # (Auto) 0.0 Basophils # (Auto) 0.0 CBC Comment DIFF FINAL Differential Comment Blood Urea Nitrogen 9 Creatinine 0.98 Random Glucose 77 Calcium Level 7.6 Sodium Level 143 Potassium Level 4.2 Chloride Level 115 Carbon Dioxide Level 20.0 Anion Gap 8 Estimat Glomerular Filtration Rate 61 Abdomen: Post-op tenderness Wound Wound : Wound Location: Abdomen Appearance: Clean & Dry A/P Assessment and Plan 46yo F POD#1 Panniculectomy -Continue with frequent ambulation -Remain on clears until able to pass flatus, then can increase diet -Monitor GEOFF drainage daily until follow up appointment -Continue to wear abdominal binder Discharge Planning D/C home today Nomi Hernandez Feb 25, 2017 12:58
[2017-02-25] MEDS ORDERED: ENOXAPARIN SODIUM 30 MG/0.3 ML SYRINGE SQ SCH (18:00)
[2017-02-25] MEDS ORDERED: TAMSULOSIN HCL 0.4 MG CAP PO SCH (21:00)
[2017-02-26] MEDS ORDERED: SPIRONOLACTONE 25 MG TAB PO SCH (09:00)
[2017-02-26] MEDS ORDERED: CITALOPRAM HYDROBROMIDE 20 MG TAB PO SCH (09:00)
--- NOTE | 2017-03-19 07:23 | MP ---
cc: KEV CHRISTIANSEN DATE OF 1970 DATE OF OPERATION 02/24/2017 PREOPERATIVE DIAGNOSIS The recurrent skin infections at [facility]. POSTOPERATIVE DIAGNOSIS The recurrent skin infections at [facility]. PROCEDURE Panniculectomy kurt. SURGEON Kev Christiansen MD [employer]ADER[employer] DEVELOPMENT MANAGER Sunday Patton MD ANESTHESIA General endotracheal anesthesia. ESTIMATED BLOOD LOSS 100 cc. SPECIMENS None. COMPLICATIONS The patient was brought to the operating room, placed on operating table in supine position, bilateral sequential inflation device placed on lower extremities, general anesthesia instituted, a Quesada catheter placed. The abdomen was prepped and draped sterilely. Markings were made, the patient in the supine position, first a vertical marking from the xiphoid down to the pubis, followed by a suprapubic horizontal marking as well as a horizontal marking subxiphoid. Using the tailor tacking technique, the lateral edges of the patient's abdominal wall were brought to the midline with care not to make this too tight and this was stapled with skin regan. The skin regan were then marked. The regan were then removed and the lines were connected. This was to be the vertical ellipse of skin to be removed. Horizontal lines were drawn to break this ellipse up and the skin edges then infiltrated with lidocaine infused saline. The belly button was then released from the skin. The ellipse of skin was then incised with a skin knife through the subcutaneous tissue using the harmonic hook blade. This incision was carried down to the rectus fascia anteriorly. Then using the harmonic scalpel, the subcutaneous tissue and skin was lifted off of the patient's abdominal wall. It was sent off the field. Hemostasis assured. The superficial fascia was then approximated from the xiphoid to where the belly button was to be implanted. The horizontal skin markings were then created suprapubically. This ellipse of skin was infiltrated with epinephrine-infused saline and the skin incision was made in similar fashion using the skin blade, followed by the hook blade and harmonic scalpel. Once the skin was removed, the superficial fascia was approximated. The umbilicus was then reimplanted with 3-0 Vicryl suture and the inferior aspect of the abdominal wall was approximated with #2 Quill sutures. Once this was done the stapled edges were placed temporarily for skin alignment and then all skin incisions were approximated with 3-0 barbed sutures. The abdominal wall was then cleaned and sterile dressing applied. The patient was then awakened and taken to the recovery room. Kev Christiansen MD JS/SSB /5:12 PM /6:52 AM
== END 2017-02-25 14:14 | disposition home or self-care (01) | DRG 572 ==
LOC: HSDC 08:39 → HSDI 18:19 → N06A 21:59
PROVIDERS: ADMIT Surgery; ATTEND Surgery
PROC: 0JB80ZZ Excision of Abdomen Subcutaneous Tissue and Fascia, Open Approach (ICD-10-PCS; principal; 2017-02-24 12:30)
DX: M79.3 Panniculitis, unspecified (principal); F32.9 Major depressive disorder, single episode, unspecified; Z98.84 Bariatric surgery status; F17.210 Nicotine dependence, cigarettes, uncomplicated; K21.9 Gastro-esophageal reflux disease without esophagitis; F41.9 Anxiety disorder, unspecified; D64.9 Anemia, unspecified
CPT/HCPCS: 80048; 85025; 90471; 94150; G0009; J0131; J0171; J1100; J1170; J1650; J2250; J2270; J2370; J2405; J3010; J3370; J7030; J7050; J7120